=== PATIENT | female | born 1935 | race Caucasian/White ===

== ENCOUNTER 2023-11-19 13:54 | Outpatient (CLI) | payer MEDICARE, MEDICAID, SELFPAY ==
--- NOTE | ~2023-11-19 | MR_ITS ---
EXAMINATION: MR brain/brain stem wo con DATE: 11/19/2023 15:00 INDICATION: Stroke TECHNIQUE: Magnetic resonance imaging (MRI) of the brain and brainstem was performed without intraven ous contrast. Sequences included sagittal and axial T1-weighted SE, axial diffusion-weighted FS SE, a xial T2*-weighted GRE, axial T2-weighted FLAIR, and axial T2-weighted FSE. Apparent diffusion coeffic ient (ADC) maps were created. COMPARISON: None. FINDINGS: There are no areas of restricted diffusion to suggest acute infarction. 1.8 x 1.8 cm T2 hyperintense lesion in the anterior left basal ganglia involving the head of the caudate nucleus, the anterior tova tiform nucleus and the intervening anterior limb of the internal capsule. Heterogeneous internal incr eased T1 signal which can be seen with hemorrhage although there is no evident signal dropout on the T2*weighted imaging to suggest chronic blood products with hemosiderin. No evident associated mass ef fect. More typical pattern of multiple small scattered areas of nonspecific increased T2-weighted sig nal intensity in the cerebral white matter, predominantly involving the deep and periventricular whit e matter consistent with chronic small vessel ischemic disease. There are no intraparenchymal signal abnormalities seen on the other pulse sequences. Symmetric prominence of the sulci consistent with mi ld age-appropriate diffuse cerebral volume loss. The ventricles are symmetric and normal in size. Th ere are no abnormal extra-axial fluid collections. Flow voids are seen in the cerebral arteries on th e T2-weighted sequences consistent with their expected patency. Partial opacification of the left sph enoid sinus. Changes of bilateral intraocular lens replacement. Visualized orbits and soft tissues a re unremarkable. There are no areas of abnormal enhancement on the post contrast images. IMPRESSION: 1. 1.8 cm T1 and T2 hyperintense lesion at the left basal ganglia with increased T1 signal without as sociated susceptibility artifact which is suggestive of either recent intraparenchymal hemorrhage or chronic infarct with secondary necrosis. Solid neoplasm considered less likely but difficult to exclu de in the absence of intravenous contrast. Consider further evaluation with pre and postcontrast head CT. Dr. Rasheed discussed these findings with Dr. Saavedra at 4:05 PM. 2. Age-related changes including mild diffuse volume loss and mild scattered nonspecific white matter T2 hyperintensity consistent with chronic small vessel ischemic disease. Reviewed, dictated and finalized at location B. IMPRESSION: 1. 1.8 cm T1 and T2 hyperintense lesion at the left basal ganglia with increase d T1 signal without associated susceptibility artifact which is suggestive of e ither recent intraparenchymal hemorrhage or chronic infarct with secondary necr osis. Solid neoplasm considered less likely but difficult to exclude in the abs ence of intravenous contrast. Consider further evaluation with pre and postcont rast head CT. Dr. Rasheed discussed these findings with Dr. Saavedra at 4:05 P M. 2. Age-related changes including mild diffuse volume loss and mild scattered no nspecific white matter T2 hyperintensity consistent with chronic small vessel i schemic disease.
== END 2023-11-19 13:55 | disposition home or self-care (01) ==
PROVIDERS: Visit Provider Family Medicine
DX: R90.89 Other abnormal findings on diagnostic imaging of central nervous system (principal); I63.9 Cerebral infarction, unspecified; R90.82 White matter disease, unspecified
CPT/HCPCS: 70551

== ENCOUNTER 2025-07-16 12:36 | Outpatient (NON) | payer MEDICARE, MEDICAID, SELFPAY ==
[2025-07-16 13:31] LABS: Add Urine Microscopic? YES; Appearance Urine Turbid (Clear); Glucose Urine UA Negative (Negative); Leukocyte Esterase Ur 3+ LEU/UL (Negative); Need Manual Microscopic Reviewed; Nitrate Urine Negative (Negative); Specific Grav Ur 1.025 (1.001-1.035)
== END 2025-07-16 12:37 | disposition home or self-care (01) ==
LOC: ANHLAB 12:38
PROVIDERS: Visit Provider Family Medicine
DX: N39.0 Urinary tract infection, site not specified (principal)
CPT/HCPCS: 81001

== ENCOUNTER 2025-07-26 13:43 | Outpatient (NON) | payer MEDICARE, MEDICAID, SELFPAY ==
[2025-07-26 14:07] LABS: Add Urine Microscopic? YES; Appearance Urine Clear (Clear); Glucose Urine UA Negative (Negative); Leukocyte Esterase Ur 1+ LEU/UL (Negative); Nitrate Urine Negative (Negative); Non Pathogenic Casts 0-2; Specific Grav Ur 1.023 (1.001-1.035)
--- OUTSIDE RECORDS SUMMARY | 2025-07-26 14:42 | XMS_ITS | Encounter Summary ---
Author Organization [facility] Healthcare Address [address] [place] [address] Care Team Providers Care Anesthesiologists' Assistant Name Role Phone Jeffrey Pickering MD Primary Care Provider [phone] Barbra Campo PT Unavailable Unavailable Aisha Vidal YARN DRY ROOM WORKER Unavailable Denise MORENO MD, Rohit Greer Unavailable Deepali Vidal Unavailable Deepali Vidla Unavailable [phone] Tanya Sy MA Unavailable [phone] Dolly Gutierres RN Unavailable [phone] Ernestina BlumM Unavailable [phone] Peyton Cooney RN Unavailable [phone] Josue Freitas YARN DRY ROOM WORKER Unavailable UnavailJayson Razo RN Unavailable [phone] Ting Doan YARN DRY ROOM WORKER Unavailable [phone] Ute Helm RN Unavailable [phone] Ute Helm RN Unavailable [phone] Ute eHlm RN Unavailable Kimberly Hansen RN Unavailable Encounter Details Date Type Department Care Team (Late st Contact Info) Description 08/16/2017 Documentation [facility] Intensive OP Behavioral Health [address] [place] [address] 2nd [place] [address] Trudi Shelley Social History Tobacco Use Types Packs/Day Years Used Date Smoking Tobacco: Never Smokeless Tobacco: Never Alcohol Use Standard Drinks/Week Comments No 0 (1 standard drink = 0.6 oz pur e alcohol) Comments Unknown Sex and Gender Information Value Date Recorded Sex Assigned at Not on file Legal Sex Female 10:25 AM VACUUM FILTER OPERATOR Gender Identity Not on file Sexual Orientation Not on file documented as of this encounter Plan of Treatment Not on file documented as of this encounter Visit Diagnoses Not on filedocumented in this encounter Additional Health Concerns Infection Onset Date Last Indicated Resolved Time COVID: Suspected 08/18/2021 08/18/2021 08/19/2021 2:47 AM VACUUM FILTER OPERATOR COVID: Suspected 09/04/2021 09/04/2021 09/05/2021 6:13 AM VACUUM FILTER OPERATOR COVID19 09/04/2021 09/04/2021 09/14/2021 3:05 AM VACUUM FILTER OPERATOR COVID: Recovered Comment:Added based on recent COVID infection. 09/14/2021 10/23/2021 01/12/2022 3:05 AM C DT COVID: Suspected 10/19/2023 10/19/2023 10/19/2023 8:38 PM CDT COVID: Suspected 11/03/2023 11/03/2023 11/03/2023 6:00 PM CDT C. difficile suspected 11/03/2023 11/03/202311/03 1:30 AM CDT COVID: Suspected 06/18/2025 06/18/2025 06/18/2025 3:40 PM VACUUM FILTER OPERATOR documented as of this encounter Care Teams Anesthesiologists' Assistant Relationship Specialty Start Date End [place] [address] PCP - General 11/06/16 Barbra Campo PT Physical Therapist Physical Therapy 08/05/17 03/24/21 Aisha Vidal, YARN DRY ROOM WORKER Placement Coordinator 06/23/18 12/25/18 [place] [address] [facility] [address] [place] [address] Consulting Physician Neurology 10/05/18 Deepali Vidal [address] [place] [address] [address] [place] [address] ACO Care Ballistics Expert 10/03/19 10/08/19 Deepali Vidal [address] [place] [address] [address] [place] [address] ACO Care Ballistics Expert 05/09/20 05/23/20 Tanya Sy MA [address] [place] [address] [address] [place] [address] ACO Care Ballistics Expert 10/25/20 12/09/20 Dolly Gutierres RN [address] [place] [address] [address] [place] [address] Sand Screener 12/13/20 12/17/20 Ernestina Blum DPM [address] [place] [address] Consulting Physician Foot and Ankle Surg 02/08/21 Peyton Cooney, RN [address] [place] [address] [address] [place] [address] Sand Screener 02/11/21 03/24/21 Josue Freitas, CRIS [address] [place] [address] [address] [place] [address] Placement Coordinator 03/13/21 03/13/21 Jayson Harper, CAMERON [address] [place] [address] [address] [place] [address] Sand Screener 04/02/22 06/25/24 Ting Doan [address] [place] [address] Placement Coordinator 06/15/22 06/23/22 Ute Helm RN [address] [place] [address] [address] [place] [address] Sand Screener 11/15/24 12/19/24 Ute Helm RN [address] [place] [address] [address] [place] [address] Sand Screener 01/02/25 01/08/25 Ute Helm RN [address] [place] [address] [address] [place] [address] Sand Screener 01/09/25 01/17/25 Kmiberly Hansen, CAMERON [address] [place] [address] [address] [place] [address] Sand Screener 06/25/25 documented as of this encounter
--- OUTSIDE RECORDS SUMMARY | 2025-07-26 14:42 | XMS_ITS | Encounter Summary ---
Author Organization [facility] Healthcare Address [address] [place] [address] Care Team Providers Care Greige Goods Marker Name Role Phone Jeffrey Pickering MD Primary Care Provider [phone] Barbra Campo PT Unavailable Unavailable Denise MORENO MD, Carlos M. Unavailable [phone] Deepali Vidal Unavailable [phone] Tanya Sy MA Unavailable [phone] Dolly Gutierres RN Unavailable [phone] Ernestina BlumM Unavailable [phone] Peyton Cooney RN Unavailable Josue Freitas PHOTOGRAPHIC INTELLIGENCE OFFICER Unavailable Unavailabl Jayson Mcmillan RN Unavailable Ting Doan PHOTOGRAPHIC INTELLIGENCE OFFICER Unavailable Ute Helm RN Unavailable [phone] Ute Helm RN Unavailable [phone] Ute Helm RN Unavailable [phone] Kimberly Hansen RN Unavailable Encounter Details Date Type Department Care Team (Late st Contact Info) Description 03/20/2020 Telephone [facility] - Imaging [address] [place] [address] Transcribed Order, Provider Social History Tobacco Use Types Packs/Day Years Used Date Smoking Tobacco: Never Smokeless Tobacco: Never Alcohol Use Standard Drinks/Week Comments No 0 (1 standard drink = 0.6 oz pur e alcohol) PHQ-2 Answer Date Recorded PHQ-2 Score 4 03/01/2020 Comments No Sex and Gender Information Value Date Recorded Sex Assigned at Not on file Legal Sex Female 10:25 AM IOS ARCHITECT Gender Identity Not on file Sexual Orientation Not on file documented as of this encounter Plan of Treatment Not on file documented as of this encounter Visit Diagnoses Not on filedocumented in this encounter Additional Health Concerns Infection Onset Date Last Indicated Resolved Time COVID: Suspected 08/18/2021 08/18/2021 08/19/2021 2:47 AM IOS ARCHITECT COVID: Suspected 09/04/2021 09/04/2021 09/05/2021 6:13 AM IOS ARCHITECT COVID19 09/04/2021 09/04/2021 09/14/2021 3:05 AM IOS ARCHITECT COVID: Recovered Comment:Added based on recent COVID infection. 09/14/2021 10/23/2021 01/12/2022 3:05 AM C DT COVID: Suspected 10/19/2023 10/19/2023 10/19/2023 8:38 PM CDT COVID: Suspected 11/03/2023 11/03/2023 11/03/2023 6:00 PM CDT C. difficile suspected 11/03/2023 11/03/202311/03 1:30 AM CDT COVID: Suspected 06/18/2025 06/18/2025 06/18/2025 3:40 PM IOS ARCHITECT documented as of this encounter Care Teams Greige Goods Marker Relationship Specialty Start Date End [place] [address] PCP - General 11/06/16 Barbra Campo, DAWIT Physical Therapist Physical Therapy 08/05/17 03/24/21 [place] [address] [facility] [address] [place] [address] Consulting Physician Neurology 10/05/18 Deepali Vidal [address] [place] [address] [address] [place] [address] ACO Care Nylon Winder 05/09/20 05/23/20 Tanya Sy MA [address] [place] [address] [address] [place] [address] ACO Care Nylon Winder 10/25/20 12/09/20 Dolly Gutierres RN [address] [place] [address] [address] [place] [address] Outside Rigger 12/13/20 12/17/20 Ernestina Blum, DPM [address] [place] [address] Consulting Physician Foot and Ankle Surg 02/08/21 Peyton Cooney RN [address] [place] [address] [address] [place] [address] Outside Rigger 02/11/21 03/24/21 Josue Freitas LCSW [address] [place] [address] [address] [place] [address] Materials Technician 03/13/21 03/13/21 Jayson Harper, CAMERON [address] [place] [address] [address] [place] [address] Outside Rigger 04/02/22 06/25/24 Ting Doan LCSW [address] [place] [address] [address] [place] [address] Materials Technician 06/15/22 06/23/22 Ute Helm RN [address] [place] [address] [address] [place] [address] Outside Rigger 11/15/24 12/19/24 Ute Helm RN [address] [place] [address] [address] [place] [address] Outside Rigger 01/02/25 01/08/25 Ute Helm RN [address] [place] [address] [address] [place] [address] Outside Rigger 01/09/25 01/17/25 Kimberly Hansen RN [address] [place] [address] [address] [place] [address] Outside Rigger 06/25/25 documented as of this encounter
--- OUTSIDE RECORDS SUMMARY | 2025-07-26 14:42 | XMS_ITS | Encounter Summary ---
Author Organization [facility] Healthcare Address [address] [place] [address] Care Team Providers Care Depot Manager Name Role Phone Jeffery Pickering MD Primary Care Provider [phone] Barbra Campo PT Unavailable Unavailable Aisha Vidal BRACE END MAINSPRING FORMER Unavailable Denise MORENO MD, Rohit Greer Unavailable [phone] Deepali Vidal Unavailable [phone] Deepali Vidal Unavailable [phone] Tanya Sy MA Unavailable [phone] Dolly Gutierres RN Unavailable [phone] Ernestina BlumM Unavailable Peyton Cooney RN Unavailable [phone] Josue Freitas BRACE END MAINSPRING FORMER Unavailable UnavailJayson Razo RN Unavailable [phone] Ting Doan BRACE END MAINSPRING FORMER Unavailable [phone] Ute Helm RN Unavailable Ute Helm RN Unavailable [phone] Ute Helm RN Unavailable [phone] Kimberly Hansen RN Unavailable Encounter Details Date Type Department Care Team (Late st Contact Info) Description 12/06/2017 Telephone [facility] Intensive OP Behavioral Health [address] [place] [address] 2nd [place] [address] Trudi Shelley Social History Tobacco Use Types Packs/Day Years Used Date Smoking Tobacco: Never Smokeless Tobacco: Never Alcohol Use Standard Drinks/Week Comments No 0 (1 standard drink = 0.6 oz pur e alcohol) Comments Unknown Sex and Gender Information Value Date Recorded Sex Assigned at Not on file Legal Sex Female 10:25 AM PIPE STEM SAWYER Gender Identity Not on file Sexual Orientation Not on file documented as of this encounter Plan of Treatment Not on file documented as of this encounter Visit Diagnoses Not on filedocumented in this encounter Additional Health Concerns Infection Onset Date Last Indicated Resolved Time COVID: Suspected 08/18/2021 08/18/2021 08/19/2021 2:47 AM PIPE STEM SAWYER COVID: Suspected 09/04/2021 09/04/2021 09/05/2021 6:13 AM PIPE STEM SAWYER COVID19 09/04/2021 09/04/2021 09/14/2021 3:05 AM PIPE STEM SAWYER COVID: Recovered Comment:Added based on recent COVID infection. 09/14/2021 10/23/2021 01/12/2022 3:05 AM C DT COVID: Suspected 10/19/2023 10/19/2023 10/19/2023 8:38 PM CDT COVID: Suspected 11/03/2023 11/03/2023 11/03/2023 6:00 PM CDT C. difficile suspected 11/03/2023 11/03/202311/03 1:30 AM CDT COVID: Suspected 06/18/2025 06/18/2025 06/18/2025 3:40 PM PIPE STEM SAWYER documented as of this encounter Care Teams Depot Manager Relationship Specialty Start Date End Date [place] [address] PCP - General 11/06/16 Barbra Campo PT Physical Therapist Physical Therapy 08/05/17 03/24/21 Aisha Vidal, BRACE END MAINSPRING FORMER Glost Tile Shader 06/23/18 12/25/18 [place] [address] [facility] [address] [place] [address] Consulting Physician Neurology 10/05/18 Deepali Vidal [address] [place] [address] [address] [place] [address] ACO Care Registered Nurse Bone Marrow Transplant 10/03/19 10/08/19 Deepali Vidal [address] [place] [address] [address] [place] [address] ACO Care Registered Nurse Bone Marrow Transplant 05/09/20 05/23/20 Tanya Sy MA [address] [place] [address] [address] [place] [address] ACO Care Registered Nurse Bone Marrow Transplant 10/25/20 12/09/20 Dolly Gutierres RN [address] [place] [address] [address] [place] [address] Accounting Assistant 12/13/20 12/17/20 Ernestina Blum DPM [address] [place] [address] Consulting Physician Foot and Ankle Surg 02/08/21 Peyton Cooney, RN [address] [place] [address] [address] [place] [address] Accounting Assistant 02/11/21 03/24/21 Josue Freitas, CRIS [address] [place] [address] [address] [place] [address] Glost Tile Shader 03/13/21 03/13/21 Jayson Harper, CAMERON [address] [place] [address] [address] [place] [address] Accounting Assistant 04/02/22 06/25/24 Ting Doan [address] [place] [address] Glost Tile Shader 06/15/22 06/23/22 Ute Helm RN [address] [place] [address] [address] [place] [address] Accounting Assistant 11/15/24 12/19/24 Ute Helm RN [address] [place] [address] [address] [place] [address] Accounting Assistant 01/02/25 01/08/25 Ute Helm RN [address] [place] [address] [address] [place] [address] Accounting Assistant 01/09/25 01/17/25 Kimberly Hansen, CAMERON [address] [place] [address] [address] [place] [address] Accounting Assistant 06/25/25 documented as of this encounter
--- OUTSIDE RECORDS SUMMARY | 2025-07-26 14:42 | XMS_ITS | Encounter Summary ---
Author Organization [facility] Healthcare Address [address] [place] [address] Care Team Providers Care Welding Instructor Name Role Phone Jeffrey Pickering MD Primary Care Provider [phone] Denise MORENO MD, Rohit Greer Unavailable [phone] Ernestina Blum DPM Unavailable Jayson Harper RN Unavailable Ting DoanW Unavailable Ute Helm RN Unavailable [phone] Ute Helm RN Unavailable [phone] Ute Helm RN Unavailable [phone] Kimberly Hansen RN Unavailable [phone] Encounter Details Date Type Department Care Team (Late st Contact Info) Description 06/27/2021 Documentation [facility] Physical Therapy - [address] [facility] [place] [address] Traci Rangel, SUPERVISOR PASTE MIXING Social History Tobacco Use Types Packs/Day Years Used Date Smoking Tobacco: Never Smokeless Tobacco: Never Alcohol Use Standard Drinks/Week Comments No 0 (1 standard drink = 0.6 oz pur e alcohol) Social Connection and Isolation Panel Answer Date Recorded In a typical week, how many times do you talk on the phone with family, friends, or neighbors? More than three times a week 05/06/2020 How often do you get togethe r with friends or relatives? More than three times a week 05/06/2020 How often do you attend chur ch or jain services? Never 05/06/2020 Do you belong to any clubs o r organizations such as holiness groups, unions, fraternal or athletic groups, or school groups? No 05/06/2020 How often do you attend meet ings of the clubs or organizations you belong to? Never 05/06/2020 Are you , , di vorced, , never , or living with a partner? 05/06/2020 AUDIT-C Answer Date Recorded Q1: How often do you have a drink containing alc ohol? Never 02/05/2021 Average Number of Drinks Not on file 021 Frequency of Binge Drinking Not on file 01/09 Overall Financial Resource Strain (CARDIA) Answe r Date Recorded How hard is it for you to pa y for the very basics like food, housing, medical care, and heating? Not hard at all 05/06/2020 PHQ-2 Answer Date Recorded PHQ-2 Total Score (If total score is 3 or more points, staff should administer the PHQ-9) 3 06/30/2021 Hunger Vital Sign Answer Date Recorded Within the past 12 months, y ou worried that your food would run out before you got the money to buy more. Never true 05/06/20 20 Within the past 12 months, t he food you bought just didn't last and you didn't have money to get more. Never true 05/06/2020 PRAPARE - Transportation Answer Date Re corded In the past 12 months, has l ack of transportation kept you from medical appointments or from getting medications? No 04/10 In the past 12 months, has l ack of transportation kept you from meetings, work, or from getting things needed for daily living? No 05/06/2020 Housing Stability Vital Sign Answer Chris e Recorded In the last 12 months, was t here a time when you were not able to pay the mortgage or rent on time? No 03/14/2021 In the last 12 months, how many places have you lived? 2 03/14/2021 In the last 12 months, was t here a time when you did not have a steady place to sleep or slept in a alf (including now)? No 03/14/2021 Comments No Sex and Gender Information Value Date Recorded Sex Assigned at Not on file Legal Sex Female 10:25 AM SHED BOSS Gender Identity Not on file Sexual Orientation Not on file documented as of this encounter Plan of Treatment Not on file documented as of this encounter Goals Goal Patient Goal Type Associated Problems Recent Progress Patient-Stated? Author BH-Pain Behavioral Health Improving(12/2019 3:56 PM SHED BOSS) No Gwen Rm, RN Note: Patient will establish a comfort-function goal and identify the pain level that will allow the patient to perform desired activities and achieve an acceptable quality of life. documented as of this encounter Visit Diagnoses Not on filedocumented in this encounter Additional Health Concerns Infection Onset Date Last Indicated Resolved Time COVID: Suspected 08/18/2021 08/18/2021 08/19/2021 2:47 AM SHED BOSS COVID: Suspected 09/04/2021 09/04/2021 09/05/2021 6:13 AM SHED BOSS COVID19 09/04/2021 09/04/2021 09/14/2021 3:05 AM SHED BOSS COVID: Recovered Comment:Added based on recent COVID infection. 09/14/2021 10/23/2021 01/12/2022 3:05 AM C DT COVID: Suspected 10/19/2023 10/19/2023 10/19/2023 8:38 PM CDT COVID: Suspected 11/03/2023 11/03/2023 11/03/2023 6:00 PM CDT C. difficile suspected 11/03/2023 11/03/202311/03 1:30 AM CDT COVID: Suspected 06/18/2025 06/18/2025 06/18/2025 3:40 PM SHED BOSS documented as of this encounter Care Teams Welding Instructor Relationship Specialty Start Date End Date Jeffrey Pickering MD [address] [place] [address] PCP - General 11/06/16 [place] [address] [facility] [address] [place] [address] Consulting Physician Neurology 10/05/18 Ernestina Blum, TROYM [address] [place], [place] [address] Consulting Physician Foot and Ankle Surg 02/08/21 Jayson Harper, CAMERON [address] [place], [place] [address] Alodize Machine Helper 04/02/22 06/25/24 Ting Doan, SCREW MACHINE REPAIRER[address] [place] [address] Fish And Wildlife Warden 06/15/22 06/23/22 Ute Helm RN [address] [place] [address] [address] [place] [address] Alodize Machine Helper 11/15/24 12/19/24 Ute Helm RN [address] [place] [address] [address] [place] [address] Alodize Machine Helper 01/02/25 01/08/25 Ute Helm RN [address] [place] [address] [address] [place] [address] Alodize Machine Helper 01/09/25 01/17/25 Kimberly Hansen RN [address] [place] [address] [address] [place] [address] Alodize Machine Helper 06/25/25 documented as of this encounter
--- OUTSIDE RECORDS SUMMARY | 2025-07-26 14:43 | XMS_ITS | Encounter Summary ---
Author Organization [facility] Healthcare Address [address] [place] [address] Care Team Providers Care Sales Representative Public Utilities Name Role Phone Jeffrey Pickering MD Primary Care Provider [phone] Denise MORENO MD, Rohit Greer Unavailable [phone] Ernestina Blum DPM Unavailable Kimberly Hansen RN Unavailable [phone] Reason for Visit * Reason Onset Date Comments Medical Question/Miscellaneous 06/26/2025 Encounter Details Date Type Department Care Team (Late st Contact Info) Description 06/26/2025 Telephone [facility] [address] [address] Jeffrey Pickering MD [address] [place] [id number] Medical Question/Miscellaneous Social History Tobacco Use Types Packs/Day Years Used Date Smoking Tobacco: Never Smokeless Tobacco: Never Alcohol Use Standard Drinks/Week Comments No 0 (1 standard drink = 0.6 oz pur e alcohol) OASIS D0700: Social Isolation Answer Da te Recorded Frequency of experiencing loneliness or isolatio n Never 05/30/2025 OASIS A1250: Transportation Answer Date Recorded Lack of Transportation (Medical) No 05/30/2025 Lack of Transportation (Non-Medical) No 05/30/2025 Patient Unable or Declines to Respond No 05/30/2025 OASIS B1300: Health Literacy Answer Chris e Recorded Frequency of needing help to read materials from doctor or pharmacy Always 05/30/2025 AUDIT-C Answer Date Recorded Q1: How often do you have a drink containing alc ohol? Monthly or less 09/30/2023 Q2: How many drinks containi ng alcohol do you have on a typical day when you are drinking? 1 or 2 09/30/2023 Q3: How often do you have si x or more drinks on one occasion? Never 09/30/2023 Overall Financial Resource Strain (CARDIA) Answe r Date Recorded How hard is it for you to pa y for the very basics like food, housing, medical care, and heating? Patient unable to answer 01/02/2025 PHQ-2 Answer Date Recorded PHQ-2 Total Score (If total score is 3 or more points, staff should administer the PHQ-9) 1 05/08/2025 PRAPARE - Transportation Answer Date Re corded In the past 12 months, has l ack of transportation kept you from medical appointments or from getting medications? Patient unable to answer 01/02/2025 In the past 12 months, has l ack of transportation kept you from meetings, work, or from getting things needed for daily living? Patient unable to answer 01/02/2025 Housing Stability Vital Sign Answer Chris e Recorded In the last 12 months, was t here a time when you were not able to pay the mortgage or rent on time? No 10/20/2023 In the last 12 months, how many places have you lived? 1 10/20/2023 In the last 12 months, was t here a time when you did not have a steady place to sleep or slept in a care home (including now)? No 10/20/2023 PHQ-9 Answer Date Recorded PHQ-9 Total Score 14 05/04/2024 Housing Stability Vital Sign Answer Chris e Recorded In the last 12 months, was t here a time when you were not able to pay the mortgage or rent on time? Patient unable to answer 01/02/2025 Number of Times Moved in the Last Year Not on fi le 01/02/2025 At any time in the past 12 m [facility], were you homeless or living in a care home (including now)? Patient unable to answer 01/02/2025 Social Connection and Isolation Panel Answer Date Recorded In a typical week, how many times do you talk on the phone with family, friends, or neighbors? More than three times a week 06/19/2025 How often do you get togethe r with friends or relatives? More than three times a week 06/19/2025 How often do you attend chur ch or mandaen services? Never 06/19/2025 Do you belong to any clubs o r organizations such as anabaptism groups, unions, fraternal or athletic groups, or school groups? No 06/19/2025 How often do you attend meet ings of the clubs or organizations you belong to? Never 06/19/2025 Marital Status 06/19/2025 Overall Financial Resource Strain (CARDIA) Answe r Date Recorded How hard is it for you to pa y for the very basics like food, housing, medical care, and heating? Not hard at all 06/19/2025 Hunger Vital Sign Answer Date Recorded Within the past 12 months, y ou worried that your food would run out before you got the money to buy more. Never true 06/19/20 25 Within the past 12 months, t he food you bought just didn't last and you didn't have money to get more. Never true 06/19/2025 PRAPARE - Transportation Answer Date Re corded In the past 12 months, has l ack of transportation kept you from medical appointments or from getting medications? No 06/09 In the past 12 months, has l ack of transportation kept you from meetings, work, or from getting things needed for daily living? No 06/19/2025 Housing Stability Vital Sign Answer Chris e Recorded In the last 12 months, was t here a time when you were not able to pay the mortgage or rent on time? No 06/19/2025 In the past 12 months, how m any times have you moved where you were living? 0 06/19/2025 At any time in the past 12 m [facility], were you homeless or living in a care home (including now)? No 06/19/2025 [facility] Utilities Answer Date Recorded In the past 12 months has th e electric, gas, oil, or water company threatened to shut off services in your home? No 06/19/2025 Personal Safety Answer Date Recorded Have you ever been in or are you currently in a harmful physical or emotional relationship or is someone making you feel afraid or unsafe? Denies 06/18/2025 Education Answer Date Recorded What is the highest level of school you have completed or the highest degree you have received? 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 She saw Patient on 06-23-2025, and is calling with an Update. Started care on Wednesday, and Patient agreed to Nursing, P.T., and O.T. Does message need to be routed? Yes-Action Needed BOARD ERECTOR HELPER documented in this encounter Plan of Treatment Not on file documented as of this encounter Goals Goal Patient Goal Type Associated Problems Recent Progress Patient-Stated? Author ANNETTE General Goal - Patient is knowledgeable about condition when worsening and how to respond ACO Care Management Kimberly Taylor, RN Note: Problem: Knowledge deficit related to signs and symptoms of worsening condition Interventions: - Assess patient's level of understanding related to their condition(s), specific medications and self-management of their chronic conditions. - Send educational materials to patient related to their chronic condition, including signs and symptoms, self-management actions, and serious symptoms that require urgent medical intervention. - Assist patient/provider in developing an action plan for symptom management. - Review with patient weekly: s/s worsening condition, self-management actions to take, when to call CM or provider. BH-Pain Behavioral Health Improving( 3:56 PM BILLBOARD ERECTOR HELPER) Gwen Gardner RN Note: Patient will establish a comfort-function goal and identify the pain level that will allow the patient to perform desired activities and achieve an acceptable quality of life. documented as of this encounter Visit Diagnoses Not on filedocumented in this encounter Care Teams Sales Representative Public Utilities Relationship Specialty Start Date End Date Jeffrey Pickering MD [address] [place] [address] PCP - General 11/06/16 [place] [id number] [facility] [address] [address] Consulting Physician Neurology 10/05/18 Ernestina Blum DPM [address] [place] [id number] Consulting Physician Foot and Ankle Surg 02/08/21 Kimberly Hansen RN [address] [place] [address] [address] [place] [address] Bindery Worker 06/25/25 documented as of this encounter
--- OUTSIDE RECORDS SUMMARY | 2025-07-26 14:43 | XMS_ITS | Encounter Summary ---
Author Organization [facility] Healthcare Address [address] [place] [address] Care Team Providers Care Detective Precinct Name Role Phone Jeffrey Pickering MD Primary Care Provider [phone] Denise MORENO MD, Rohit Greer Unavailable [phone] Ernestina Blum DPM Unavailable [phone] Kimberly Hansen RN Unavailable Reason for Visit * Reason Onset Date Comments Additional Services Or Orders 06/29/2025 Encounter Details Date Type Department Care Team (Late st Contact Info) Description 06/29/2025 Telephone [facility] [address] [place] [address] Jeffrey Pickering MD [address] [place] [address] Additional Services Or Orders Social History Tobacco Use Types Packs/Day Years [...] more points, staff should administer the PHQ-9) 0 07/03/2025 PRAPARE - Transportation Answer Date Re corded [...] any time in the past 12 m [facility], were you homeless or living in a care home (including now)? Patient unable to answer 01/02/2025 Social Connection and Isolation Panel Answer Date Recorded In a typical week, how many times do you talk on the phone with family, friends, or neighbors? More than three times a week 07/03/2025 How often do you get togethe r with friends or relatives? More than three times a week 07/03/2025 How often do you attend chur ch or confucianism services? Never 07/03/2025 Do you belong to any clubs o r organizations such as jainism groups, unions, fraternal or athletic groups, or school groups? No 07/03/2025 How often do you attend meet ings of the clubs or organizations you belong to? Never 07/03/2025 Are you , , di vorced, , never , or living with a partner? 07/03/2025 Overall Financial Resource Strain (CARDIA) Answe r Date Recorded How hard is it for you to pa y for the very basics like food, housing, medical care, and heating? Not hard at all 07/03/2025 Hunger Vital Sign Answer Date Recorded Within the past 12 months, y ou worried that your food would run out before you got the money to buy more. Never true 07/03/20 25 Within the past 12 months, t he food you bought just didn't last and you didn't have money to get more. Never true 07/03/2025 PRAPARE - Transportation Answer Date Re corded In the past 12 months, has l ack of transportation kept you from medical appointments or from getting medications? No 06/10 In the past 12 months, has l ack of transportation kept you from meetings, work, or from getting things needed for daily living? No 07/03/2025 Housing Stability Vital Sign Answer Chris e Recorded In the last 12 months, was t here a time when you were not able to pay the mortgage or rent on time? No 07/03/2025 In the past 12 months, how m any times have you moved where you were living? 0 07/03/2025 At any time in the past 12 m [facility], were you homeless or living in a care home (including now)? No 07/03/2025 [facility] Utilities Answer Date Recorded In the past 12 months has th [employer] electric, gas, oil, or water company threatened to shut off services in your home? 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 FYI Dr Pickering STERED NURSE CARDIOVASCULAR ICU * Telephone Encounter - Gerald Ortiz - 06/29/2025 3:58 PM CST Additional Services or Orders Type of Service Requested:Occupational Therapy Duration/Number of Visits: 1 x week for 4 weeks Is a verbal order acceptable? Yes Reason for Request (e.g. condition/symptom, date of COVID exposure if applicable): Upper body strengthen and showering Details Regarding Additional Services (e.g. type of home health, type of equipment, type of test, etc.): OT Where will services be performed? (if outside of the practice, facility name, address, phone/fax offacility): In home Additional Comments: n/a Does message need to be routed? Yes-Action Needed STERED NURSE CARDIOVASCULAR ICU documented in this encounter Plan of Treatment Not on file documented as of this encounter Goals Goal Patient Goal Type Associated Problems Recent Progress Patient-Stated? Author ANNETTE General Goal - Patient is knowledgeable about condition when worsening and how to respond ACO Care Management No Kimberly Hansen, RN Note: Problem: Knowledge deficit related to [...] provider. BH-Pain Behavioral Health Improving( 3:56 PM REGISTERED NURSE CARDIOVASCULAR ICU) No Gwen Rm RN Note: Patient will establish a comfort-function goal and identify the pain level that will allow the patient to perform desired activities and achieve an acceptable quality of life. documented as of this encounter Visit Diagnoses Not on filedocumented in this encounter Care Teams Detective Precinct Relationship Specialty Start Date End Date Jeffrey Pickering MD [address] [place] [address] PCP - General 11/06/16 [place] [address] [facility] [address] [address] Consulting Physician Neurology 10/05/18 Ernestina Blum DPM [address] [place] [id number] Consulting Physician Foot and Ankle Surg 02/08/21 Kimberly Hansen, [place] [address] [place] [address] [address] [place] [address] Vehicle Insurance Agent 06/25/25 documented as of this encounter
--- OUTSIDE RECORDS SUMMARY | 2025-07-26 14:43 | XMS_ITS | Clinical Summary ---
Author Organization [facility] Address [address] [place] [address] Care Team Providers Care Comfort Filler Name Role Phone Jeffrey Pickering MD Primary Care Provider [phone] Denise MORENO MD, Rohit Greer Unavailable [phone] Ernestina Blum DPM Unavailable Kimberly Hansen RN Unavailable Allergies Active Allergy Reactions Criticality Noted Date Comments Sulfamethoxazole-Trimetho prim Rash Medium 03/13/2019 Morgan Pepper Nausea & Vomiting Low 01/03/2020 Clindamycin Itching Low Dimenhydrinate Rash Medium 09/26/2015 Feathers Shortness of breath High 01/03/2020 Iodides Hives High Iodine Hives High 09/26/2015 Meperidine Itching Low Severe itching Mold Shortness of breath High 01/03/2020 Propoxyphene-Acetaminophe n Itching Low 10/22/2023 Severe itching Rivastigmine Itching High 10/28/2021 Sulfa (Sulfonamide Antibiotics) Itching Low 02/05/2021 Medications vitamin B complex (B COMPLEX ORAL)Indications:Pr evention Take 1 tablet by mouth daily Active acetaminophen (TYLENOL) 500 mg tabletIndications:P ain Take 1 tablet (500 mg total) by mouth 2 (two) times a day Take 2 tablets by mouth at bedtime every day. Take 2 tablets by mouth in the morning as needed for pain Active fluticasone propionate (FLONASE) 50 mcg/actuation nasal sprayIndications:Al lergic Rhinitis Administer 2 sprays into each nostril daily 3 each 4 01/17/20 24 Active melatonin 5 mg tabletIndications:S leep aid Take 1 tablet (5 mg total) by mouth nightly 05/04/20 24 Active gabapentin (NEURONTIN) 600 mg tabletIndications:N europathic Pain TAKE ONE TABLET TWICE DAILY 180 tablet 08/18/19 25 Active levothyroxine (SYNTHROID) 25 mcg tabletIndications:h ypothyroidism TAKE ONE TABLET EVERY DAY 30 tablet 10/24/19 25 Active clopidogreL (PLAVIX) 75 mg tabletIndications:C erebral Thromboembolism Prevention Take 1 tablet (75 mg total) by mouth daily 30 tablet 11/01/19 25 026 Active memantine (NAMENDA) 10 mg tabletIndications:M oderate to Severe Alzheimer's Type Dementia TAKE ONE TABLET TWICE DAILY 60 tablet 12/09/19 25 Active atorvastatin (LIPITOR) 80 mg tabletIndications:h yperlipidemia TAKE ONE TABLET EVERY NIGHT 30 tablet 12/09/19 25 Active dicyclomine (BENTYL) 20 mg tabletIndications:A bdominal Pain with Cramps TAKE TWO TABLETS TWICE DAILY 120 tablet 12/09/19 25 Active aspirin 81 mg enteric coated tabletIndications:p revention of thrombosis TAKE ONE TABLET EVERY DAY 30 tablet 12/09/19 25 Active escitalopram (LEXAPRO) 10 mg tabletIndications:G eneralized Anxiety Disorder TAKE ONE TABLET EVERY DAY 90 tablet 12/09/[address] (PROTONIX) 40 mg EC tabletIndications:T reatment of Non-Bleeding Gastric Disorder TAKE ONE TABLET EVERY DAY 90 tablet 12/09/19 25 Active multivitamin tabletIndications:V itamin Deficiency Prevention Take 1 tablet by mouth Active polyvinyl alcohol (LIQUIFILM TEARS) 1.4 % ophthalmic solutionIndications :Dry Eye Administer 1 drop into affected eye(s) 3 (three) times a day as needed Active meloxicam (MOBIC) 7.5 mg tabletIndications:O steoarthritis TAKE ONE TABLET EVERY DAY 30 tablet 11 04/27/20 25 Active hyoscyamine (LEVSIN) 0.125 mg SL tabletIndications:U rinary Incontinence TAKE TWO TABLETS TWICE DAILY WITH BREAKFAST AND LUNCH 120 tablet 11 04/27/20 25 Active meclizine (ANTIVERT) 12.5 mg tabletIndications:M eniere's disease, unspecified laterality Take 1 tablet (12.5 mg total) by mouth 3 (three) times a day as needed for dizziness 270 tablet 4 05/08/20 25 Active tiZANidine (ZANAFLEX) 2 mg tablet TAKE ONE TABLET TWICE DAILY 180 tablet 11 05/25/20 25 Active donepeziL (ARICEPT) 5 mg tablet TAKE ONE TABLET EVERY NIGHT 30 tablet 2 05/28/20 25 Active cinacalcet (SENSIPAR) 30 mg tablet Take 1 tablet (30 mg total) by mouth daily 30 tablet 06/23/20 25 Active ubrogepant (UBRELVY) 100 mg tabletIndications:M igraine Take 1 tablet (100 mg total) by mouth once as needed for migraine May repeat dose once in 2 hours if no relief. Do not exceed 2 doses in 24 hours. 10 tablet 5 06/28/20 25 026 Active azelastine (OPTIVAR) 0.05 % ophthalmic solutionIndications :Allergic Conjunctivitis ADMINISTER 1 DROP INTO BOTH EYES 2 (TWO) TIMES A DAY 6 mL 3 07/13/20 25 Active polyethylene glycol (MIRALAX) 17 gram/dose bulk powderIndications:C onstipation Predominant Irritable Bowel Syndrome,constipati on Take 17 g by mouth daily 1530 g 3 05/04/20 24 025 Discontinu ed(Therapy completed) ubrogepant (UBRELVY) 100 mg tabletIndications:M igraine Take 1 tablet (100 mg total) by mouth once as needed for migraine May repeat dose once in 2 hours if no relief. Do not exceed 2 doses in 24 hours. 10 tablet 5 09/28/19 25 025 Discontinu ed(Reorder ) cefdinir (OMNICEF) 300 mg capsuleIndications: Urinary Tract/Genitourinary Infection Take 1 capsule (300 mg total) by mouth 2 (two) times a day for 7 doses 7 capsule 06/22/20 25 025 cephalexin (KEFLEX) 500 mg capsule Take 1 capsule (500 mg total) by mouth 2 (two) times a day for 7 days 14 capsule 07/04/20 25 025 ciprofloxacin (CIPRO) 500 mg tabletIndications:U rinary Tract/Genitourinary Infection Take 1 tablet (500 mg total) by mouth 2 (two) times a day for 7 days 14 tablet 07/17/20 25 025 Active Problems Problem Noted Date Diagnosed Date Weakness 04/10/2025 Assessment & Plan (04/10/2025 11:11 AM CDT): Most likely multifactorial and will continuye to follow electrolytes and renal function. Continue to support physical therapy at home and will montior response. No change. Recurrent falls 04/10/2025 Assessment & Plan (04/10/2025 11:11 AM CDT): Home health and will follow response. Near syncope 04/10/2025 Assessment & Plan (04/10/2025 11:11 AM CDT): Most likely multifactorial and will continue to montior response. No chest pains/palptiations. Acute UTI 04/10/2025 Assessment & Plan (04/10/2025 11:12 AM CDT): Reivewe dimprot fo hydration and refer to cephalexin for UTI. Gait instability 02/15/2025 Acute cystitis with hematuria 01/01/2025 Mixed hyperlipidemia 09/04/2024 Assessment & Plan (09/04/2024 11:47 AM CORE FEEDER): Stable continue Lipitor Pressure injury of sacral region, stage 1 2023 Assessment & Plan (07/25/2024 3:23 PM CORE FEEDER): NO open area. Pressure relieving patch noted on area. Will continue to monitor and place referral to home health. Class 1 obesity due to exces s calories with serious comorbidity and body mass index (BMI) of 30.0 to 30.9 in adult 07/25/2024 Assessment & Plan (05/08/2025 1:44 PM CDT): Weight appropriate for patient. Assessment & Plan (01/18/2025 2:14 PM CDT): Weight appropriate for patient. Assessment & Plan (10/31/2024 3:45 PM CDT): Weight appropriate for patient. Assessment & Plan (07/25/2024 3:24 PM CORE FEEDER): Weight appropriate for patient. Polypharmacy 05/04/2024 Assessment & Plan (05/04/2024 1:46 PM CDT): Will refer to [facility] due to several medications on list that may be able to be discontinued and help with fatigue and other symptoms. Will review medication list from pharmacy as well and update list. Allergic conjunctivitis and rhinitis, bilateral 05/04/2024 Assessment & Plan (05/04/2024 1:48 PM CDT): Azelastine eye drops ordered. Could be causing stomach pain and poor appetite due to post nasal drainage. Bilateral carotid artery stenosis 02/25/2024 Assessment & Plan (09/04/2024 11:46 AM CORE FEEDER): Severe bilateral carotid artery disease based on duplex has had progression of her left-sided disease, overall asymptomatic. Given her underlying dementia I do not think intervention is appropriate at this time. I discussed these findings with the patient and her daughter. Continue risk factor modification with ASA statin therapy. Assessment & Plan (02/25/2024 12:08 PM CDT): Severe left ICA stenosis and moderate right ICA stenosis. Discussed findings with the patient and her daughter, given her underlying cognitive dysfunction and overall she is asymptomatic from her carotid disease I would recommend medical management with ASA statin therapy good blood pressure control. Her stroke during her hospitalization appears to be not related to the carotid disease. Continue ongoing surveillance follow up in 6-12 months. Atherosclerotic heart diseas e of [place] coronary artery with other forms of angina pectoris 12/07/2023 Assessment & Plan (05/08/2025 1:44 PM CDT): See above Assessment & Plan (12/07/2023 2:08 PM CDT): Secondary prevention and will continue to follow response. Atherosclerosis of left carotid artery Assessment & Plan (01/28/2024 11:39 AM CDT): Severe greater than 70% stenosis of the left ICA based on duplex. Based on her MRI I do not think her stroke would be attributable to her carotid however she may have greater than 80% stenosis. CTA head and neck ordered for further evaluation, discussed with the patient and her daughter ultimately if she has high-grade stenosis and may need surgical intervention we will need to discuss further given her underlying cognitive dysfunction. Continue ASA Plavix statin therapy good blood pressure control. Altered mental status, unspe cified altered mental status type 11/03/2023 Hypercalcemia 10/20/2023 UTI (urinary tract infection) 10/20/2023 Hypertensive emergency 10/20/2023 Cerebrovascular accident (CVA), unspecified mech anism 10/19/2023 Assessment & Plan (05/08/2025 1:44 PM CDT): Stable and well controlled. Continues on Plavix, Atorvastatin, and ASA for prevention. Will continue to monitor. Assessment & Plan (10/31/2024 3:45 PM CDT): COntinue secondary preventoin and reviewed recommendation for f/u with vascular surgery. Continues on Plavix, Atorvastatin, ASA, and tight control BP and cholesterol. Will continue to monitor. Orders: clopidogreL (PLAVIX) 75 mg tablet; Take 1 tablet (75 mg total) by mouth daily CBC with auto differential; Future Assessment & Plan (12/07/2023 2:05 PM CDT): COntinue secondary preventoin and reviewed recommendation for f/u with vascular sdurgeyr. Coronary artery disease invo lving coronary bypass graft of [place] heart without angina pectoris 05/16/2023 Assessment & Plan (05/08/2025 1:44 PM CDT): COntinue secondary preventoin and reviewed recommendation for f/u with vascular surgery. Continues on Plavix, Atorvastatin, ASA, and tight control BP and cholesterol. Will continue to monitor. Assessment & Plan (04/10/2025 11:10 AM CDT): Secondary prevention. Continues on DAPT and high intenstiy statin therapy. No acute changes. Assessment & Plan (10/31/2024 3:45 PM CDT): COntinue secondary preventoin and reviewed recommendation for f/u with vascular surgery. Continues on Plavix, Atorvastatin, ASA, and tight control BP and cholesterol. Will continue to monitor. Orders: clopidogreL (PLAVIX) 75 mg tablet; Take 1 tablet (75 mg total) by mouth daily Assessment & Plan (12/07/2023 2:06 PM CDT): Secondary pevnetoni and continues on clopidogre and aspirin. COntinues on statin therapy. Vertigo 05/15/2023 Alzheimer's dementia 01/27/2022 Assessment & Plan (05/08/2025 1:44 PM CDT): Stable and no worsening noted. Continues on Aricept and Namenda. Will continue to monitor. Assessment & Plan (09/30/2023 1:29 PM CORE FEEDER): Has good support system. Accompanied by caregiver today. Printed instructions provided as well. Chronic pain of multiple joints 04/24/2021 Assessment & Plan (05/08/2025 1:44 PM CDT): Stable and well controlled. Will continue on Gabapentin, Tylenol, Tizanidine, and monitoring. Bruising 08/13/2020 Assessment & Plan (08/13/2020 3:01 PM CORE FEEDER): Labs ordered; will contact Mrs Trujillo w/results once rec'd. Other specified abnormal findings of blood chemi stry 08/13/2020 Assessment & Plan (08/13/2020 2:56 PM CORE FEEDER): CBC, iron panel & ferritin ordered. Will have completed at [facility]. Will contact Mrs Trujillo w/results once rec'd. Does not do mychart. No blood in stool or urine. Cervical myofascial pain syndrome 06/13/2020 Bandemia 05/03/2020 Essential hypertension 05/03/2020 Assessment & Plan (05/08/2025 1:44 PM CDT): Stable and controlled. Will continue to monitor. Will continue on Amlodipine. Assessment & Plan (01/18/2025 2:14 PM CDT): Was started on Amlodipine for elevated blood pressure. Stable and controlled. Will continue to monitor. Assessment & Plan (10/31/2024 3:45 PM CDT): Blood pressure stable and well controlled. Not taking HTN medication. Will continue to monitor. Assessment & Plan (09/04/2024 11:47 AM CORE FEEDER): Stable, antihypertensives has been discontinued. Assessment & Plan (07/25/2024 2:49 PM CORE FEEDER): Blood pressure stable and well controlled. Still controlled without medications. Assessment & Plan (02/25/2024 12:08 PM CDT): Stable, antihypertensives has been discontinued. Hyponatremia 05/03/2020 s/p C3-7 lami/ C2-T1 PSF on 05/02/[address] 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 Continues on Gabapentin, Tizanidine, and Tylenol. Encouraged to continue use of Rolator for mobility support. Assessment & Plan (05/04/2024 1:50 PM CDT): Encouraged to continue use of Rolator for mobility support. Assessment & Plan (12/07/2023 2:06 PM CDT): No increased claudicatory sypmtoms. Paitent has responded to PT and OT. Markedly improved mobility and no falls since 15 November 2023. Would be amenable to continued PT. Insomnia secondary to chronic pain 01/03/2020 Assessment & Plan (05/08/2025 1:44 PM CDT): Stable and controlled. Continues on Gabapentin and Melatonin. Allergic rhinitis 09/11/2019 Assessment & Plan (05/08/2025 1:44 PM CDT): Stable and well controlled. Will continue on PRN Flonase. Will continue to montior. Assessment & Plan (09/11/2019 3:22 PM CORE FEEDER): Nasal saline spray (Simply saline, Little Remedies, Interior, [place]) 2 second sprays or 2 squeezes into each nostril while looking down over the sink, do not need to sniff in. Followed by Flonase 2 sprays into each nostril while looking down over the sink, do not sniff in or blow nose after use daily Use the saline 3 times daily Use adhesive eye glasses pads to eye glasses Precancerous lesion 08/15/2019 Assessment & Plan (08/15/2019 9:15 PM CORE FEEDER): Referral to Dr Mata. Contact info given to Mrs Trujillo. Aware that Dr Mata's office should call to set up but she can call if no call rec'd by end of this week. History of gastric bypass 05/26/2018 History of iron deficiency 05/26/2018 Assessment & Plan (08/14/2019 11:10 AM CORE FEEDER): To call Dr Tamez at [facility] to set up appt/lab testing if needed. Last CBC WNL 06/2018. Chronic fatigue 08/06/2017 Assessment & Plan (07/25/2024 2:49 PM CORE FEEDER): Will change the Lexapro to nightly to see if that helps with fatigue. Will continue to monitor. Assessment & Plan (08/13/2020 2:59 PM CORE FEEDER): Labs ordered. Will contact Mrs Trujillo once rec'd. She does not use the TiVUSt function. Discussed activity; she has been increasing activity as she can. Uses wheeled walker, improving strength. Has completed PT for recent c-spine surgery. Meniere's disease 08/06/2017 Assessment & Plan (05/08/2025 1:44 PM CDT): Having increased dizziness. Will start on Meclizine and monitor. May be orthostatic in nature. Discussed making positional changes slowly. Orders: meclizine (ANTIVERT) 12.5 mg tablet; Take 1 tablet (12.5 mg total) by mouth 3 (three) times a day as needed for dizziness Assessment & Plan (09/30/2023 1:29 PM CORE FEEDER): Chronic. Safety reviewed. Will continue to monitor. Major depressive disorder, recurrent episode, mo derate 07/13/2017 Assessment & Plan (05/08/2025 1:44 PM CDT): Stable and well controlled. Will continue on Lexapro. Will continue to monitor. Assessment & Plan (10/31/2024 3:45 PM CDT): Stable and well controlled. Will continue on Lexapro. Will continue to monitor. Assessment & Plan (07/25/2024 2:48 PM CORE FEEDER): Will change Lexapro to nightly to see if that helps with fatigue. Will continue to monitor. Assessment & Plan (05/04/2024 1:41 PM CDT): Continue on Lexapro and stable moods. Assessment & Plan (12/07/2023 2:08 PM CDT): MOod is stable. WOuld continue to benefit from increased social interaction and would benefit from assisted living facilty arrangement. IBS (irritable bowel syndrome) 05/20/2017 Assessment & Plan (05/08/2025 1:44 PM CDT): Stable and well controlled. No recent flare ups. Will continue on MiraLAX, Bentyl, Levsin,and monitoring. Assessment & Plan (10/31/2024 3:45 PM CDT): Stable and well controlled. Will continue on MiraLAX and Bentyl. Will continue to monitor. Assessment & Plan (05/04/2024 1:41 PM CDT): Dealing with constipation at this time. Will continue on Bentyl and Levsin. Assessment & Plan (09/30/2023 1:29 PM CORE FEEDER): Diarrhea. Benign abd exam. Hold colace. Continue with water intake. Monitor response. Can apply desitin to buttock. Set on soft cushions or doughnut if having tailbone pain. Red flags reviewed. Neuropathy 03/14/2015 Overview (09/17/2017): Peripheral neuropathy Assessment & Plan (05/08/2025 1:44 PM CDT): Stable and controlled. Will continue on Gabapentin. Will continue to monitor. Assessment & Plan (10/31/2024 3:45 PM CDT): Stable and controlled. Will continue on Gabapentin. Will continue to monitor. Assessment & Plan (07/25/2024 2:46 PM CORE FEEDER): Chronic and stable. Well controlled with Gabapentin. Will continue. Assessment & Plan (05/04/2024 1:39 PM CDT): Continue with Gabapentin. Stable at this time. Assessment & Plan (08/14/2019 11:11 AM CORE FEEDER): To decrease gabapentin from 1200mg bid to 600mg tid. To hold on tramadol only with moderate to severe pain. Discussed brain fog/confusion w/each of these medications. Can cause dizziness. Hypothyroidism 12/23/2013 Overview (09/17/2017): Hypothyroidism Assessment & Plan (05/08/2025 1:44 PM CDT): Euthyroid. Will continue on Synthroid. Will continue to monitor. Assessment & Plan (10/31/2024 3:45 PM CDT): Labs ordered. Euthyroid. Will continue on Synthroid. Will continue to monitor. Orders: T4, free; Future TSH; Future Assessment & Plan (07/25/2024 2:35 PM CORE FEEDER): Euthyroid. TSH and T4 are normal. Will continue on Synthroid. Will continue to monitor. Assessment & Plan (05/04/2024 1:38 PM CDT): TSH and T4 ordered will continue on Levothyroxine. Will adjust if needed once labs are back. Assessment & Plan (08/13/2020 2:53 PM CORE FEEDER): Lab Results Component Value Date TSH 2.98 09/26/2018 TSH 7.60 (H) 08/06/2017 TSH 3.69 12/03/2016 No TFTs in chart since 2019. TSH/T4 ordered; will contact with results when received. Reviewed med SE & scheduling. Reviewed sxs hypo/hyperthyroidism. No changes at this time. Assessment & Plan (12/01/2017 5:18 PM CDT): 08/06/17 TSH 7.60-need to recheck-This could be a cause of her symptoms Hyperlipidemia due to type 2 diabetes mellitus 0 12/23/2013 Overview (11/13/2016): HYPERLIPIDEMIA NEC/NOS Assessment & Plan (05/08/2025 1:44 PM CDT): Lipid panel stable and LDL at goal of 70. Will continue Atorvastatin. Assessment & Plan (10/31/2024 3:45 PM CDT): Lipid panel stable and LDL at goal of 70. Will continue Atorvastatin. Orders: Lipid panel; Future Assessment & Plan (07/25/2024 2:37 PM CORE FEEDER): Lipid panel stable and LDL at goal of 70. Will continue Atorvastatin. Assessment & Plan (05/04/2024 1:40 PM CDT): Lipid panel ordered. Will continue on Atorvastatin. Assessment & Plan (02/25/2024 12:08 PM CDT): Stable continue Lipitor 80 mg. Assessment & Plan (01/28/2024 11:39 AM CDT): Stable continue Lipitor 80 mg Ulnar neuropathy of both upper extremities Resolved Problems Problem Noted Date Diagnosed Date Resolved Date Moderate dementia 02/15/2025 05/08/2025 Moderate protein-calorie malnutrition 01/03/2025 06/21/2025 Simple chronic bronchitis 10/31/2024 Assessment & Plan (10/31/2024 3:45 PM CDT): Stable and well controlled. No recent flare ups. Need for influenza vaccination 05/04/2024 01/03/2025 Assessment & Plan (05/04/2024 1:44 PM CDT): [facility] Hyperkalemia 05/04/2024 01/03/2025 Assessment & Plan (05/04/2024 1:45 PM CDT): CMP ordered was elevated at previous appointment will recheck to ensure back to normal. Advised to continue to not take supplemental potassium or high potassium foods. Controlled type 2 diabetes m baldemar without complication, without long-term current use of insulin 12/07/2023 01/03/2025 Assessment & Plan (10/31/2024 3:45 PM CDT): Lab Results Component Value Date HGBA1C 5.4 07/24/2024 HGBA1C 5.1 10/20/2023 HGBA1C 5.6 06/29/2023 Stable and well controlled. Will continue monitor. Orders: Comprehensive metabolic panel; Future Hemoglobin A1c; Future Assessment & Plan (07/25/2024 3:23 PM CORE FEEDER): Stab Assessment & Plan (05/04/2024 1:44 PM CDT): Lab Results Component Value Date HGBA1C 5.1 10/20/2023 HGBA1C 5.6 06/29/2023 HGBA1C 5.0 11/19/2022 Will order and check A1C Assessment & Plan (12/07/2023 2:07 PM CDT): Secondray prevneiotn. Diet and execise. Severe obesity (BMI 35.0-39. 9) with comorbidity 12/07/2023 10/31/2024 Assessment & Plan (12/07/2023 2:07 PM CDT): Encourage healthy food chocies. WOuld benefit from nturitional support available in an assisted living facility. Type 2 diabetes mellitus wit h diabetic polyneuropathy, without long-term current use of insulin 12/07/2023 01/03/2025 Assessment & Plan (10/31/2024 3:45 PM CDT): See neuropathy above. Orders: Comprehensive metabolic panel; Future Assessment & Plan (12/07/2023 2:08 PM CDT): Stable. NO hyhpoglycemic symptoms. Intraparenchymal hemorrhage of brain 10/20/2023 05/08/2025 STEMI (ST elevation myocardial infarction) 02/15/2023 05/08/2025 Assessment & Plan (02/22/2023 2:25 PM CDT): Patient is feeling well post hospital discharge. Blood pressure well controlled. She is taking medications as prescribed (Brilinta, lisinopril, metoprolol, and atorvastatin). Some SOB but feels this is overall her baseline, discussed side effects of brilinta use and will continue to monitor. Normal exam and well- appearing in office today. She is scheduled for follow up with cardiology next month. We discussed signs and symptoms that would warrant patient returned to the emergency department, patient with life Alert necklace. Dizziness 11/18/2022 01/03/2025 Cellulitis of fourth toe of left foot 02/05/2021 01/03/2025 Neuropathic ulcer of right foot (CMS/HCC) 10/18/2020 11/03/2021 Abscess or cellulitis of foot 10/17/2020 01/03/2025 BMI 30.0-30.9,adult 08/13/2020 02/23/20 Assessment & Plan (08/13/2020 3:01 PM CORE FEEDER): Reviewed need to lose weight, reviewed health benefits. Reviewed recommendations for daily intake & activity 20-30 minutes/day. Discussed healthy diet and importance of regular physical activity. Moderate malnutrition (CMS/HCC) 05/22/2020 11/03/2021 Moderate malnutrition 05/03/20202020 Long-term current use of opiate analgesic 03/01/2020 12/06/2023 Degenerative cervical spinal stenosis 02/07/2020 01/03/2025 Midline thoracic back pain 01/17/2020 0 05/08/2025 Cervical radiculopathy 01/17/202008/13 Lumbar radiculopathy 01/03/2020 025 Nasal pain 09/11/2019 01/03/2025 Assessment & Plan (09/11/2019 3:22 PM CORE FEEDER): Nasal saline spray (Simply saline, Little Remedies, Interior, [place]) 2 second sprays or 2 squeezes into each nostril while looking down over the sink, do not need to sniff in. Followed by Flonase 2 sprays into each nostril while looking down over the sink, do not sniff in or blow nose after use daily Use the saline 3 times daily Use adhesive eye glasses pads to eye glasses Skin ulcer of right foot, li mited to breakdown of skin 09/06/2019 08/13/2020 Medicare annual wellness visit, subsequent 08/15/2019 01/03/2025 Assessment & Plan (05/04/2024 1:49 PM CDT): In regard to health maintenance, Influenza vaccine- given at appt Pneumococcal vaccine- UTD Eat a healthy diet: focus on lean meats and proteins, more fruits, vegetables and whole grains and low in sugars and fats. Limit red meat and avoid processed meat. Maintain a healthy weight; avoid being overweight. Aim for a normal body mass index (BMI) of 18.5-24.9. Help learning to eat healthier, we can set up appointment with cider maker/ceramic tiler. Have an active lifestyle, strive for 30 minutes of moderate exercise 5 times a week and strength or resistance training at least twice a week. Use broad-spectrum (UVA+UVB) sunscreen with SPF 30 or greater, is water resistant, limit time spent in the sun (10 am-4pm), wear hat, wear UV protective clothing, wear sunglasses. Never use a tanning bed. Skin that was irradiated may be more sensitive over your lifetime. Limit alcohol intake, 1 drink per day for a woman and 2 drinks per day for a man. Assessment & Plan (08/15/2019 9:14 PM CORE FEEDER): DEXA ordered. Will contact with results once received. BMI 31.0-31.9,adult 08/15/2019 08/13/19 21 Assessment & Plan (08/15/2019 9:14 PM CORE FEEDER): Reviewed need to lose weight, reviewed health benefits. Reviewed recommendations for daily intake & activity 20-30 minutes/day. Discussed healthy diet and importance of regular physical activity. Discussed chair exercises. Urinary incontinence 04/25/2019 025 Assessment & Plan (04/25/2019 2:28 PM CDT): Referral to Dr Oliva for eval of chronic UTI sypmtoms/incontinence Chronic UTI 04/25/2019 08/13/2020 Assessment & Plan (04/25/2019 2:22 PM CDT): Worsening incontinence and chronic UTI/symptoms. Referral to Dr Oliva at [facility]. Contact info given to Mrs Trujillo at appt today. Aware that his office will call her to set up. Aware to keep adequate fluid intake--not only when she is having dysuria/UTI symptoms. NEGATIVE urine dipstick in office today. Will send out culture. Will contact w/results once rec'd. Generalized abdominal pain 12/05/2018 0 08/13/2020 Assessment & Plan (12/05/2018 3:14 PM CDT): CT abd/pelvis w/o contrast ordered. Will contact w/results once rec'd. Reviewed red flags; what would warrant rtc or ED for more emergent eval. NOT an acute abd at this time. Initially declined CT abd but ongoing pain, n/v/d. Agreeable after discussing red flags. Epigastric pain 12/01/2017 08/13/2020 Assessment & Plan (12/01/2017 2:15 PM CDT): Last Ct scan 01/2017 Extensive diverticulosis of colon without changes of diverticulitis. 3. Arteriosclerosis. 4. Status post cholecystectomy, appendectomy, tubal ligation, and gastric bypass. 5. Degenerative changes in lumbar spine and bilateral hips. 6. Very small supraumbilical hernia with only adipose tissue within it. Acute cystitis without hematuria 12/01/2017 08/13/2020 Assessment & Plan (12/05/2018 3:11 PM CDT): UA dipstick completed. Bactrim DS bid x 10 days sent. Aware to complete full course of abx. Reviewed abx Ses/scheduling. Push fluids. UA sent for culture. Will call once results rec'd. Assessment & Plan (12/01/2017 5:18 PM CDT): Complete antibiotic as prescribed Do not hold your urine. Urinate as soon as you feel the need to go Drink plenty of water and fluids. Limit alcohol, caffeine, and citrus juices- They will irritate the bladder Wipe front to back & wear cotton underwear Try emptying your bladder before and after having sexual intercourse Follow up with your PCP if you are not getting better If you have severe back, flank, or groin pain with nausea/vomiting or are unable to get comfortable from the pain, please go to ER for further treatment Tylenol/Motrin for pain Neutropenia 09/15/2017 11/03/2021 Fall 08/06/2017 08/13/2020 Assessment & Plan (08/15/2019 9:23 PM CORE FEEDER): Fall risks: Gabapentin & tramadol for neuropathy. Gabapentin being taken 600mg qid (computer says tid). Then states that she is taking 1200mg bid. Discussed cutting back on gabapentin/tramadol d/t dizziness & falls but she does not want to decrease. Reviewed fall risks r/t these 2 medications in particular in conjunction w/poor diet/caloric intake. Discussed safety w/rising/ambulation. Need to use walker. And written instructions given to Mrs Trujillo. See media section for scanned copy. Abdominal pain 05/20/2017 08/13/2020 Assessment & Plan (08/14/2019 11:07 AM CORE FEEDER): donnatol refilled by Dr Herrmann's office today (msg in [facility] everywhere) Diverticulitis 05/20/2017 08/13/2020 Dyspepsia 05/20/2017 08/13/2020 Esophageal reflux 05/20/2017 08/13/2020 Gastroparesis 05/20/2017 08/13/2020 Dysuria 10/05/2016 08/13/2020 Overview (11/12/2016): Dysuria Assessment & Plan (08/15/2019 9:25 PM CORE FEEDER): UA showing trace blood & moderate leuks. Neg nitrities today. Has been taking otc urinary pain reliever that has been helping w/the pain. Would like to hold off on abx until appt w/Dr Oliva 08/21/19. To push fluids, change depends frequently. Will continue otc urinary relief medication from [facility]. Do not hold your urine. Urinate as soon as you feel the need to go Drink plenty of water and fluids. Limit alcohol, caffeine, and citrus juices- They will irritate the bladder Wipe front to back & wear cotton underwear Change depends frequently. Urine sent for culture Can add cranberry supplement to acidify the urine Has also been seeing Dr Rivas r/t UTIs. Assessment & Plan (04/25/2019 2:23 PM CDT): NEGATIVE urine dipstick in office today. Will send out culture. Will contact w/results once rec'd. Do not hold your urine. Urinate as soon as you feel the need to go Drink plenty of water and fluids. Limit alcohol, caffeine, and citrus juices- They will irritate the bladder Wipe front to back & wear cotton underwear Try emptying your bladder before and after having sexual intercourse Follow up with your PCP if you are not getting better If you have severe back, flank, or groin pain with nausea/vomiting or are unable to get comfortable from the pain, please go to ER for further treatment Tylenol/Motrin for pain Breast neoplasm screening status 10/05/2016 08/13/2020 Overview (11/12/2016): Encounter for screening mammogram for breast cancer Chronic pain syndrome 08/30/20162020 Upper abdominal pain 08/30/2016 021 Intractable nausea and vomiting 08/30/2016 08/13/2020 Acute diverticulitis 07/22/2016 021 Contusion of multiple sites 05/28/2016 08/13/2020 Overview (11/12/2016): Contusion, multiple sites Dizziness 08/13/2020 Syncope 08/13/2020 Osteomyelitis of right foot (CMS/HCC) 11/03/2021 Encounters Date Type Department Care Team Description 07/24/2025 Telephone [facility] [address] [phone] Jeffrey Pickering MD Medical Question/Miscellaneo us 07/24/2025 Telephone [facility] [address] [phone] Jeffrey Pickering MD 07/24/2025 Telephone [facility] [address] [phone] Jeffrey Pickering MD 07/19/2025 Telephone [facility] [address] [phone] Jeffrey Pickering MD 07/18/2025 Orders Only [facility] [address] [phone] Yenny Murphy NP Recurrent UTI (Primary Dx) 07/18/2025 Orders Only [facility] [address] [phone] Jeffrey Pickering MD Urinary tract infection without hematuria, site unspecified (Primary Dx) 07/17/2025 Results Follow-Up [facility] [address] [phone] Yenny Murphy NP Urinalysis reflex to microscopic and culture 07/17/2025 Telephone [facility] [address] [phone] Yenny Murphy NP Medical Question/Miscellaneo us 07/13/2025 Telephone [facility] [address] [phone] Jeffrey Pickering MD Patient update 07/12/2025 Telephone [facility] [address] [phone] Jeffrey Pickering MD 07/11/2025 Telephone [facility] [address] [phone] Jeffrey Pickering MD 07/10/2025 Telephone [facility] [address] [phone] Jeffrey Pickering MD Medical Question/Miscellaneo us 07/10/2025 Telephone [facility] [address] [phone] Jeffrey Pickering MD Medical Question/Miscellaneo us 07/09/2025 Telephone [facility] [address] [phone] Jeffrey Pickering MD 07/04/2025 Telephone [facility] [address] [phone] Jeffrey Pickering MD 07/04/2025 Orders Only [facility] [address] [phone] Jeffrey Pickering MD 07/04/2025 Results Follow-Up [facility] [address] [phone] Yenny Murphy, GRAPE CUTTER Hemoglobin A1c, TSH, T4, free, Additional followed-up results: 5 07/03/2025 11:30 AM CORE FEEDER Lab [facility] [address] [place] [phone] Controlled type 2 diabetes mellitus without complication, without long-term current use of insulin; Acquired hypothyroidism; Cerebrovascular accident (CVA), unspecified mechanism ([facility]); Type 2 diabetes mellitus with diabetic polyneuropathy, without long-term current use of insulin ([facility]); Hyperlipidemia due to type 2 diabetes mellitus ([facility]) 07/03/2025 11:15 AM CORE FEEDER Lab [facility] [address] [place] [address] Urinary tract infection without hematuria, site unspecified; Hypercalcemia; Weakness 07/03/2025 10:30 AM CORE FEEDER Office Visit [facility] [address] [phone] Jeffrey Pickering MD Urinary tract infection without hematuria, site unspecified (Primary Dx); Hypercalcemia; Weakness; Atherosclerotic heart disease of [place] coronary artery with other forms of angina pectoris; Alzheimer's dementia without behavioral disturbance, psychotic disturbance, mood disturbance, or anxiety, unspecified dementia severity, unspecified timing of dementia onset ([facility]) 07/03/2025 Telephone [facility] [address] [phone] Jeffrey Pickering MD Prior Auth (Ubrelvy) 06/29/2025 Telephone [facility] [address] [phone] Jeffrey Pickering MD Additional Services Or Orders 06/26/2025 Telephone [facility] [address] [phone] Jeffrey Pickering MD Medical Question/Miscellaneo us 06/26/2025 [facility] Post Discharge Follow up phone call [address] [address] Alba Russo RN 06/26/2025 Telephone [facility] [address] [phone] Jeffrey Pickering MD 06/22/2025 Telephone [facility] [address] [phone] Jeffrey Pickering MD Medical Question/Miscellaneo us 06/18/2025 2:29 PM CORE FEEDER - 06/22/2025 6:21 PM CORE FEEDER Hospital Encounter [address] [address] Andres Nguyen MD Saeed, Salman, MD Nikolic, Jelena, MD Altered mental status, unspecified altered mental status type (Primary Dx); Urinary tract infection in female; Weakness; Essential hypertension Discharge Disposition: Discharge to home, home health skilled care 06/18/2025 2:13 PM CORE FEEDER - 06/18/2025 11:59 PM CORE FEEDER Hospital Encounter [facility] Emergency, Room R Discharge Disposition: Discharge to home or self care 06/18/2025 Nurse Triage [facility] [address] [phone] Patricia Ray, RN 05/30/2025 1:00 PM CDT Home Care Visit [address] [place] [address] Selma Simon OT OT OASIS DISCHARGE 05/29/2025 1:30 PM CDT Home Care Visit [address] [place] [address] Selma Simon, OT OT REASSESSMENT 05/25/2025 12:15 PM CDT Home Care Visit [address] [place] [address] Kerrie Man COTA OT HOME VISIT 05/22/2025 3:15 PM CDT Home Care Visit [address] [place] [address] Kerrie Man COTA OT HOME VISIT 05/17/2025 3:00 PM CDT Home Care Visit [address] [place] [address] Kerrie Man COTA OT HOME VISIT 05/17/2025 [facility]phone [facility] [address] [phone] Jeffrey Pickering MD 05/15/2025 3:15 PM CDT Home Care Visit [address] [place] [address] Kerrie Man COTA OT HOME VISIT 05/09/2025 2:30 PM CDT Home Care Visit [address] [place] [address] Jayson Ford, PT PT DISCIPLINE DISCHARGE 05/09/2025 11:30 AM CDT Home Care Visit [address] [place] [address] Selma Simon OT OT HOME VISIT 05/08/2025 1:30 PM CDT Office Visit [facility] [address] [phone] Yenny Murphy, KASIA Medicare annual wellness visit, subsequent (Primary Dx); Major depressive disorder, recurrent episode, moderate (HCC); Mixed hyperlipidemia; Irritable bowel syndrome with both constipation and diarrhea; Cerebrovascular accident (CVA), unspecified mechanism (HCC); Alzheimer's dementia without behavioral disturbance, psychotic disturbance, mood disturbance, or anxiety, unspecified dementia severity, unspecified timing of dementia onset (HCC); Atherosclerotic heart disease of [place] coronary artery with other forms of angina pectoris; Coronary artery disease involving coronary bypass graft of [place] heart without angina pectoris; Spinal stenosis of lumbar region with neurogenic claudication; Seasonal allergic rhinitis due to pollen; Acquired hypothyroidism; Neuropathy; Meniere's disease, unspecified laterality; Insomnia secondary to chronic pain; Essential hypertension; Chronic pain of multiple joints; Class 1 obesity due to excess calories with serious comorbidity and body mass index (BMI) of 30.0 to 30.9 in adult 05/07/2025 11:30 AM CDT Home Care Visit [address] [place] [address] Selma Simon, OT OT REASSESSMENT 05/07/2025 Telephone [facility] [address] [phone] Jeffrey Pickering MD 05/04/2025 11:15 AM CDT Home Care Visit [address] [place] [address] Kerrie Man COTA OT HOME VISIT 05/03/2025 12:00 PM CDT Home Care Visit [address] [place] [address] Jayson Ford, PT PT HOME VISIT 05/02/2025 1:15 PM CDT Home Care Visit [address] [place] [address] Kerrie Man COTA OT HOME VISIT 04/26/2025 2:00 PM CDT Home Care Visit [facility] [address] [facility] [address] [place] [address] Jayson Ford, DAWIT PT HOME VISIT 04/26/2025 11:00 AM CDT Home Care Visit [facility] [address] [facility] [address] [place] [address] Kerrie Man COTA OT HOME VISIT from Last 3 Months Immunizations Immunization Administration Dates Next Due Influenza, Quadrivalent, Hig h Dose, Preservative Free, Intrr 05/18/2023,05/29/2020 Influenza, Quadrivalent, Spl it, Preservative Free, Intramuscular 05/11/2016 Influenza, Split 05/07/2010 Influenza, Trivalent, Cell Culture-based MDCK, Preservative Free, Antibiotic Free, Intramuscular 06/21/2013 Influenza, Trivalent, High D ose, Split, Preservative Free, Intramuscular 05/04/2024,07/18/2019,04/03/2018,07/21 Influenza, Trivalent, IM (MDV) 5,04/16/2015,06/18/2014,06/18,06/02/2011,05/24/2009 Influenza, Trivalent, Preser vative Free, Intramuscular 06/21/2013 Influenza, Unspecified 05/08/2025(Deferr ed: Patient Refused),05/08/2025(Deferred: Patient Refused),04/10/2025(Deferred: Patient Refused),02/03/2023(Deferred: Patient Refused),02/03/2023(Deferred: Patient Refused),08/06/2022(Deferred: Patient Refused),07/01/2022(Deferred: Patient Refused),05/09/2022(Deferred: Patient Refused),04/09/2022(Deferred: Patient Refused),04/09/2022(Deferred: Patient Refused),06/26/2021,04/03/2018, 017,04/16/2015 Pfizer SARS-CoV-2 Monovalent Vaccination (12+ Yrs) PURPLE 06/26/2021 Pneumococcal Conjugate PCV 13 04/03/2018, 018 Pneumococcal Conjugate, Unspecified 04/03/2018 Pneumococcal Polysaccharide PPV23 07/18/2019, Tdap 02/07/2018 Surgical History Surgery Date Site/Laterality Comments KNEE ARTHROPLASTY Knee replacement ROTATOR CUFF REPAIR Rotator cuff repair CHOLECYSTECTOMY Cholecystectomy TOE SURGERY 08/09/2011 - 08/08/2012 toe surgery EYE SURGERY Summer 2017 Bilateral Cateract surgery FLUORO GUIDED ASPIRATION HIP RIGHT 09/27/2019 Right BLADDER SUSPENSION GASTRIC BYPASS OPEN POSTERIOR CERVICAL LAMINECTOMY 05/02/2020 Bilateral C2- T1 Medical History Medical History Date Comments Asthma Asthma Osteoarthritis Osteoarthritis Peptic ulcer Peptic ulcer dis ease Disorder of thyroid Thyroid dise ase Peripheral nerve disease Periphe ral nerve disease Tension headache Headache, tensi on Low back pain Mid back pain Joint pain Chronic pain disorder Extremity pain Neck pain Urinary tract infection recurren t GERD (gastroesophageal reflux disease) Diverticulitis of colon Pituitary gland disorder Bursitis hip DVT, lower extremity ([facility]) Frequent falls Migraine Bone infection Pyelonephritis Neuropathy Vasovagal syncope Urinary incontinence Claustrophobia Meniere disease Osteoporosis Anemia Motion sickness PONV (postoperative nausea and vomiting) Factor 5 Leiden mutation, heterozygous Stroke ([facility]) STEMI (ST elevation myocardial infarction) ([facility]) 02/15/2023 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[facility]) 10/19 Moderate dementia ([facility]) 02/15/2025 Family History Medical History Relation Name Comments Heart disease Daughter 1 No Known Problems Daughter 2 No Known Problems Daughter 3 Heart disease Father Cancer Mother Coronary artery disease Other 1 Fami ly history of Coronary artery disease; Diabetes Other 2 Family history of Diabetes mellitus; Hypertension Other 3 Family history of Hypertension; Osteoporosis Other 4 Family history of Osteoporosis; Kidney disease Other 5 Family histor y of Renal disease; Thyroid disease Other 6 Family histo ry of Thyroid disorder; Other Other 7 Family history of Cancer, kidney; Heart disease Other 8 Family history of Heart disease; Leukemia Sister Relation Name Status Comments Brother Alive Daughter 1 Alive Daughter 2 Alive Daughter 3 Alive Father Mother Other 1 Other 2 Other 3 Other 4 Other 5 Other 6 Other 7 Other 8 Sister (Age 78) Son Alive Social History Tobacco Use Types Packs/Day Years Used Date Smoking Tobacco: Never Smokeless Tobacco: Never Tobacco Cessation:Counseling Given: Not Answered Alcohol Use Standard Drinks/Week Comments No 0 [...] place to sleep or slept in a chcf (including now)? No 10/20/2023 PHQ-9 Answer Date [...] any time in the past 12 m [facility], were you homeless or living in a chcf (including now)? Patient unable to answer 01/02/2025 [...] often do you attend chur ch or synagogue services? Never 07/03/2025 Do you belong to any clubs o r organizations such as advent groups, unions, fraternal or athletic groups, or [...] any time in the past 12 m [facility], were you homeless or living in a chcf (including now)? No 07/03/[address] [facility] Utilities Answer Date Recorded In the past 12 months has th [employer], gas, oil, or water company threatened to [...] on file Legal Sex Female 10:25 AM CORE FEEDER Gender Identity Not on file Sexual Orientation Not on file Last Filed Vital Signs Vital Sign Reading Time Taken Comments Blood Pressure 118/72 07/03/2025 10:38 AM CORE FEEDER Pulse 74 07/03/2025 10:38 AM CORE FEEDER Temperature 36.8 C (98.3 F) 07/03/2025 10:38 AM CORE FEEDER Respiratory Rate 18 07/03/2025 10:38 AM CORE FEEDER Oxygen Saturation 96% 07/03/2025 10:38 AM CORE FEEDER room air Inhaled Oxygen Concentration - - Weight 93.9 kg (207 lb) 07/03/2025 10:38 AM CORE FEEDER Height 170.2 cm (5' 7.01) 07/03/2025 10:[address] Body Mass Index 32.41 07/03/2025 10:38 AM CORE FEEDER Plan of Treatment Health Maintenance Due Date Last Done Comments Hepatitis B Screening 1953 Zoster Vaccine (1 of 2) 1987 Osteoporosis Screening-Bone Density Scan 08/21/2021 08/21/2019 Covid-19 Vaccine (2024-2 6 season) 2025 04/01/2022, 06/26/2021, 10/09/2020, Additional history exists Influenza Vaccine (#1) 2025 , 05/18/2023, 06/26/2021, Additional history exists Well Visit 65+ 05/08/2026 05/08/2025, 04/10, 04/06/2023, Additional history exists Depression Screening 07/03/2026 07/03/2025, 05/08/2025, 01/18/2025, Additional history exists Fall Risk Assessment 07/03/2026 07/03/2025, 06/22/2025, 05/08/2025, Additional history exists Lipid Panel 07/03/2026 07/03/2025, 12/08, 07/24/2024, Additional history exists eGFR 07/03/2026 07/03/2025, 06/10, 06/22/2025, Additional history exists DTaP/Tdap/Td Vaccine (2 - Td or Tdap) 02/08/2028 02/07/2018 Pneumococcal vaccine 65+ Completed 019, 04/03/2018, 04/03/2018, Additional history exists Albumin Creatinine Ratio, Urine Discontinued Foot Exam Discontinued 05/04/2024, 04/01/2022 Hemoglobin A1C Discontinued 07/03/2025, 07/09, 10/20/2023, Additional history exists Dilated Eye Exam Discontinued Goals Goal Patient Goal Type Associated Problems [...] provider. [facility] Improving( 3:56 PM CORE FEEDER) Gwen Gardner, RN Note: Patient will establish a comfort-function goal and identify the pain level that will allow the patient to perform desired activities and achieve an acceptable quality of life. Medical Devices Implanted Type Area Housekeeping/Laundry Device Identifier Shelf Expiration Date Model / Serial / Lot [employer] Angio-Seal Vip 6fr Closere Device [id number] - [id number] Implanted:Qty: 1 on 02/15/2023 by Gino Hanson MD at [facility] Other - see comments [employer] 08/08/2023 [id number] / / [id number] [place] [employer] Synergy Xd Monorail 3mm 12mm 144cm Delivery System 1 Access Port [id number] - [id number] Implanted:Qty: 1 on 02/15/2023 by Gino Hanson MD at [facility] Stent [place] [employer] 03/03/2024 [id number] / / [id number] [place] [employer] Synergy Xd Monorail 2.25mm 12mm 144cm Delivery System 1 Access [id number] - [id number] Implanted:Qty: 1 on 02/15/2023 by Gino Hanson MD at [facility] [employer] [place] [employer] 09/20/2024 [id number] / / [id number] [place] [employer] [id number] [place] 5mm 22mm Polyaxial Spine Occipitocervicothoracic Screw Bone - [id number] Implanted:Qty: 2 on 05/02/2020 by Chinedu Hwang MD at [facility] N/A: Spine Cervical [place] [employer] 7601-05 022 / / [employer] [id number] [place] 3.5mm 18mm Polyaxial Spine Occipitocervicothoracic Screw - [id number] Implanted:Qty: 2 on 05/02/2020 by Chinedu Hwang MD at [facility] N/A: Spine Cervical [employer] 7601-03 518 / / [employer] [id number] Screw Set [place] Spine Occipitocervicothoracic Nonsterile Latex Free - [id number] Implanted:Qty: 12 on 05/02/2020 by Chinedu Hwang MD at [facility] N/A: Spine Cervical [place] [employer] 7601-10 001 / / [place] [employer] [id number] [place] 3.5mm 12mm Polyaxial Spine Occipitocervicothoracic Screw - [id number] Implanted:Qty: 4 on 05/02/2020 by Chinedu Hwang MD at [facility] N/A: Spine Cervical [place] [employer] 7601-03 512 / / [employer] [id number] [place] 3.5mm 12mm Polyaxial Spine Occipitocervicothoracic Medial - [id number] Implanted:Qty: 4 on 05/02/2020 by Chinedu Hwang MD at [facility] N/A: Spine Cervical [employer] 7601-03 [id number] / / [place] [employer] [id number] Luke Contour 100mm 3.5mm Spinal [place] Occipitocervicothoracic Nonsterile Latex Free - [id number] Implanted:Qty: 2 on 05/02/2020 by Chinedu Hwang MD at [facility] N/A: Spine Cervical [employer] [id number] 5100 / / [employer] [id number] [employer] [place] Drill Guide Punch Tap Set Implant Achilles - Sna - [id number] Implanted:Qty: 1 on 10/18/2020 by Ernestina Blum DPM at [facility] [employer] [id number] BC-CP / NA / [email or web address] - Janice .45in 6in Standard Wire Fixation - [id number] Implanted:Qty: 1 on 10/18/2020 by Ernestina Blum DPM at [facility] Surgical [facility] 40- / / Procedures Procedure Name Priority Date/Time Associated Diagnosis Comments URINALYSIS AND REFLEX TO MICROSCOPIC AND CULTURE Routine 07/16/2025 12:45 PM CORE FEEDER EGFR Routine 07/03/2025 11:15 AM CORE FEEDER Type 2 diabetes mellitus with diabetic polyneuropathy, without long-term current use of insulin (HCC) Controlled type 2 diabetes mellitus without complication, without long-term current use of insulin DIFFERENTIAL AUTO Routine 07/03/2025 11:15 AM CORE FEEDER Cerebrovascular accident (CVA), unspecified mechanism (HCC) LIPID PANEL Routine 07/03/2025 11:15 AM CORE FEEDER Hyperlipidemia due to type 2 diabetes mellitus (HCC) COMPREHENSIVE METABOLIC PANEL Routine 07/03/2025 11:15 AM CORE FEEDER Type 2 diabetes mellitus with diabetic polyneuropathy, without long-term current use of insulin (HCC) Controlled type 2 diabetes mellitus without complication, without long-term current use of insulin CBC WITH AUTO DIFFERENTIAL Routine 07/03/2025 11:15 AM CORE FEEDER Cerebrovascular accident (CVA), unspecified mechanism (HCC) T4, FREE Routine 07/03/2025 11:15 AM CORE FEEDER Acquired hypothyroidism TSH Routine 07/03/2025 11:15 AM CORE FEEDER Acquired hypothyroidism HEMOGLOBIN A1C Routine 07/03/2025 11:15 AM CORE FEEDER Controlled type 2 diabetes mellitus without complication, without long-term current use of insulin EGFR Routine 07/03/2025 11:14 AM CORE FEEDER Hypercalcemia URINALYSIS, MICROSCOPIC ONLY Routine 07/03/2025 11:14 AM CORE FEEDER Urinary tract infection without hematuria, site unspecified DIFFERENTIAL AUTO Routine 07/03/2025 11:14 AM CORE FEEDER Hypercalcemia MAGNESIUM Routine 07/03/2025 11:14 AM CORE FEEDER Weakness CBC WITH AUTO DIFFERENTIAL Routine 07/03/2025 11:14 AM CORE FEEDER Hypercalcemia BASIC METABOLIC PANEL Routine 07/03/2025 11:14 AM CORE FEEDER Hypercalcemia URINE CULTURE Routine 07/03/2025 11:14 AM CORE FEEDER URINALYSIS AND REFLEX TO MICROSCOPIC AND CULTURE Routine 07/03/2025 11:14 AM CORE FEEDER Urinary tract infection without hematuria, site unspecified EGFR Routine 06/22/2025 4:25 AM CORE FEEDER PHOSPHORUS Routine 06/22/2025 4:25 AM CORE FEEDER DIFFERENTIAL AUTO Routine 06/22/2025 4:2 5 AM CORE FEEDER COMPREHENSIVE METABOLIC PANEL Routine 06/22/2025 4:25 AM CORE FEEDER CBC WITH AUTO DIFFERENTIAL Routine 06/22/2025 4:25 AM CORE FEEDER POTASSIUM LEVEL Routine 06/21/2025 11:26 AM CORE FEEDER XR ABDOMEN AP 1 VIEW IP Routine 06/21/2025 9:36 AM CORE FEEDER EGFR Routine 06/21/2025 5:27 AM CORE FEEDER PHOSPHORUS Routine 06/21/2025 5:27 AM CORE FEEDER DIFFERENTIAL AUTO Routine 06/21/2025 5:2 7 AM CORE FEEDER COMPREHENSIVE METABOLIC PANEL Routine 06/21/2025 5:27 AM CORE FEEDER CBC WITH AUTO DIFFERENTIAL Routine 06/21/2025 5:27 AM CORE FEEDER EGFR Routine 06/20/2025 3:59 AM CORE FEEDER PHOSPHORUS Routine 06/20/2025 3:59 AM CORE FEEDER COMPREHENSIVE METABOLIC PANEL Routine 06/20/2025 3:59 AM CORE FEEDER EGFR Routine 06/19/2025 1:49 PM CORE FEEDER RENAL FUNCTION PANEL Routine 06/19/2025 1:49 PM CORE FEEDER PTH STAT 06/19/2025 11:00 AM CORE FEEDER EGFR Routine 06/19/2025 2:52 AM CORE FEEDER DIFFERENTIAL AUTO Routine 06/19/2025 2:5 2 AM CORE FEEDER MAGNESIUM Routine 06/19/2025 2:52 AM CORE FEEDER COMPREHENSIVE METABOLIC PANEL Routine 06/19/2025 2:52 AM CORE FEEDER CBC WITH AUTO DIFFERENTIAL Routine 06/19/2025 2:52 AM CORE FEEDER CALCIUM,IONIZED, WHOLE BLOOD Add-On 06/19/2025 12:44 AM CORE FEEDER TROPONIN T HIGH-SENSITIVITY SERIES (BASELINE, 2HR, 4HR, 6HR) Routine 06/19/2025 12:[address] ABDOMEN PELVIS WO CONTRAST ED 06/18/2025 7:24 PM CORE FEEDER URINALYSIS, MICROSCOPIC ONLY STAT 06/18/2025 5:17 PM CORE FEEDER URINE CULTURE STAT 06/18/2025 5:17 PM CORE FEEDER URINALYSIS AND REFLEX TO MICROSCOPIC AND CULTURE STAT 06/18/2025 5:17 PM CORE FEEDER POCT GLUCOSE DEVICE Routine 06/18/2025 3 :[address] HEAD WO CONTRAST ED 06/18/2025 3 :31 PM CORE FEEDER XR CHEST 1 VIEW ED 06/18/2025 3:02 PM CORE FEEDER ECG 12-LEAD STAT 06/18/2025 2:51 PM CORE FEEDER EGFR STAT 06/18/2025 2:50 PM CORE FEEDER DIFFERENTIAL AUTO STAT 06/18/2025 2:5 0 PM CORE FEEDER TROPONIN T HIGH-SENSITIVITY STAT 06/18/2025 2:50 PM CORE FEEDER SEPSIS LACTATE WITH REFLEX STAT 06/18/2025 2:50 PM CORE FEEDER PRO B-TYPE NATRIURETIC PEPTIDE STAT 06/18/2025 2:50 PM CORE FEEDER CBC WITH AUTO DIFFERENTIAL STAT 06/18/2025 2:50 PM CORE FEEDER COMPREHENSIVE METABOLIC PANEL STAT 06/18/2025 2:50 PM CORE FEEDER INFLUENZA A/B, RSV, AND COVID-19 PCR STAT 06/18/2025 2:50 PM CORE FEEDER ALBUMIN CREATININE RATIO, URINE Routine 06/29/2023 7:38 PM CORE FEEDER Controlled type 2 diabetes mellitus with hyperglycemia, without long-term current use of insulin (HCC) DEXA AXIAL SKELETON BONE DENSITY 1 OR MORE SITES Schedule Routine, Read Routine (OP Routine) 08/21/2019 1:26 PM CORE FEEDER Encounter for osteoporosis screening in asymptomatic postmenopausal patient from Last 3 Months or Most Recently Relevant to Health Maintenance Results * (ABNORMAL) Urinalysis reflex to microscopic and culture (07/16/2025 12:45 PM CORE FEEDER) 07/16/2025 12:4 5 PM CORE FEEDER us Historical Provider LAB MICROBIOLOGY - GENERA L ORDERABLES Final Result EXTERNAL LAB * eGFR (07/03/2025 11:15 AM CORE FEEDER) eGFR 65 >=60 mL/min/1. 73 m2 Comment: Interpretive Data Reference Interval Normal >/= 90 mL/min/1.73m2 Mildly decreased* 60 - 89 mL/min/1.73m2 Mildly to moderately decreased 45 - 59 mL/min/1.73m2 Moderately to severely decreased 30 - 44 mL/min/1.73m2 Severely decreased 15 - 29 mL/min/1.73m2 Kidney Failure < 15 mL/min/1.73m2 *Relative to young adult level Estimated glomerular filtration rate is determined by the 2020 CKD-EPI equation recommended by the National Kidney Foundation (A Unifying Approach to GFR Estimation: Recommendations of the NKF-ASK Task Force on Reassessing the Inclusion of Race in Diagnosing Kidney Disease, JASN 2020). The CKD-EPI equation should not be used for patients with unstable renal function and has not been validated in children and those over 70. Current interpretive data was last reviewed 2021. Testing performed by: [address], [address] Blood 07/03/2025 11:1 5 AM CORE FEEDER 07/03/2025 5:50 PM CORE FEEDER us Yenny Murphy NP LAB BLOOD ORDERABLES Final Re sult YASMANI HARRIS ([place]) 1 [facility] [place] [address] * (ABNORMAL) Differential, auto (07/03/2025 11:15 AM CORE FEEDER) Neutrophil abs 6.60(H) 1.50 - 6.50 K/cumm Comment:Testing performed by : [facility], [address] [place] [address], [id number] Imm gran abs 0.03 0.00 - 0.10 K/cumm [facility] ([place]) Comment:Testing performed by : [address], [address] Lymphocyte abs 1.42 0.80 - 3.30 K/cumm [facility] ([place]) Comment:Testing performed by : [facility], [address] [place] [address], [address] Monocyte abs 0.49 0.20 - 0.80 K/cumm [facility] ([place]) Comment:Testing performed by : [address], [address] Eosinophil abs 0.18 0.00 - 0.50 K/cumm [facility] ([place]) Comment:Testing performed by : [address], [address] Basophil abs 0.02 0.00 - 0.10 K/cumm [facility] ([place]) Comment:Testing performed by : [facility] [address] [place] [address]., [address] Neutrophil pct 75.6 % [facility] ([place]) Comment: Interpretive Data Percent cell count reference ranges are not reported, since discordance with absolute values may lead to misinterpretation of CBC data. Current Interpretive Data was last revised on 2017. Testing performed by: [facility], [address] [place] [address]., [address] Imm gran pct 0.3 % [facility] ([place]) Comment: Interpretive Data Percent cell count reference ranges are not reported, since discordance with absolute values may lead to misinterpretation of CBC data. Current Interpretive Data was last revised on 2017. Testing performed by: [facility], [address] [place] [address]., [address] Lymphocyte pct 16.2 % [facility] ([place]) Comment: Interpretive Data Percent cell count reference ranges are not reported, since discordance with absolute values may lead to misinterpretation of CBC data. Current Interpretive Data was last revised on 2017. Testing performed by: [facility], [address] [place] [address]., [address] Monocyte pct 5.6 % [facility] ([place]) Comment: Interpretive Data Percent cell count reference ranges are not reported, since discordance with absolute values may lead to misinterpretation of CBC data. Current Interpretive Data was last revised on 2017. Testing performed by: [facility], [address] [place] [address]., [address] Eosinophil pct 2.1 % [facility] ([place]) Comment: Interpretive Data Percent cell count reference ranges are not reported, since discordance with absolute values may lead to misinterpretation of CBC data. Current Interpretive Data was last revised on 2017. Testing performed by: [facility], [address] [place] [address]., [address] Basophil pct 0.2 % [facility] ([place]) Comment: Interpretive Data Percent cell count reference ranges are not reported, since discordance with absolute values may lead to misinterpretation of CBC data. Current Interpretive Data was last revised on 2017. Testing performed by: [address] [address] Blood 07/03/2025 11:1 5 AM CORE FEEDER 07/03/2025 5:32 PM CORE FEEDER Yenny Murphy NP LAB BLOOD ORDERABLES Final Re sult [facility] ([place]) 1 [facility] Department [place] [address] * (ABNORMAL) CBC with auto differential (07/03/2025 11:15 AM CORE FEEDER) WBC 8.74 3.80 - 9.90 K/cumm Comment:Testing performed by : [facility], [address] [place] [address], [address] Hgb 12.6 11.9 - 15.5 g/dL [facility] ([place]) Comment:Testing performed by : [address], [address] Hct 39.7 35.6 - 45.5 % [facility] ([place]) Comment:Testing performed by : [facility], [address] [place] [address], [address] Plt 315 150 - 400 K/cumm [facility] ([place]) Comment:Testing performed by : [address], [address] MPV 12.4(H) 9.1 - 12.3 fL [facility] ([place]) Comment:Testing performed by : [address], [address] RBC 4.01 3.90 - 5.20 M/cumm [facility] ([place]) Comment:Testing performed by : [address], [address] MCV 99.0(H) 81.3 - 96.4 fL [facility] ([place]) Comment:Testing performed by : [address], [address] MCH 31.4 27.1 - 33.3 pg [facility] ([place]) Comment:Testing performed by : [address], [address] MCHC 31.7(L) 32.3 - 35.7 g/dL [facility] ([place]) Comment:Testing performed by : [facility], [address] [place] [address], [address] RDW CV 13.0 11.1 - 14.9 % [facility] ([place]) Comment:Testing performed by : [facility], [address] [place] [address], [address] RDW SD 46.6 35.7 - 48.1 fL YASMANI HARRIS ([place]) Comment:Testing performed by : [facility], [address] [place] [address], [address] NRBC abs 0.00 0.00 - 0.01 K/cumm YASMANI HARRIS ([place]) Comment:Testing performed by : [facility], [address] [place] [address], [address] Blood 07/03/2025 11:1 5 AM CORE FEEDER 07/03/2025 5:32 PM CORE FEEDER Yenny Murphy GRAPE CUTTER LAB BLOOD ORDERABLES Final Re sult Performing Organization Address City/[facility]/ZIP Co de Phone Number YASMANI HARRIS ([place]) 1 [facility] Department [place] [address] * TSH (07/03/2025 11:15 AM CORE FEEDER) Thyroid Stimulating Hormone 2.23 0.30 - 4.20 mcIUnit/mL Comment:Testing performed by : [facility], [address] [place] [address], [id number] Blood 07/03/2025 11:1 5 AM CORE FEEDER 07/03/2025 5:32 PM CORE FEEDER Yenny Murphy GRAPE CUTTER LAB BLOOD ORDERABLES Final Re sult YASMANI HARRIS ([place]) 1 [facility] [place] [employer] [place] [address] * (ABNORMAL) T4, free (07/03/2025 11:15 AM CORE FEEDER) Free T4 0.87(L) 0.90 - 1.70 ng/dL Comment:Testing performed by : [facility], [address] [place] [address]., [id number] Blood 07/03/2025 11:1 5 AM CORE FEEDER 07/03/2025 5:32 PM CORE FEEDER Yenny Murphy GRAPE CUTTER LAB BLOOD ORDERABLES Final Re sult Performing Organization Address [facility] de Phone Number YASMANI HARRIS ([place]) [address] [place] [address] * Hemoglobin A1c (07/03/2025 11:15 AM CORE FEEDER) Hgb A1C 5.6 4.0 - 5.6 % Comment:Testing performed by : [address] [address] Estimated Average Glucose 114 mg/dL YASMANI HARRIS ([place]) Comment: The ADA recommends reporting an estimated Average Glucose (eAG) with all Hemoglobin A1c results using the equation derived from a study of 507 normal and diabetic adults. Minority populations were underrepresented and children were not included. (Diabetes Care 31:1080-1889, 2008). The eAG is not equivalent to a fasting glucose. Testing performed by: [facility], [address] [place] [address]., [address] Blood 07/03/2025 11:1 5 AM CORE FEEDER 07/03/2025 5:32 PM CORE FEEDER Yenny Murphy NP LAB BLOOD ORDERABLES Final Re sult Performing Organization Address [facility] Co de Phone Number YASMANI HARRIS ([place]) 1 [facility] [place] [employer] [place] [address] * (ABNORMAL) Lipid panel (07/03/2025 11:15 AM CORE FEEDER) Cholesterol 152 30 - 199 mg/dL Comment: Interpretive Data Ages < or = 19 years Acceptable: <170 mg/dL Borderline high: 170-199 mg/dL High: >or= 200 mg/dL Ages > or = 20 years Desirable: <200 mg/dL Borderline high: 200-239 mg/dL High: >or= 240 mg/dL Literature References: 1. Expert Panel on Integrated Guidelines for Cardiovascular Health and Risk Reduction in Children and Adolescents. Pediatrics 2011;128:S213 2. NCEP Expert Panel. Circulation 2004;110:227 Current Interpretive Data was last revised on 2018. Testing performed by: [facility], [address] [place] [address]., [address] Triglycerides 203(H) <=149 mg/dL [facility] ([place]) Comment: Interpretive Data Ages < or = 9 years Acceptable: <75 mg/dL Borderline high: 75-99 mg/dL High: >or= 100 mg/dL Ages 10 to 20 years Acceptable: <90 mg/dL Borderline high: 90-129 mg/dL High: >or= 130 mg/dL Ages > or = 20 years Desirable: <150 mg/dL Borderline high: 150-199 mg/dL High: 200-499 mg/dL Very high: >or= 499 mg/dL Literature References: 1. Expert Panel on Integrated Guidelines for Cardiovascular Health and Risk Reduction in Children and Adolescents. Pediatrics 2011;128:S213 2. NCEP Expert Panel. Circulation 2004;110:227 Current Interpretive Data was last revised on 2018. Testing performed by: [facility], [address] [place] [address]., [address] HDL 43 >=40 mg/dL [facility] ([place]) Comment: Interpretive Data Ages < or = 19 years Acceptable: >45 mg/dL Borderline low: 40-45 mg/dL Low: <40 mg/dL Ages > or = 20 years Desirable: >or= 60 mg/dL Low: <40 mg/dL Literature References: 1. Expert Panel on Integrated Guidelines for Cardiovascular Health and Risk Reduction in Children and Adolescents. Pediatrics 2011;128:S213 2. NCEP Expert Panel. Circulation 2004;110:227 Current Interpretive Data was last revised on 2018. Testing performed by: [facility], [address] [place] [address]., [address] LDL, calculated 75 <=129 mg/dL [facility] ([place]) Comment: Interpretive Data Ages < or = 19 years Acceptable: <110 mg/dL Borderline high: 110-129 mg/dL High: >or= 130 mg/dL Ages > or = 20 years Optimal: <100 mg/dL Near optimal: 100-129 mg/dL Borderline high: 130-159 mg/dL High: >160 mg/dL Calculated using the Ronaldo LDL-C estimating equation. This equation was implemented on 2024. Prior to this date LDL-C was estimated using the Friedewald equation. Literature References: 1. Expert Panel on Integrated Guidelines for Cardiovascular Health and Risk Reduction in Children and Adolescents. Pediatrics 2011;128:S213 2. NCEP Expert Panel. Circulation 2004;110:227 3. Ronaldo Shin et al. LUCIEN Cardiol. 2020 December 07;5(5):540-548. doi: 10.1001/[email or web address] Current Interpretive Data was last revised on 2024. Testing performed by: [address] [address] Non-HDL Cholesterol 109 mg/dL YASMANI HARRIS ([place]) Comment: Interpretive Data Ages < or = 19 years Acceptable: <120 mg/dL Borderline high: 120-144 mg/dL High: >145 mg/dL Ages > or = 20 years When triglycerides are >200 mg/dL, Non-HDL cholesterol is a secondary target of therapy with treatment goals that are 30 mg/dL greater than the LDL cholesterol target. Literature References: 1. Expert Panel on Integrated Guidelines for Cardiovascular Health and Risk Reduction in Children and Adolescents. Pediatrics 2011;128:S213 2. NCEP Expert Panel. Circulation 2004;110:227 Current Interpretive Data was last revised on 2018. Testing performed by: [address] [address] Chol/HDL ratio 4 FRANCISCO HARRIS ([place]) Comment:Testing performed by : [address] [address] Blood 07/03/2025 11:1 5 AM CORE FEEDER 07/03/2025 5:32 PM CORE FEEDER us Yenny Murphy NP LAB BLOOD ORDERABLES Final Re sult YASMANI HARRIS ([place]) 1 [facility] Department [place] [address] * Comprehensive metabolic panel (07/03/2025 11:15 AM CORE FEEDER) Sodium 139 135 - 145 mmol/L Comment:Testing performed by : [facility], [address] [place] [address]., [address] Potassium, pl 4.7 3.3 - 4.9 mmol/L [facility] ([place]) Comment:Testing performed by : [facility], [address] [place] [address]., [address] Chloride 103 97 - 110 mmol/L [facility] ([place]) Comment:Testing performed by : [facility], [address] [place] [address]., [address] CO2 23 22 - 32 mmol/L [facility] ([place]) Comment:Testing performed by : [address], [address] Anion gap 13 2 - 15 mmol/L [facility] ([place]) Comment:Testing performed by : [address] [address] BUN 23 6 - 25 mg/dL [facility] ([place]) Comment:Testing performed by : [address], [address] Creatinine 0.86 0.60 - 1.10 mg/dL [facility] ([place]) Comment:Testing performed by : [address] [address] Glucose 91 70 - 199 mg/dL [facility] ([place]) Comment: Interpretive Data Fasting glucose >/= 126 mg/dl is diagnostic for diabetes. Fasting is defined as no caloric intake for at least 8 hours. Fasting glucose between 100 mg/dl to 125 mg/dl is diagnostic of prediabetes. In a patient with classic symptoms of hyperglycemia or hyperglycemic crisis, a random glucose >/= 200 mg/dl is diagnostic for diabetes. In the absence of unequivocal hyperglycemia, results should be confirmed by repeat testing. The classification and Diagnosis of Diabetes Diabetes Care 202; 46: S19-S40. Current interpretive data was last revised 2022. Testing performed by: [address] [address] Calcium 9.6 8.5 - 10.3 mg/dL [facility] ([place]) Comment:Testing performed by : [address], [address] Bilirubin, total 0.3 0.1 - 1.2 mg/dL [facility] ([place]) Comment:Testing performed by : [facility], [address] [place] [address]., [address] Protein, pl 7.4 6.5 - 8.5 g/dL [facility] ([place]) Comment:Testing performed by : [facility], [address] [place] [address], [address] Albumin 4.0 3.5 - 5.0 g/dL [facility] ([place]) Comment:Testing performed by : [facility], [address] [place] [address], [address] Alk phos 113 40 - 130 Units/L [facility] ([place]) Comment:Testing performed by : [facility], [address] [place] [address], [address] ALT 21 7 - 45 Units/L [facility] ([place]) Comment:Testing performed by : [facility], [address] [place] [address], [address] AST 26 10 - 45 Units/L [facility] ([place]) Comment:Testing performed by : [facility], [address] [place] [address], [address] Blood 07/03/2025 11:1 5 AM CORE FEEDER 07/03/2025 5:32 PM CORE FEEDER Yenny Murphy GRAPE CUTTER LAB BLOOD ORDERABLES Final Re sult [facility] ([place]) 1 [facility] [place] [address] * eGFR (07/03/2025 11:14 AM CORE FEEDER) eGFR 63 >=60 mL/min/1. 73 m2 Comment: Interpretive Data Reference Interval Normal >/= 90 mL/min/1.73m2 Mildly decreased* 60 - 89 mL/min/1.73m2 Mildly to moderately decreased 45 - 59 mL/min/1.73m2 Moderately to severely decreased 30 - 44 mL/min/1.73m2 Severely decreased 15 - 29 mL/min/1.73m2 Kidney Failure < 15 mL/min/1.73m2 *Relative to young adult level Estimated glomerular filtration rate is determined by the 2020 CKD-EPI equation recommended by the National Kidney Foundation (A Unifying Approach to GFR Estimation: Recommendations of the NKF-ASK Task Force on Reassessing the Inclusion of Race in Diagnosing Kidney Disease, JASN 2020). The CKD-EPI equation should not be used for patients with unstable renal function and has not been validated in children and those over 70. Current interpretive data was last reviewed 2021. Testing performed by: [facility], [address] [place] [address], [address] Blood 07/03/2025 11:1 4 AM CORE FEEDER 07/03/2025 5:50 PM CORE FEEDER us Jeffrey Pickering MD LAB BLOOD ORDERABLES Aminata barker Result YASMANI HARRIS ([place]) 1 [facility] [place] [address] * Differential, auto (07/03/2025 11:14 AM CORE FEEDER) Neutrophil abs 6.47 1.50 - 6.50 K/cumm Comment:Testing performed by : [facility], [address] [place] [address]., [address] Imm gran abs 0.02 0.00 - 0.10 K/cumm [facility] ([place]) Comment:Testing performed by : [facility], [address] [place] [address]., [address] Lymphocyte abs 1.46 0.80 - 3.30 K/cumm [facility] ([place]) Comment:Testing performed by : [address], [address] Monocyte abs 0.49 0.20 - 0.80 K/cumm [facility] ([place]) Comment:Testing performed by : [facility], [address] [place] [address]., [address] Eosinophil abs 0.22 0.00 - 0.50 K/cumm [facility] ([place]) Comment:Testing performed by : [address], [address] Basophil abs 0.03 0.00 - 0.10 K/cumm [facility] ([place]) Comment:Testing performed by : [facility], [address] [place] [address]., [address] Neutrophil pct 74.6 % [facility] ([place]) Comment: Interpretive Data Percent cell count reference ranges are not reported, since discordance with absolute values may lead to misinterpretation of CBC data. Current Interpretive Data was last revised on 2017. Testing performed by: [facility], [address] [place] [address]., [address] Imm gran pct 0.2 % [facility] ([place]) Comment: Interpretive Data Percent cell count reference ranges are not reported, since discordance with absolute values may lead to misinterpretation of CBC data. Current Interpretive Data was last revised on 2017. Testing performed by: [facility], [address] [place] [address]., [address] Lymphocyte pct 16.8 % [facility] ([place]) Comment: Interpretive Data Percent cell count reference ranges are not reported, since discordance with absolute values may lead to misinterpretation of CBC data. Current Interpretive Data was last revised on 2017. Testing performed by: [facility], [address] [place] [address]., [address] Monocyte pct 5.6 % [facility] ([place]) Comment: Interpretive Data Percent cell count reference ranges are not reported, since discordance with absolute values may lead to misinterpretation of CBC data. Current Interpretive Data was last revised on 2017. Testing performed by: [facility], [address] [place] [address]., [address] Eosinophil pct 2.5 % [facility] ([place]) Comment: Interpretive Data Percent cell count reference ranges are not reported, since discordance with absolute values may lead to misinterpretation of CBC data. Current Interpretive Data was last revised on 2017. Testing performed by: [address] [address] Basophil pct 0.3 % [facility] ([place]) Comment: Interpretive Data Percent cell count reference ranges are not reported, since discordance with absolute values may lead to misinterpretation of CBC data. Current Interpretive Data was last revised on 2017. Testing performed by: [address] [address] Blood 07/03/2025 11:1 4 AM CORE FEEDER 07/03/2025 5:27 PM CORE FEEDER us Jeffrey Pickering MD LAB BLOOD ORDERABLES Aminata barker Result YASMANI HARRIS ([place]) 1 [facility] [place] [address] * (ABNORMAL) Urinalysis reflex to microscopic and culture Urine (07/03/2025 11:14 AM CORE FEEDER) Color, ur Yellow Yellow Comment:Testing performed by : [address] [address] Clarity, ur Clear Clear YASMANI CACERES ([place]) Comment:Testing performed by : [address], [address] Specific gravity, ur 1.025 1.003 - 1.030 YASMANI HARRIS ([place]) Comment:Testing performed by : [address], [address] pH, urine 6.0 YASMANI HARRIS ([place]) Comment: Interpretive Data U rine pH is affected by diet, medications, systemic acid-base disturbances, and renal tubular function. pH may affect urinary stone formation. For example, urine pH below 6.0 may help reduce the tendency for calcium phosphate stones and pH greater than 6.0 may reduce the tendency for uric acid stone formation. Source: [facility] [employer] Current Interpretive Data was last revised on 2017 Testing performed by: [address] [address] Protein, ur ql Trace Negative CERNE R STEVEN ([place]) Comment:Testing performed by : [address] [address] Glucose, ur ql Negative Negative [facility] ([place]) Comment:Testing performed by : [address] [address] Ketones, ur Negative Negative YASMANI CACERES ([place]) Comment:Testing performed by : [address], [address] Bilirubin, ur Negative Negative YASMANI HARRIS ([place]) Comment:Testing performed by : [facility] [address] [place] [address], [address] Blood, ur Negative Negative YASMANI HARRIS ([place]) Comment:Testing performed by : [address], [address] Urobilinogen, ur <2.0 <2.0 mg/dL YASMANI HARRIS ([place]) Comment:Testing performed by : [address], [address] Nitrite, ur Negative Negative CERNER A ([place]) Comment:Testing performed by : [address], [address] Leukocyte esterase, ur 4+(A) Negative YASMANI HARRIS ([place]) Comment:Testing performed by : [address], [address] UA reflex comment Reflex to microscopic UA will be performed. YASMANI HARRIS ([place]) Comment:Testing performed by : [address], [address] Urine 07/03/2025 11:1 4 AM CORE FEEDER 07/03/2025 5:27 PM CORE FEEDER us Jeffrey Pickering MD LAB MICROBIOLOGY - GENERA L ORDERABLES Final Result YASMANI HARRIS ([place]) 1 [facility] Department [place] [address] * (ABNORMAL) CBC with auto differential (07/03/2025 11:14 AM CORE FEEDER) WBC 8.69 3.80 - 9.90 K/cumm Comment:Testing performed by : [address], [address] Hgb 12.6 11.9 - 15.5 g/dL YASMANI HARRIS ([place]) Comment:Testing performed by : [address], [address] Hct 39.5 35.6 - 45.5 % YASMANI HARRIS ([place]) Comment:Testing performed by : [address], [address] Plt 302 150 - 400 K/cumm [facility] ([place]) Comment:Testing performed by : [facility], [address] [place] [address], [address] MPV 12.4(H) 9.1 - 12.3 fL [facility] ([place]) Comment:Testing performed by : [facility], [address] [place] [address], [address] RBC 3.98 3.90 - 5.20 M/cumm [facility] ([place]) Comment:Testing performed by : [facility], [address] [place] [address], [address] MCV 99.2(H) 81.3 - 96.4 fL [facility] ([place]) Comment:Testing performed by : [address], [address] MCH 31.7 27.1 - 33.3 pg [facility] ([place]) Comment:Testing performed by : [address], [address] MCHC 31.9(L) 32.3 - 35.7 g/dL [facility] ([place]) Comment:Testing performed by : [address], [address] RDW CV 13.1 11.1 - 14.9 % [facility] ([place]) Comment:Testing performed by : [address], [address] RDW SD 47.4 35.7 - 48.1 fL [facility] ([place]) Comment:Testing performed by : [address], [address] NRBC abs 0.00 0.00 - 0.01 K/cumm [facility] ([place]) Comment:Testing performed by : [address], [address] Blood 07/03/2025 11:1 4 AM CORE FEEDER 07/03/2025 5:27 PM CORE FEEDER us Jeffrey Pickering MD LAB BLOOD ORDERABLES Aminata jm Result [facility] ([place]) 1 [facility] Department [place] [address] * (ABNORMAL) Urinalysis, microscopic only (07/03/2025 11:14 AM CORE FEEDER) WBC, ur 11-20(A) 0 - 5 /HPF Comment:Testing performed by : [facility], [address] [place] [address]., [address] RBC, ur 3-5(A) 0 - 2 /HPF YASMANI HARRIS ([place]) Comment:Testing performed by : [facility], [address] [place] [address], [address] Epithelial cells, squamous, ur 11-20(A) 0 - 5 /HPF YASMANI HARRIS ([place]) Comment:Testing performed by : [facility], [address] [place] [address], [address] Other crystals, ur Trace(A) YASMANI HARRIS ([place]) Comment:Testing performed by : [facility], [address] [place] [address], [address] Hyaline casts, ur 1-5 0 - 10 /LPF YASMANI HARRIS ([place]) Comment:Testing performed by : [facility], [address] [place] [address], [address] Culture Reflex Comment Reflex to urine culture will be performed. YASMANI HARRIS ([place]) Comment:Testing performed by : [facility], [address] [place] [address], [id number] Urine 07/03/2025 11:1 4 AM CORE FEEDER 07/03/2025 5:27 PM CORE FEEDER Jeffrey Pickering MD LAB URINE ORDERABLES Aminata l Result YASMANI HARRIS ([place]) 1 [facility] Department [place] [address] * Urine culture Urine (07/03/2025 11:14 AM CORE FEEDER) Report Final Report: Growth indicative of contamination with periurethral eliza. Please submit a new specimen with special attention given to the collection process and to prompt transport to the laboratory. Comment:Testing performed by : [facility], [address] [place]., [address] Organism GROWTH INDICATES CONTAM WITH PERIURETHRAL ELIZA. YASMANI HARRIS ([place]) Urine 07/03/2025 11:1 4 AM CORE FEEDER 07/03/2025 8:57 PM CORE FEEDER Narrative YASMANI HARRIS ([place]) - 07/05/2025 2:10 PM CORE FEEDER Urine culture reflexed based upon urinalysis results. Testing performed by [facility] Microbiology Laboratory ([phone]) Jeffrey Pickering MD LAB MICROBIOLOGY - GENERA L ORDERABLES Final Result Performing Organization Address City/[facility] Co de Phone Number YASMANI [facility] ([place]) 1 [facility] [place] [address] * (ABNORMAL) Magnesium (07/03/2025 11:14 AM CORE FEEDER) Pathologist [facility] Magnesium 1.3(L) 1.4 - 2.5 mg/dL Comment:Testing performed by : [address], [address] Blood 07/03/2025 11:1 4 AM CORE FEEDER 07/03/2025 5:27 PM CORE FEEDER Jeffrey Pickering MD LAB BLOOD ORDERABLES Aminata l Result Performing Organization Address [facility] Co de Phone Number YASMANI HARRIS ([place]) [address] [place] [address] * Basic metabolic panel (07/03/2025 11:14 AM CORE FEEDER) Sodium 140 135 - 145 mmol/L Comment:Testing performed by : [address] [address] Potassium, pl 4.8 3.3 - 4.9 mmol/L YASMANI HARRIS ([place]) Comment:Testing performed by : [address] [address] Chloride 104 97 - 110 mmol/L YASMANI HARRIS ([place]) Comment:Testing performed by : [address], [address] CO2 25 22 - 32 mmol/L YASMANI HARRIS ([place]) Comment:Testing performed by : [address] [address] Anion gap 11 2 - 15 mmol/L [facility] ([place]) Comment:Testing performed by : [address] [address] BUN 24 6 - 25 mg/dL [facility] ([place]) Comment:Testing performed by : [address], [address] Creatinine 0.88 0.60 - 1.10 mg/dL [facility] ([place]) Comment:Testing performed by : [facility], [address] [place] [address], [address] Glucose 92 70 - 199 mg/dL YASMANI HARRIS ([place]) Comment: Interpretive Data Fasting glucose >/= 126 mg/dl is diagnostic for diabetes. Fasting is defined as no caloric intake for at least 8 hours. Fasting glucose between 100 mg/dl to 125 mg/dl is diagnostic of prediabetes. In a patient with classic symptoms of hyperglycemia or hyperglycemic crisis, a random glucose >/= 200 mg/dl is diagnostic for diabetes. In the absence of unequivocal hyperglycemia, results should be confirmed by repeat testing. The classification and Diagnosis of Diabetes Diabetes Care 2021; 46: S19-S40. Current interpretive data was last revised 2022. Testing performed by: [address] [address] Calcium 9.6 8.5 - 10.3 mg/dL YASMANI HARRIS ([place]) Comment:Testing performed by : [address], [address] Blood 07/03/2025 11:1 4 AM CORE FEEDER 07/03/2025 5:27 PM CORE FEEDER us Jeffrey Pickering MD LAB BLOOD ORDERABLES Aminata barker Result YASMANI HARRIS ([place]) 1 [facility] Department [place] [address] * eGFR (06/22/2025 4:25 AM CORE FEEDER) eGFR 64 >=60 mL/min/1. 73 m2 Comment: Interpretive Data Reference Interval Normal >/= 90 mL/min/1.73m2 Mildly decreased* 60 - 89 mL/min/1.73m2 Mildly to moderately decreased 45 - 59 mL/min/1.73m2 Moderately to severely decreased 30 - 44 mL/min/1.73m2 Severely decreased 15 - 29 mL/min/1.73m2 Kidney Failure < 15 mL/min/1.73m2 *Relative to young adult level Estimated glomerular filtration rate is determined by the 2020 CKD-EPI equation recommended by the National Kidney Foundation (A Unifying Approach to GFR Estimation: Recommendations of the NKF-ASK Task Force on Reassessing the Inclusion of Race in Diagnosing Kidney Disease, JASN 2020). The CKD-EPI equation should not be used for patients with unstable renal function and has not been validated in children and those over 70. Current interpretive data was last reviewed 2021. Blood 06/22/2025 4:25 AM CORE FEEDER 06/22/2025 4:32 AM CORE FEEDER us Evaristo Travis MD LAB BLOOD ORDERABLES Fi nal Result [facility] ([place]) 1 [facility] Department [place] [address] * (ABNORMAL) Differential, auto (06/22/2025 4:25 AM CORE FEEDER) Neutrophil abs 5.86 1.50 - 6.50 K/cumm Imm gran abs 0.02 0.00 - 0.10 K/cumm [facility] ([place]) Lymphocyte abs 1.37 0.80 - 3.30 K/cumm [facility] ([place]) Monocyte abs 0.84(H) 0.20 - 0.80 K/cumm [facility] ([place]) Eosinophil abs 0.19 0.00 - 0.50 K/cumm [facility] ([place]) Basophil abs 0.03 0.00 - 0.10 K/cumm [facility] ([place]) Neutrophil pct 70.5 % [facility] ([place]) Comment: Interpretive Data Percent cell count reference ranges are not reported, since discordance with absolute values may lead to misinterpretation of CBC data. Current Interpretive Data was last revised on 2017. Imm gran pct 0.2 % [facility] ([place]) Comment: Interpretive Data Percent cell count reference ranges are not reported, since discordance with absolute values may lead to misinterpretation of CBC data. Current Interpretive Data was last revised on 2017. Lymphocyte pct 16.5 % [facility] ([place]) Comment: Interpretive Data Percent cell count reference ranges are not reported, since discordance with absolute values may lead to misinterpretation of CBC data. Current Interpretive Data was last revised on 2017. Monocyte pct 10.1 % [facility] ([place]) Comment: Interpretive Data Percent cell count reference ranges are not reported, since discordance with absolute values may lead to misinterpretation of CBC data. Current Interpretive Data was last revised on 2017. Eosinophil pct 2.3 % [facility] ([place]) Comment: Interpretive Data Percent cell count reference ranges are not reported, since discordance with absolute values may lead to misinterpretation of CBC data. Current Interpretive Data was last revised on 2017. Basophil pct 0.4 % [facility] ([place]) Comment: Interpretive Data Percent cell count reference ranges are not reported, since discordance with absolute values may lead to misinterpretation of CBC data. Current Interpretive Data was last revised on 2017. Blood 06/22/2025 4:25 AM CORE FEEDER 06/22/2025 4:32 AM CORE FEEDER us Evaristo Travis MD LAB BLOOD ORDERABLES Fi nal Result YASMANI HARRIS ([place]) 1 [facility] Department [place] [address] * (ABNORMAL) CBC with auto differential (06/22/2025 4:25 AM CORE FEEDER) WBC 8.31 3.80 - 9.90 K/cumm Hgb 11.5(L) 11.9 - 15.5 g/dL [facility] ([place]) Hct 35.6 35.6 - 45.5 % [facility] ([place]) Plt 167 150 - 400 K/cumm [facility] ([place]) MPV 11.7 9.1 - 12.3 fL [facility] RBC 3.64(L) 3.90 - 5.20 M/cumm [facility] ([place]) MCV 97.8(H) 81.3 - 96.4 fL [facility] ([place]) MCH 31.6 27.1 - 33.3 pg [facility] MCHC 32.3 32.3 - 35.7 g/dL [facility] ([place]) RDW CV 13.2 11.1 - 14.9 % [facility] RDW SD 47.8 35.7 - 48.1 fL [facility] ([place] NRBC abs 0.00 0.00 - 0.01 K/cumm [facility] ([place]) Blood 06/22/2025 4:25 AM CORE FEEDER 06/22/2025 4:32 AM CORE FEEDER Evaristo Travis MD LAB BLOOD ORDERABLES Fi nal Result YASMANI HARRIS ([place]) 1 [facility] [address] [place], [place] [address] * (ABNORMAL) Phosphorus (06/22/2025 4:25 AM CORE FEEDER) Pathologist [facility] Phosphorus, pl 2.0(L) 2.3 - 4.5 mg/dL Blood 06/22/2025 4:25 AM CORE FEEDER 06/22/2025 4:32 AM CORE FEEDER Evaristo Travis MD LAB BLOOD ORDERABLES Fi nal Result YASMANI HARRIS ([place]) 1 [facility] [place] [address] * (ABNORMAL) Comprehensive metabolic panel (06/22/2025 4:25 AM CORE FEEDER) Sodium 133(L) 135 - 145 mmol/L Potassium, pl 3.8 3.3 - 4.9 mmol/L [facility] ([place]) Chloride 101 97 - 110 mmol/L [facility] ([place]) CO2 20(L) 22 - 32 mmol/L [facility] ([place]) Anion gap 12 2 - 15 mmol/L [facility] ([place]) BUN 42(H) 6 - 25 mg/dL [facility] ([place]) Creatinine 0.87 0.60 - 1.10 mg/dL [facility] ([place]) Glucose 88 70 - 199 mg/dL [facility] ([place]) Comment: Interpretive Data Fasting glucose >/= 126 mg/dl is diagnostic for diabetes. Fasting is defined as no caloric intake for at least 8 hours. Fasting glucose between 100 mg/dl to 125 mg/dl is diagnostic of prediabetes. In a patient with classic symptoms of hyperglycemia or hyperglycemic crisis, a random glucose >/= 200 mg/dl is diagnostic for diabetes. In the absence of unequivocal hyperglycemia, results should be confirmed by repeat testing. The classification and Diagnosis of Diabetes Diabetes Care 2021; 46: S19-S40. Current interpretive data was last revised 2022. Calcium 9.7 8.5 - 10.3 mg/dL [facility] ([place]) Bilirubin, total 0.6 0.1 - 1.2 mg/dL [facility] ([place]) Protein, pl 6.8 6.5 - 8.5 g/dL [facility] ([place]) Albumin 3.7 3.5 - 5.0 g/dL [facility] ([place]) Alk phos 91 40 - 130 Units/L [facility] ([place]) ALT 18 7 - 45 Units/L [facility] ([place]) AST 25 10 - 45 Units/L [facility] ([place]) Blood 06/22/2025 4:25 AM CORE FEEDER 06/22/2025 4:32 AM CORE FEEDER us Evaristo Travis MD LAB BLOOD ORDERABLES Fi nal Result [facility] ([place]) 1 [facility] [place] [address] * Potassium (06/21/2025 11:26 AM CORE FEEDER) Potassium, pl 3.9 3.3 - 4.9 mmol/L Blood 06/21/2025 11:2 6 AM CORE FEEDER 06/21/2025 11:46 AM CORE FEEDER us Real Wyatt MD LAB BLOOD ORDERABLES Final Re sult YASMANI HARRIS [place]) 1 [facility] [place] [address] * XR Abdomen 1 View AP (06/21/2025 9:36 AM CORE FEEDER) Anatomical Region Laterality Modality Body, Abdomen N/A Computed Radiogr aphy 06/21/2025 9:57 AM CORE FEEDER Impressions 06/21/2025 9:57 AM CORE FEEDER Nonobstructive bowel gas pattern. Multiple postoperative surgical clips. Please correlate with past surgical history. Electronically signed by: Haydee Tian M.D. Narrative 06/21/2025 9:57 AM CORE FEEDER EXAMINATION: XR ABDOMEN AP 1 VIEW HISTORY: abdominal pain TECHNIQUE: Supine KUB COMPARISON: Abdomen pelvis CT from 06/18/2025 FINDINGS: No bowel obstruction. No dilated bowel . Scattered gas within nondistended large and small bowel. Single surgical clip in the right lower quadrant likely related to prior appendectomy in the appropriate clinical setting. Likely tubal ligation clips in the pelvis. Surgical clips throughout the left upper abdomen possibly related to prior gastric surgery. Again, please correlate with past history. No acute osseous abnormality evident. Procedure Note Haydee Tian MD - 06/21/2025 EXAMINATION: XR ABDOMEN AP 1 VIEW HISTORY: abdominal pain TECHNIQUE: Supine KUB COMPARISON: Abdomen pelvis CT from 06/18/2025 FINDINGS: No bowel obstruction. No dilated bowel . Scattered gas within nondistended large and small bowel. Single surgical clip in the right lower quadrant likely related to prior appendectomy in the appropriate clinical setting. Likely tubal ligation clips in the pelvis. Surgical clips throughout the left upper abdomen possibly related to prior gastric surgery. Again, please correlate with past history. No acute osseous abnormality evident. IMPRESSION: Nonobstructive bowel gas pattern. Multiple postoperative surgical clips. Please correlate with past surgical history. Electronically signed by: Haydee Tian M.D. us Genet Hector MD IMG XR PROCEDURES Final Result * (ABNORMAL) eGFR (06/21/2025 5:27 AM CORE FEEDER) eGFR 49(L) >=60 mL/min/1. 73 m2 Comment: Interpretive Data Reference Interval Normal >/= 90 mL/min/1.73m2 Mildly decreased* 60 - 89 mL/min/1.73m2 Mildly to moderately decreased 45 - 59 mL/min/1.73m2 Moderately to severely decreased 30 - 44 mL/min/1.73m2 Severely decreased 15 - 29 mL/min/1.73m2 Kidney Failure < 15 mL/min/1.73m2 *Relative to young adult level Estimated glomerular filtration rate is determined by the 2020 CKD-EPI equation recommended by the National Kidney Foundation (A Unifying Approach to GFR Estimation: Recommendations of the NKF-ASK Task Force on Reassessing the Inclusion of Race in Diagnosing Kidney Disease, JASN 2020). The CKD-EPI equation should not be used for patients with unstable renal function and has not been validated in children and those over 70. Current interpretive data was last reviewed 2021. Blood 06/21/2025 5:27 AM CORE FEEDER 06/21/2025 5:53 AM CORE FEEDER us Evaristo Travis MD LAB BLOOD ORDERABLES Fi nal Result [facility] ([place]) 1 [facility] Department of Laboratories [place], [place] [id number] * (ABNORMAL) Differential, auto (06/21/2025 5:27 AM CORE FEEDER) Neutrophil abs 8.58(H) 1.50 - 6.50 K/cumm Imm gran abs 0.03 0.00 - 0.10 K/cumm [facility] ([place]) Lymphocyte abs 1.66 0.80 - 3.30 K/cumm [facility] Monocyte abs 0.97(H) 0.20 - 0.80 K/cumm [facility] ([place]) Eosinophil abs 0.15 0.00 - 0.50 K/cumm [facility] ([place]) Basophil abs 0.03 0.00 - 0.10 K/cumm [facility] ([place]) Neutrophil pct 75.1 % [facility] ([place]) Comment: Interpretive Data Percent cell count reference ranges are not reported, since discordance with absolute values may lead to misinterpretation of CBC data. Current Interpretive Data was last revised on 2017. Imm gran pct 0.3 % [facility] ([place]) Comment: Interpretive Data Percent cell count reference ranges are not reported, since discordance with absolute values may lead to misinterpretation of CBC data. Current Interpretive Data was last revised on 2017. Lymphocyte pct 14.5 % [facility] ([place]) Comment: Interpretive Data Percent cell count reference ranges are not reported, since discordance with absolute values may lead to misinterpretation of CBC data. Current Interpretive Data was last revised on 2017. Monocyte pct 8.5 % [facility] ([place]) Comment: Interpretive Data Percent cell count reference ranges are not reported, since discordance with absolute values may lead to misinterpretation of CBC data. Current Interpretive Data was last revised on 2017. Eosinophil pct 1.3 % [facility] ([place]) Comment: Interpretive Data Percent cell count reference ranges are not reported, since discordance with absolute values may lead to misinterpretation of CBC data. Current Interpretive Data was last revised on 2017. Basophil pct 0.3 % [facility] ([place]) Comment: Interpretive Data Percent cell count reference ranges are not reported, since discordance with absolute values may lead to misinterpretation of CBC data. Current Interpretive Data was last revised on 2017. Blood 06/21/2025 5:27 AM CORE FEEDER 06/21/2025 5:53 AM CORE FEEDER us Evaristo Travis MD LAB BLOOD ORDERABLES Fi nal Result YASMANI [facility] ([place]) 1 [facility] [place] [address] * (ABNORMAL) CBC with auto differential (06/21/2025 5:27 AM CORE FEEDER) WBC 11.42(H) 3.80 - 9.90 K/cumm Hgb 12.0 11.9 - 15.5 g/dL [facility] ([place]) Hct 36.1 35.6 - 45.5 % [facility] ([place]) Plt 226 150 - 400 K/cumm [facility] ([place]) MPV 11.4 9.1 - 12.3 fL [facility] ([place]) RBC 3.75(L) 3.90 - 5.20 M/cumm [facility] ([place]) MCV 96.3 81.3 - 96.4 fL [facility] ([place]) MCH 32.0 27.1 - 33.3 pg [facility] ([place]) MCHC 33.2 32.3 - 35.7 g/dL [facility] ([place]) RDW CV 13.3 11.1 - 14.9 % [facility] ([place]) RDW SD 47.0 35.7 - 48.1 fL [facility] ([place]) NRBC abs 0.00 0.00 - 0.01 K/cumm [facility] ([place]) Blood 06/21/2025 5:27 AM CORE FEEDER 06/21/2025 5:53 AM CORE FEEDER Evaristo Travis MD LAB BLOOD ORDERABLES Fi nal Result [facility] 1 [facility] [place] [address] * Phosphorus (06/21/2025 5:27 AM CORE FEEDER) Phosphorus, pl 2.4 2.3 - 4.5 mg/dL Blood 06/21/2025 5:27 AM CORE FEEDER 06/21/2025 5:53 AM CORE FEEDER Evaristo Travis MD LAB BLOOD ORDERABLES Fi nal Result [facility] ([place]) 1 [facility] [place] [address] * (ABNORMAL) Comprehensive metabolic panel (06/21/2025 5:27 AM CORE FEEDER) Sodium 141 135 - 145 mmol/L Potassium, pl 3.2(L) 3.3 - 4.9 mmol/L [facility] ([place]) Chloride 105 97 - 110 mmol/L [facility] ([place]) CO2 24 22 - 32 mmol/L [facility] ([place]) Anion gap 12 2 - 15 mmol/L [facility] ([place]) BUN 43(H) 6 - 25 mg/dL [facility] ([place]) Creatinine 1.08 0.60 - 1.10 mg/dL [facility] ([place]) Glucose 84 70 - 199 mg/dL [facility] ([place]) Comment: Interpretive Data Fasting glucose >/= 126 mg/dl is diagnostic for diabetes. Fasting is defined as no caloric intake for at least 8 hours. Fasting glucose between 100 mg/dl to 125 mg/dl is diagnostic of prediabetes. In a patient with classic symptoms of hyperglycemia or hyperglycemic crisis, a random glucose >/= 200 mg/dl is diagnostic for diabetes. In the absence of unequivocal hyperglycemia, results should be confirmed by repeat testing. The classification and Diagnosis of Diabetes Diabetes Care 2021; 46: S19-S40. Current interpretive data was last revised 2022. Calcium 9.9 8.5 - 10.3 mg/dL [facility] ([place]) Bilirubin, total 0.4 0.1 - 1.2 mg/dL [facility] ([place]) Protein, pl 6.7 6.5 - 8.5 g/dL [facility] ([place]) Albumin 3.9 3.5 - 5.0 g/dL [facility] ([place]) Alk phos 91 40 - 130 Units/L [facility] ([place]) ALT 20 7 - 45 Units/L [facility] ([place]) AST 26 10 - 45 Units/L [facility] ([place]) Blood 06/21/2025 5:27 AM CORE FEEDER 06/21/2025 5:53 AM CORE FEEDER Evaristo Travis MD LAB BLOOD ORDERABLES Fi nal Result Y[facility]I HARRIS [place]) 1 [facility] [place] [address] * eGFR (06/20/2025 3:59 AM CORE FEEDER) eGFR 62 >=60 mL/min/1. 73 m2 Comment: Interpretive Data Reference Interval Normal >/= 90 mL/min/1.73m2 Mildly decreased* 60 - 89 mL/min/1.73m2 Mildly to moderately decreased 45 - 59 mL/min/1.73m2 Moderately to severely decreased 30 - 44 mL/min/1.73m2 Severely decreased 15 - 29 mL/min/1.73m2 Kidney Failure < 15 mL/min/1.73m2 *Relative to young adult level Estimated glomerular filtration rate is determined by the 2020 CKD-EPI equation recommended by the National Kidney Foundation (A Unifying Approach to GFR Estimation: Recommendations of the NKF-ASK Task Force on Reassessing the Inclusion of Race in Diagnosing Kidney Disease, JASN 2020). The CKD-EPI equation should not be used for patients with unstable renal function and has not been validated in children and those over 70. Current interpretive data was last reviewed 2021. Blood 06/20/2025 3:59 AM CORE FEEDER 06/20/2025 4:31 AM CORE FEEDER Evaristo Travis MD LAB BLOOD ORDERABLES Fi nal Result YASMANI HARRIS [place]) 1 [facility] [place] [address] * Phosphorus (06/20/2025 3:59 AM CORE FEEDER) Phosphorus, pl 2.7 2.3 - 4.5 mg/dL Blood 06/20/2025 3:59 AM CORE FEEDER 06/20/2025 4:31 AM CORE FEEDER Evaristo Travis MD LAB BLOOD ORDERABLES Fi nal Result [facility] ([place]) 1 [facility] [place] [address] * (ABNORMAL) Comprehensive metabolic panel (06/20/2025 3:59 AM CORE FEEDER) Sodium 140 135 - 145 mmol/L Potassium, pl 3.4 3.3 - 4.9 mmol/L [facility] ([place]) Chloride 104 97 - 110 mmol/L [facility] ([place]) CO2 22 22 - 32 mmol/L [facility] ([place]) Anion gap 14 2 - 15 mmol/L [facility] ([place]) BUN 28(H) 6 - 25 mg/dL [facility] ([place]) Creatinine 0.89 0.60 - 1.10 mg/dL [facility] ([place]) Glucose 120 70 - 199 mg/dL [facility] ([place]) Comment: Interpretive Data Fasting glucose >/= 126 mg/dl is diagnostic for diabetes. Fasting is defined as no caloric intake for at least 8 hours. Fasting glucose between 100 mg/dl to 125 mg/dl is diagnostic of prediabetes. In a patient with classic symptoms of hyperglycemia or hyperglycemic crisis, a random glucose >/= 200 mg/dl is diagnostic for diabetes. In the absence of unequivocal hyperglycemia, results should be confirmed by repeat testing. The classification and Diagnosis of Diabetes Diabetes Care 2021; 46: S19-S40. Current interpretive data was last revised 2022. Calcium 10.0 8.5 - 10.3 mg/dL [facility] ([place]) Bilirubin, total 0.5 0.1 - 1.2 mg/dL [facility] ([place]) Protein, pl 7.0 6.5 - 8.5 g/dL [facility] ([place]) Albumin 4.2 3.5 - 5.0 g/dL [facility] ([place]) Alk phos 101 40 - 130 Units/L [facility] ([place] ALT 22 7 - 45 Units/L [facility] ([place]) AST 31 10 - 45 Units/L [facility] ([place]) Blood 06/20/2025 3:59 AM CORE FEEDER 06/20/2025 4:31 AM CORE FEEDER us Evaristo Travis MD LAB BLOOD ORDERABLES Fi nal Result Performing Organization Address City/[facility]/ZIP Co de Phone Number YASMANI HARRIS ([place]) 1 [facility] [place] [address] * eGFR (06/19/2025 1:49 PM CORE FEEDER) eGFR 65 >=60 mL/min/1. 73 m2 Comment: Interpretive Data Reference Interval Normal >/= 90 mL/min/1.73m2 Mildly decreased* 60 - 89 mL/min/1.73m2 Mildly to moderately decreased 45 - 59 mL/min/1.73m2 Moderately to severely decreased 30 - 44 mL/min/1.73m2 Severely decreased 15 - 29 mL/min/1.73m2 Kidney Failure < 15 mL/min/1.73m2 *Relative to young adult level Estimated glomerular filtration rate is determined by the 2020 CKD-EPI equation recommended by the National Kidney Foundation (A Unifying Approach to GFR Estimation: Recommendations of the NKF-ASK Task Force on Reassessing the Inclusion of Race in Diagnosing Kidney Disease, JASN 2020). The CKD-EPI equation should not be used for patients with unstable renal function and has not been validated in children and those over 70. Current interpretive data was last reviewed 2021. Blood 06/19/2025 1:49 PM CORE FEEDER 06/19/2025 2:23 PM CORE FEEDER us Real Wyatt MD LAB BLOOD ORDERABLES Final Re sult YASMANI HARRIS ([place]) 1 [facility] [place] [address] * (ABNORMAL) Renal function panel (06/19/2025 1:49 PM CORE FEEDER) Sodium 141 135 - 145 mmol/L Potassium, pl 3.5 3.3 - 4.9 mmol/L [facility] ([place]) Chloride 105 97 - 110 mmol/L [facility] ([place]) CO2 21(L) 22 - 32 mmol/L [facility] ([place]) Anion gap 15 2 - 15 mmol/L [facility] ([place]) BUN 27(H) 6 - 25 mg/dL [facility] ([place]) Creatinine 0.86 0.60 - 1.10 mg/dL [facility] ([place]) Glucose 109 70 - 199 mg/dL [facility] ([place]) Comment: Interpretive Data Fasting glucose >/= 126 mg/dl is diagnostic for diabetes. Fasting is defined as no caloric intake for at least 8 hours. Fasting glucose between 100 mg/dl to 125 mg/dl is diagnostic of prediabetes. In a patient with classic symptoms of hyperglycemia or hyperglycemic crisis, a random glucose >/= 200 mg/dl is diagnostic for diabetes. In the absence of unequivocal hyperglycemia, results should be confirmed by repeat testing. The classification and Diagnosis of Diabetes Diabetes Care 202; 46: S19-S40. Current interpretive data was last revised 2022. Calcium 10.7(H) 8.5 - 10.3 mg/dL [facility] ([place]) Phosphorus, pl 3.1 2.3 - 4.5 mg/dL [facility] ([place]) Albumin 4.4 3.5 - 5.0 g/dL [facility] ([place]) Blood 06/19/2025 1:49 PM CORE FEEDER 06/19/2025 2:23 PM CORE FEEDER Real Wyatt MD LAB BLOOD ORDERABLES Final Re sult Performing Organization Address City/[facility] Co de Phone Number [facility] ([place]) 1 [facility] [place] [address] * (ABNORMAL) PTH (06/19/2025 11:00 AM CORE FEEDER) PTH 122(H) 18 - 59 pg/mL Blood 06/19/2025 11:0 0 AM CORE FEEDER 06/19/2025 11:27 AM CORE FEEDER Real Wyatt MD LAB BLOOD ORDERABLES Final Re sult Performing Organization Address City/[facility]/ZIP Co de Phone Number YASMANI [facility] ([place]) 1 [facility] Department [place] [address] * eGFR (06/19/2025 2:52 AM CORE FEEDER) Pathologist [facility] eGFR 72 >=60 mL/min/1. 73 m2 Comment: Interpretive Data Reference Interval Normal >/= 90 mL/min/1.73m2 Mildly decreased* 60 - 89 mL/min/1.73m2 Mildly to moderately decreased 45 - 59 mL/min/1.73m2 Moderately to severely decreased 30 - 44 mL/min/1.73m2 Severely decreased 15 - 29 mL/min/1.73m2 Kidney Failure < 15 mL/min/1.73m2 *Relative to young adult level Estimated glomerular filtration rate is determined by the 2020 CKD-EPI equation recommended by the National Kidney Foundation (A Unifying Approach to GFR Estimation: Recommendations of the NKF-ASK Task Force on Reassessing the Inclusion of Race in Diagnosing Kidney Disease, JASN 2020). The CKD-EPI equation should not be used for patients with unstable renal function and has not been validated in children and those over 70. Current interpretive data was last reviewed 2021. Blood 06/19/2025 2:52 AM CORE FEEDER 06/19/2025 4:44 AM CORE FEEDER us Evaristo Travis MD LAB BLOOD ORDERABLES Fi nal Result [facility] ([place]) 1 [facility] Department [place] [address] * (ABNORMAL) Differential, auto (06/19/2025 2:52 AM CORE FEEDER) Pathologist [facility] Neutrophil abs 6.26 1.50 - 6.50 K/cumm Imm gran abs 0.01 0.00 - 0.10 K/cumm [facility] ([place]) Lymphocyte abs 1.85 0.80 - 3.30 K/cumm [facility] ([place]) Monocyte abs 1.00(H) 0.20 - 0.80 K/cumm [facility] ([place]) Eosinophil abs 0.04 0.00 - 0.50 K/cumm [facility] ([place]) Basophil abs 0.03 0.00 - 0.10 K/cumm [facility] ([place]) Neutrophil pct 68.2 % [facility] ([place]) Comment: Interpretive Data Percent cell count reference ranges are not reported, since discordance with absolute values may lead to misinterpretation of CBC data. Current Interpretive Data was last revised on 2017. Imm gran pct 0.1 % [facility] ([place]) Comment: Interpretive Data Percent cell count reference ranges are not reported, since discordance with absolute values may lead to misinterpretation of CBC data. Current Interpretive Data was last revised on 2017. Lymphocyte pct 20.1 % [facility] ([place]) Comment: Interpretive Data Percent cell count reference ranges are not reported, since discordance with absolute values may lead to misinterpretation of CBC data. Current Interpretive Data was last revised on 2017. Monocyte pct 10.9 % [facility] ([place]) Comment: Interpretive Data Percent cell count reference ranges are not reported, since discordance with absolute values may lead to misinterpretation of CBC data. Current Interpretive Data was last revised on 2017. Eosinophil pct 0.4 % [facility] ([place]) Comment: Interpretive Data Percent cell count reference ranges are not reported, since discordance with absolute values may lead to misinterpretation of CBC data. Current Interpretive Data was last revised on 2017. Basophil pct 0.3 % [facility] ([place]) Comment: Interpretive Data Percent cell count reference ranges are not reported, since discordance with absolute values may lead to misinterpretation of CBC data. Current Interpretive Data was last revised on 2017. Blood 06/19/2025 2:52 AM CORE FEEDER 06/19/2025 4:44 AM CORE FEEDER us Evaristo Travis MD LAB BLOOD ORDERABLES Fi nal Result YASMANI STEVEN ([place]) 1 [facility] Department [place] [address] * (ABNORMAL) CBC with auto differential (06/19/2025 2:52 AM CORE FEEDER) WBC 9.19 3.80 - 9.90 K/cumm Hgb 12.3 11.9 - 15.5 g/dL [facility] ([place]) Hct 36.4 35.6 - 45.5 % [facility] ([place]) Plt 283 150 - 400 K/cumm [facility] ([place]) MPV 11.9 9.1 - 12.3 fL [facility] ([place]) RBC 3.88(L) 3.90 - 5.20 M/cumm [facility] ([place]) MCV 93.8 81.3 - 96.4 fL [facility] ([place]) MCH 31.7 27.1 - 33.3 pg [facility] ([place]) MCHC 33.8 32.3 - 35.7 g/dL [facility] ([place]) RDW CV 13.2 11.1 - 14.9 % [facility] ([place]) RDW SD 45.3 35.7 - 48.1 fL [facility] ([place]) NRBC abs 0.00 0.00 - 0.01 K/cumm [facility] ([place]) Blood 06/19/2025 2:52 AM CORE FEEDER 06/19/2025 4:44 AM CORE FEEDER Evaristo Travis MD LAB BLOOD ORDERABLES Fi nal Result Performing Organization Address City/[facility] Co de Phone Number YASMANI HARRIS ([place]) 1 [facility] [employer] [place] [address] * Magnesium (06/19/2025 2:52 AM CORE FEEDER) Magnesium 1.5 1.4 - 2.5 mg/dL Blood 06/19/2025 2:52 AM CORE FEEDER 06/19/2025 4:44 AM CORE FEEDER Evaristo Travis MD LAB BLOOD ORDERABLES Fi nal Result YASMANI HARRIS ([place]) 1 [facility] [employer] [place] [address] * (ABNORMAL) Comprehensive metabolic panel (06/19/2025 2:52 AM CORE FEEDER) Sodium 141 135 - 145 mmol/L Potassium, pl 3.3 3.3 - 4.9 mmol/L [facility] ([place]) Chloride 104 97 - 110 mmol/L [facility] ([place]) CO2 22 22 - 32 mmol/L [facility] ([place]) Anion gap 15 2 - 15 mmol/L [facility] ([place]) BUN 25 6 - 25 mg/dL [facility] ([place]) Creatinine 0.79 0.60 - 1.10 mg/dL [facility] ([place]) Glucose 81 70 - 199 mg/dL [facility] ([place]) Comment: Interpretive Data Fasting glucose >/= 126 mg/dl is diagnostic for diabetes. Fasting is defined as no caloric intake for at least 8 hours. Fasting glucose between 100 mg/dl to 125 mg/dl is diagnostic of prediabetes. In a patient with classic symptoms of hyperglycemia or hyperglycemic crisis, a random glucose >/= 200 mg/dl is diagnostic for diabetes. In the absence of unequivocal hyperglycemia, results should be confirmed by repeat testing. The classification and Diagnosis of Diabetes Diabetes Care 202; 46: S19-S40. Current interpretive data was last revised 2022. Calcium 10.8(H) 8.5 - 10.3 mg/dL [facility] ([place]) Bilirubin, total 0.7 0.1 - 1.2 mg/dL [facility] ([place]) Protein, pl 7.4 6.5 - 8.5 g/dL [facility] ([place]) Albumin 4.3 3.5 - 5.0 g/dL [facility] ([place]) Alk phos 98 40 - 130 Units/L [facility] ([place]) ALT 24 7 - 45 Units/L [facility] ([place]) AST 39 10 - 45 Units/L [facility] ([place]) Blood 06/19/2025 2:52 AM CORE FEEDER 06/19/2025 4:44 AM CORE FEEDER us Evaristo Travis MD LAB BLOOD ORDERABLES Fi nal Result [facility] ([place]) 1 [facility] [place] [address] * (ABNORMAL) Troponin T high-sensitivity series (baseline, 2hr, 4hr, 6hr) (06/19/2025 12:44 AM CORE FEEDER) Trop T hs 18(H) <=14 ng/L Comment: Interpretive Data For further hscTnT resources including the diagnostic algorithm and an aid in interpretation, copy and paste this link: https://nrl.testcatalog.org/show/hsTrop Current Interpretive Data last revised 2020. Blood 06/19/2025 12:4 4 AM CORE FEEDER 06/19/2025 1:01 AM CORE FEEDER Evaristo Travis MD LAB BLOOD ORDERABLES Fi nal Result Performing Organization Address City/[facility]/ZIP Co de Phone Number [facility] ([place]) 1 [facility] [place] [address] * (ABNORMAL) Calcium, ionized, whole blood (06/19/2025 12:44 AM CORE FEEDER) Ca, ionized, bld 5.22(H) 4.50 - 5.10 mg/dL Blood 06/19/2025 12:4 4 AM CORE FEEDER 06/19/2025 1:01 AM CORE FEEDER Evaristo Travis MD LAB BLOOD ORDERABLES Fi nal Result [facility] ([place]) 1 [facility] [place] [employer] [address] * CT Abdomen Pelvis WO Contrast (06/18/2025 7:24 PM CORE FEEDER) Anatomical Region Laterality Modality Body N/A Computed Tomogra phy 06/18/2025 8:45 PM CORE FEEDER Impressions 06/18/2025 8:45 PM CORE FEEDER 1. No acute inflammatory change of the abdomen or pelvis. No bowel obstruction or inflammatory change of bowel. 2. Innumerable diverticuli throughout the entire colon. No acute diverticulitis. 3. Post surgical change without complication. Electronically signed by: Bandar Gilman M.D. Narrative 06/18/2025 8:45 PM CORE FEEDER EXAMINATION: CT ABDOMEN PELVIS WO CONTRAST ORDERING HEALTHCARE PROVIDER: ANDRES NGUYEN HISTORY: Abdominal pain, acute, nonlocalized. TECHNIQUE: CT abdomen and pelvis without contrast . Reconstructed coronal and sagittal MPR images reviewed. All images stored on PACS. Automated exposure control was used as a dose optimization technique for this examination. COMPARISON: Prior exam 01/01/2025 and 10/19/2023 FINDINGS: The sensitivity for detection of visceral lesions is diminished without the use of intravenous contrast. LOWER CHEST: Limited view through the lung base demonstrates dependent atelectasis. There is mild cardiomegaly. No pericardial effusion. LIVER: The liver demonstrates a normal appearance given limitations without IV contrast. GALLBLADDER: Absent. BILIARY: No intrahepatic or extrahepatic ductal dilatation. SPLEEN: Normal length. No focal lesions. PANCREAS: No identified cystic or solid masses. No significant calcifications. No adjacent inflammation or peripancreatic fluid collections. Pancreatic duct is not dilated. Atrophy. ADRENALS: No discrete nodules. KIDNEYS/URINARY TRACT: There is a small low-density lesion of the posterior aspect of the right kidney measuring 6 Hounsfield units indicative of a cyst. Kidneys otherwise appear normal. No nephrolithiasis or hydronephrosis. Bladder is unremarkable. GI: Innumerable diverticuli are seen of the sigmoid colon and descending colon and are also seen in the transverse and ascending colon diffusely. No acute diverticulitis. There is no acute inflammatory change. No inflammatory change is seen about the expected appendix. The appendix itself was not well seen as a distinct structure. There are some likely surgical changes favoring prior appendectomy. Correlate clinically. Again seen is surgical change about the stomach with no acute findings or inflammatory change. PERITONEUM: No free intraperitoneal air or ascites. RETROPERITONEUM:No mass or adenopathy REPRODUCTIVE:No significant abnormality. No suspicious adnexal mass. VASCULATURE: There is atherosclerotic change of the abdominal aorta and branches. Mild ectasia. MUSCULOSKELETAL: Moderate spondylosis thoracic spine. Mild of the lumbar spine. Grade 1 anterolisthesis L4 on L5 as was previously seen. Mild osteoarthritis of the hips. Artifact from tubal ligation clips. OTHER: No other acute findings. Procedure Note Bandar Gilman MD - 06/18/2025 EXAMINATION: CT ABDOMEN PELVIS WO CONTRAST ORDERING HEALTHCARE PROVIDER: ANDRES NGUYEN HISTORY: Abdominal pain, acute, nonlocalized. TECHNIQUE: CT abdomen and pelvis without contrast . Reconstructed coronal and sagittal MPR images reviewed. All images stored on PACS. Automated exposure control was used as a dose optimization technique for this examination. COMPARISON: Prior exam 01/01/2025 and 10/19/2023 FINDINGS: The sensitivity for detection of visceral lesions is diminished without the use of intravenous contrast. LOWER CHEST: Limited view through the lung base demonstrates dependent atelectasis. There is mild cardiomegaly. No pericardial effusion. LIVER: The liver demonstrates a normal appearance given limitations without IV contrast. GALLBLADDER: Absent. BILIARY: No intrahepatic or extrahepatic ductal dilatation. SPLEEN: Normal length. No focal lesions. PANCREAS: No identified cystic or solid masses. No significant calcifications. No adjacent inflammation or peripancreatic fluid collections. Pancreatic duct is not dilated. Atrophy. ADRENALS: No discrete nodules. KIDNEYS/URINARY TRACT: There is a small low-density lesion of the posterior aspect of the right kidney measuring 6 Hounsfield units indicative of a cyst. Kidneys otherwise appear normal. No nephrolithiasis or hydronephrosis. Bladder is unremarkable. GI: Innumerable diverticuli are seen of the sigmoid colon and descending colon and are also seen in the transverse and ascending colon diffusely. No acute diverticulitis. There is no acute inflammatory change. No inflammatory change is seen about the expected appendix. The appendix itself was not well seen as a distinct structure. There are some likely surgical changes favoring prior appendectomy. Correlate clinically. Again seen is surgical change about the stomach with no acute findings or inflammatory change. PERITONEUM: No free intraperitoneal air or ascites. RETROPERITONEUM:No mass or adenopathy REPRODUCTIVE:No significant abnormality. No suspicious adnexal mass. VASCULATURE: There is atherosclerotic change of the abdominal aorta and branches. Mild ectasia. MUSCULOSKELETAL: Moderate spondylosis thoracic spine. Mild of the lumbar spine. Grade 1 anterolisthesis L4 on L5 as was previously seen. Mild osteoarthritis of the hips. Artifact from tubal ligation clips. OTHER: No other acute findings. IMPRESSION: 1. No acute inflammatory change of the abdomen or pelvis. No bowel obstruction or inflammatory change of bowel. 2. Innumerable diverticuli throughout the entire colon. No acute diverticulitis. 3. Post surgical change without complication. Electronically signed by: Bandar Gilman M.D. Andres Nguyen MD IMG CT PROCEDURES Final Resu lt * (ABNORMAL) Urinalysis reflex to microscopic and culture Urine (06/18/2025 5:17 PM CORE FEEDER) Color, ur Yellow Yellow Clarity, ur Turbid(A) Clear [facility] ([place]) Specific gravity, ur 1.024 1.003 - 1.030 [facility] ([place]) pH, urine 6.0 [facility] ([place]) Comment: Interpretive Data U rine pH is affected by diet, medications, systemic acid-base disturbances, and renal tubular function. pH may affect urinary stone formation. For example, urine pH below 6.0 may help reduce the tendency for calcium phosphate stones and pH greater than 6.0 may reduce the tendency for uric acid stone formation. Source: [place] Current Interpretive Data was last revised on 2017 Protein, ur ql 1+(A) Negative [facility] ([place]) Glucose, ur ql Negative Negative [facility] ([place]) Ketones, ur Trace Negative [facility] ([place]) Bilirubin, ur Negative Negative [facility] ([place]) Blood, ur Trace(A) Negative [facility] ([place]) Urobilinogen, ur 2.0(A) <2.0 mg/dL [facility] ([place]) Nitrite, ur Negative Negative [facility] ([place]) Leukocyte esterase, ur 3+(A) Negative [facility] ([place]) UA reflex comment Reflex to microscopic UA will be performed. [facility] ([place]) Urine 06/18/2025 5:17 PM CORE FEEDER 06/18/2025 5:20 PM CORE FEEDER Andres Nguyen MD LAB MICROBIOLOGY - GENERAL O RDERABLES Final Result YASMANI [facility] ([place]) 1 [facility] Department [place] [address] * (ABNORMAL) Urinalysis, microscopic only (06/18/2025 5:17 PM CORE FEEDER) WBC, ur >50(A) 0 - 5 /HPF RBC, ur 11-20(A) 0 - 2 /HPF [facility] ([place]) Bacteria, ur 4+(A) [facility] ([place]) Mucous, ur Present(A) [facility] A ([place]) Hyaline casts, ur 1-5 0 - 10 /LPF [facility] ([place]) Culture Reflex Comment Reflex to urine culture will be performed. [facility] ([place]) Urine 06/18/2025 5:17 PM CORE FEEDER 06/18/2025 5:20 PM CORE FEEDER Andres Nguyen MD LAB URINE ORDERABLES Final R esult YASMANI [facility] ([place]) 1 [facility] [place] [address] * (ABNORMAL) Urine culture Urine (06/18/2025 5:17 PM CORE FEEDER) Report Final Report: Greater than or equal to 100,000 colonies/mL of Escherichia coli Plus growth of clinically insignificant bacterial eliza. (.) Comment:Testing performed by : [facility], 1 [facility] [place] [address] Organism ESCHERICHIA COLI [facility]ER [facility] ([place]) Organism PLUS GROWTH OF CLINICALLY INSIGNIFICANT ELIZA. JAMALNER [facility] ([place]) Urine 06/18/2025 5:17 PM CORE FEEDER 06/18/2025 8:19 PM CORE FEEDER Narrative [facility] ([place] - 06/20/2025 10:38 AM CORE FEEDER Urine culture reflexed based upon urinalysis results. Testing performed by [facility] Microbiology Laboratory ([phone]) Organism Antibiotic Method Susceptibility Escherichia coli Ampicillin INTERPRETATION Susceptible Escherichia coli Cefazolin INTERPRETATION Susceptible Escherichia coli Nitrofurantoin INTERPRETATION Susceptible Escherichia coli Gentamicin INTERPRETATION Susceptible Escherichia coli Trimethoprim with Sulfamethoxazole IN TERPRETATION Susceptible Escherichia coli Meropenem INTERPRETATION Susceptible Escherichia coli Cefepime INTERPRETATION Susceptible Escherichia coli Ciprofloxacin INTERPRETATION Susceptible Escherichia coli Ceftazidime INTERPRETATION Susceptible Escherichia coli Ceftriaxone INTERPRETATION Susceptible Escherichia coli Piperacillin/Tazobactam INTERPRETATIO N Susceptible Escherichia coli Cephalexin INTERPRETATION Susceptible Escherichia coli Cefuroxime-axetil INTERPRETATION Susceptible Escherichia coli Cefdinir INTERPRETATION Susceptible Andres Nguyen MD LAB MICROBIOLOGY - GENERAL O RDERABLES Final Result Performing Organization Address City/[facility] Co de Phone Number [facility] ([place]) 1 [facility] [place] [place] [address] * POCT glucose (06/18/2025 3:50 PM CORE FEEDER) Glucose, POC 102 70 - 199 mg/dL Blood 06/18/2025 3:50 PM CORE FEEDER 06/18/2025 3:50 PM CORE FEEDER Andres Nguyen MD LAB POCT ORDERABLES - DEVICE Final Result Performing Organization Address [facility] de Phone Number [facility] ([place]) 1 [facility] [place] [place] [address] * CT Head WO Contrast (06/18/2025 3:31 PM CORE FEEDER) Anatomical Region Laterality Modality Head and Neck N/A Computed Tomogra phy 06/18/2025 4:14 PM CORE FEEDER Impressions 06/18/2025 4:14 PM CORE FEEDER 1. No acute intracranial hemorrhage or midline shift. 2. Chronic infarction, chronic microvascular ischemic-type white matter changes and other findings as above. Electronically signed by: Isiah Shearer D.O. Narrative 06/18/2025 4:14 PM CORE FEEDER EXAM DESCRIPTION:CT HEAD WO CONTRAST REASON FOR STUDY: . Mental status change, unknown cause TECHNIQUE: Axial images acquired through the brain without intravenous contrast. Images stored on PACS. Automated exposure control was used as a dose optimization technique for this examination. COMPARISON:CT head without contrast dated 01/02/2025, 02/19/2024 and 10/19/2023. MRI brain dated 01/03/2025 and 10/20/2023. FINDINGS: No acute intracranial hemorrhage or midline shift. The size and configuration of ventricles and sulci are similar when compared to the previous examinations. The basilar cisterns are maintained. Chronic infarction additional frontal horn left lateral ventricle with ex vacuo enlargement left lateral ventricle is again seen. Elsewhere in the brain the subcortical and periventricular white matter T2/FLAIR hyperintense signal in the bilateral cerebral hemispheres is nonspecific but compatible with chronic microvascular ischemic-type change in a patient this age. Bilateral cataract eye surgeries. Mucosal thickening in the bilateral ethmoid air cells. This routine whole brain CT head is not optimization of the temporal bones. As imaged the bilateral mastoid air cells are predominantly clear. The middle ears are grossly clear. By history patient has earaches. The need for further evaluation with dedicated temporal bone CT and/or contrast enhanced IAC protocol MRI as clinically indicated. There are vascular calcifications. No depressed calvarial fracture. The left occipital calvarial lucency (series 3, image 14) is nonspecific but present on the earliest available CT head dated 03/19/2009. Procedure Note Isiah Shearer, DO - 06/18/2025 EXAM DESCRIPTION:CT HEAD WO CONTRAST REASON FOR STUDY: . Mental status change, unknown cause TECHNIQUE: Axial images acquired through the brain without intravenous contrast. Images stored on PACS. Automated exposure control was used as a dose optimization technique for this examination. COMPARISON:CT head without contrast dated 01/02/2025, 02/19/2024 and 10/19/2023. MRI brain dated 01/03/2025 and 10/20/2023. FINDINGS: No acute intracranial hemorrhage or midline shift. The size and configuration of ventricles and sulci are similar when compared to the previous examinations. The basilar cisterns are maintained. Chronic infarction additional frontal horn left lateral ventricle with ex vacuo enlargement left lateral ventricle is again seen. Elsewhere in the brain the subcortical and periventricular white matter T2/FLAIR hyperintense signal in the bilateral cerebral hemispheres is nonspecific but compatible with chronic microvascular ischemic-type change in a patient this age. Bilateral cataract eye surgeries. Mucosal thickening in the bilateral ethmoid air cells. This routine whole brain CT head is not optimization of the temporal bones. As imaged the bilateral mastoid air cells are predominantly clear. The middle ears are grossly clear. By history patient has earaches. The need for further evaluation with dedicated temporal bone CT and/or contrast enhanced IAC protocol MRI as clinically indicated. There are vascular calcifications. No depressed calvarial fracture. The left occipital calvarial lucency (series 3, image 14) is nonspecific but present on the earliest available CT head dated 03/19/2009. IMPRESSION: 1. No acute intracranial hemorrhage or midline shift. 2. Chronic infarction, chronic microvascular ischemic-type white matter changes and other findings as above. Electronically signed by: Isiah Shearer D.O. Andres Nguyen MD IMG CT PROCEDURES Final Resu lt * XR Chest 1 Vw Portable (06/18/2025 3:02 PM CORE FEEDER) Anatomical Region Laterality Modality Body, Chest N/A Computed Radiogr aphy 06/18/2025 3:59 PM CORE FEEDER Impressions 06/18/2025 3:59 PM CORE FEEDER Interstitial prominence in the lungs, similar to the prior examination. Subtle opacities in the bases favored to represent atelectasis. Consider pneumonia in the appropriate clinical setting Electronically signed by: Emily Templeton M.D. Narrative 06/18/2025 3:59 PM CORE FEEDER EXAMINATION: XR CHEST 1 VIEW HISTORY: History of gastroesophageal reflux, asthma and recurrent urinary tract infection. Confusion TECHNIQUE: AP portable upright COMPARISON: 11/03/2023. FINDINGS: There is mild interstitial prominence demonstrated within the lungs. Subtle opacities are present in the bases. No effusion or pneumothorax. Cardiac silhouette is borderline enlarged likely magnified by technique. Pulmonary vascularity within normal limits. Atherosclerotic calcification of the aorta. Partial visualization of the cervical fusion hardware. Osteoarthritis within the shoulders. Thoracic spondylosis. Procedure Note Emily Templeton MD - 06/18/2025 EXAMINATION: XR CHEST 1 VIEW HISTORY: History of gastroesophageal reflux, asthma and recurrent urinary tract infection. Confusion TECHNIQUE: AP portable upright COMPARISON: 11/03/2023. FINDINGS: There is mild interstitial prominence demonstrated within the lungs. Subtle opacities are present in the bases. No effusion or pneumothorax. Cardiac silhouette is borderline enlarged likely magnified by technique. Pulmonary vascularity within normal limits. Atherosclerotic calcification of the aorta. Partial visualization of the cervical fusion hardware. Osteoarthritis within the shoulders. Thoracic spondylosis. IMPRESSION: Interstitial prominence in the lungs, similar to the prior examination. Subtle opacities in the bases favored to represent atelectasis. Consider pneumonia in the appropriate clinical setting Electronically signed by: Emily Templeton M.D. Andres Nguyen MD IMG XR PROCEDURES Final Resu lt * ECG 12 lead (06/18/2025 2:51 PM CORE FEEDER) 06/18/2025 2:51 PM CORE FEEDER Narrative [facility] - 06/19/2025 1:37 PM CORE FEEDER Vent Rate: 68 bpm RR Interval: 881 msec [place] Interval: 0 msec QRS Duration: 98 msec QT Interval: 399 msec QTC Interval: 416 msec P-R-T [place]: [id number] - 4 - 41 degrees IMPRESSION: PROBABLE SINUS RHYTHM SIGNIFICANT BASELINE ARTIFACT NO SIGNIFICANT CHANGE Electronically Signed By: Caro Palafox MD Andres Nguyen MD ECG ORDERABLES Final Result Performing Organization Address City/[facility] Co de Phone Number [facility] * (ABNORMAL) Troponin T high-sensitivity (06/18/2025 2:50 PM CORE FEEDER) Pathologist [facility] Trop T hs 18(H) <=14 ng/L Comment: Interpretive Data For further hscTnT resources including the diagnostic algorithm and an aid in interpretation, copy and paste this link: [email or web address].testcatalog.org/[email or web address] Current Interpretive Data last revised 2020. Blood 06/18/2025 2:50 PM CORE FEEDER 06/18/2025 2:56 PM CORE FEEDER Andres Nguyen MD LAB BLOOD ORDERABLES Final R esult Performing Organization Address City/[facility]/ZIP Co de Phone Number [facility] ([place]) 1 [facility] Department [place] [address] * Influenza A/B, RSV, and COVID-19 PCR Nasopharyngeal (06/18/2025 2:50 PM CORE FEEDER) Pathologist [facility] COVID-19 RNA Negative Negative Influenza A RNA Negative Negative [facility] ([place]) Influenza B RNA Negative Negative [facility] ([place]) RSV RNA Negative Negative [facility] ([place]) Comment: Interpretive data: Testing performed by [facility]. This test is performed using the Medivo Xpert Xpress CoV-2/Flu/RSV plus assay. This is a multiplex, real- time reverse transcriptase PCR assay intended for the qualitative detection of nucleic acid from SARS-CoV-2, influenza A, influenza B, and respiratory syncytial virus. This assay has been cleared by the [place] Food and Drug administration. The performance characteristics have been verified by the [facility]. Results must be considered in the clinical context, and a negative result does not rule out infection. Interpretive Data last revised 2023 Nasopharyngeal 06/18/2025 2: 50 PM CORE FEEDER 06/18/2025 2:56 PM CORE FEEDER Narrative [facility] ([place]) - 06/18/2025 3:39 PM CORE FEEDER Is the Patient experiencing symptoms consistent with COVID?->Unknown Andres Nguyen MD LAB MICROBIOLOGY - GENERAL O RDERABLES Final Result Performing Organization Address City/[facility]/ZIP Co de Phone Number [facility] ([place]) 1 [facility] [place] [address] * Sepsis Lactate w/ Reflex (06/18/2025 2:50 PM CORE FEEDER) [facility] Sepsis Lactate 1.9 0.7 - 2.0 mmol/L Blood 06/18/2025 2:50 PM CORE FEEDER 06/18/2025 2:56 PM CORE FEEDER Andres Nguyen MD LAB BLOOD ORDERABLES Final R esult [facility] ([place]) [address] [place] [address] * eGFR (06/18/2025 2:50 PM CORE FEEDER) [facility] eGFR 73 >=60 mL/min/1. 73 m2 Comment: Interpretive Data Reference Interval Normal >/= 90 mL/min/1.73m2 Mildly decreased* 60 - 89 mL/min/1.73m2 Mildly to moderately decreased 45 - 59 mL/min/1.73m2 Moderately to severely decreased 30 - 44 mL/min/1.73m2 Severely decreased 15 - 29 mL/min/1.73m2 Kidney Failure < 15 mL/min/1.73m2 *Relative to young adult level Estimated glomerular filtration rate is determined by the 2020 CKD-EPI equation recommended by the National Kidney Foundation (A Unifying Approach to GFR Estimation: Recommendations of the NKF-ASK Task Force on Reassessing the Inclusion of Race in Diagnosing Kidney Disease, JASN 2020). The CKD-EPI equation should not be used for patients with unstable renal function and has not been validated in children and those over 70. Current interpretive data was last reviewed 2021. Blood 06/18/2025 2:50 PM CORE FEEDER 06/18/2025 2:56 PM CORE FEEDER us Andres Nguyen MD LAB BLOOD ORDERABLES Final R esult [facility] ([place]) 1 [facility] Department [place] [address] * Differential, auto (06/18/2025 2:50 PM CORE FEEDER) Neutrophil abs 5.56 1.50 - 6.50 K/cumm Imm gran abs 0.02 0.00 - 0.10 K/cumm [facility] ([place]) Lymphocyte abs 1.60 0.80 - 3.30 K/cumm [facility] ([place]) Monocyte abs 0.79 0.20 - 0.80 K/cumm [facility] ([place]) Eosinophil abs 0.03 0.00 - 0.50 K/cumm [facility] ([place]) Basophil abs 0.01 0.00 - 0.10 K/cumm [facility] ([place]) Neutrophil pct 69.4 % [facility] ([place]) Comment: Interpretive Data Percent cell count reference ranges are not reported, since discordance with absolute values may lead to misinterpretation of CBC data. Current Interpretive Data was last revised on 2017. Imm gran pct 0.2 % [facility] ([place]) Comment: Interpretive Data Percent cell count reference ranges are not reported, since discordance with absolute values may lead to misinterpretation of CBC data. Current Interpretive Data was last revised on 2017. Lymphocyte pct 20.0 % [facility] ([place]) Comment: Interpretive Data Percent cell count reference ranges are not reported, since discordance with absolute values may lead to misinterpretation of CBC data. Current Interpretive Data was last revised on 2017. Monocyte pct 9.9 % [facility] ([place]) Comment: Interpretive Data Percent cell count reference ranges are not reported, since discordance with absolute values may lead to misinterpretation of CBC data. Current Interpretive Data was last revised on 2017. Eosinophil pct 0.4 % [facility] ([place]) Comment: Interpretive Data Percent cell count reference ranges are not reported, since discordance with absolute values may lead to misinterpretation of CBC data. Current Interpretive Data was last revised on 2017. Basophil pct 0.1 % [facility] ([place]) Comment: Interpretive Data Percent cell count reference ranges are not reported, since discordance with absolute values may lead to misinterpretation of CBC data. Current Interpretive Data was last revised on 2017. Blood 06/18/2025 2:50 PM CORE FEEDER 06/18/2025 2:56 PM CORE FEEDER Andres Nguyen MD LAB BLOOD ORDERABLES Final R esult [facility] ([place]) 1 [facility] Department [place] [address] * (ABNORMAL) Pro B-type natriuretic peptide (06/18/2025 2:50 PM CORE FEEDER) NT-proBNP 1,650(H) <=450 pg/mL Comment: Interpretive Comments: A. Dyspnea in Acute Care Setting All Ages: < 300 pg/ml, acute heart failure unlikely. < 50 yrs: 300 - 450 pg/ml, further investigation warranted. > 450 pg/ml, acute heart failure likely. 50 - 74 yrs: 300 - 900 pg/ml, further investigation warranted. > 900 pg/ml, acute heart failure likely . > or = 75 yrs: 450 - 1800 pg/ml, further investigation warranted. > 1800 pg/ml, acute heart failure likely. B. Non-acute Setting < 75 yrs < 125 pg/ml, rules out heart failure. > or = 125 pg/ml, further investigation warranted. > or = 75 yrs < 450 pg/ml, rules out heart failure. > or = 450 pg/ml, further investigation warranted. - Knowledge of each individual patient's NT-proBNP range may be more useful than using similar cut-points for every patient. Please note that marked elevations in NT-proBNP levels may be observed in state other than Left Ventricular Congestive Failure, including: acute coronary syndromes, right heart strain/failure (including pulmonary embolism and cor pulmonale), critical illness, renal failure, as well as advanced age. - References: 1. Treva TREVIÑO et.al. Eur Heart J. 2006:27:330-337. 2. José RW, Paulina ZAMUDIO. J. AM Jl Cardiol: Cardiovasc Imag. 2009;2: 216- 225. Interpretive Data Last Revised Date: 2018. Blood 06/18/2025 2:50 PM CORE FEEDER 06/18/2025 2:56 PM CORE FEEDER us Andres Nguyen MD LAB BLOOD ORDERABLES Final R esult [facility] ([place]) 1 [facility] Department [place] [address] * CBC with auto differential (06/18/2025 2:50 PM CORE FEEDER) WBC 8.01 3.80 - 9.90 K/cumm Hgb 12.9 11.9 - 15.5 g/dL [facility] ([place]) Hct 37.5 35.6 - 45.5 % [facility] ([place]) Plt 303 150 - 400 K/cumm [facility] ([place]) MPV 11.4 9.1 - 12.3 fL [facility] ([place]) RBC 4.07 3.90 - 5.20 M/cumm [facility] ([place]) MCV 92.1 81.3 - 96.4 fL [facility] ([place]) MCH 31.7 27.1 - 33.3 pg [facility] ([place]) MCHC 34.4 32.3 - 35.7 g/dL [facility] ([place]) RDW CV 13.1 11.1 - 14.9 % [facility] ([place]) RDW SD 43.8 35.7 - 48.1 fL [facility] ([place]) NRBC abs 0.00 0.00 - 0.01 K/cumm [facility] ([place]) Blood 06/18/2025 2:50 PM CORE FEEDER 06/18/2025 2:56 PM CORE FEEDER Andres Nguyen MD LAB BLOOD ORDERABLES Final R esult [facility] ([place]) 1 [facility] Department [place] [address] * (ABNORMAL) Comprehensive metabolic panel (06/18/2025 2:50 PM CORE FEEDER) Sodium 140 135 - 145 mmol/L Potassium, pl 4.0 3.3 - 4.9 mmol/L [facility] ([place]) Chloride 103 97 - 110 mmol/L [facility]) CO2 24 22 - 32 mmol/L [facility] ([place]) Anion gap 13 2 - 15 mmol/L [facility] ([place]) BUN 21 6 - 25 mg/dL [facility] ([place]) Creatinine 0.78 0.60 - 1.10 mg/dL [facility] ([place]) Glucose 103 70 - 199 mg/dL [facility] ([place]) Comment: Interpretive Data Fasting glucose >/= 126 mg/dl is diagnostic for diabetes. Fasting is defined as no caloric intake for at least 8 hours. Fasting glucose between 100 mg/dl to 125 mg/dl is diagnostic of prediabetes. In a patient with classic symptoms of hyperglycemia or hyperglycemic crisis, a random glucose >/= 200 mg/dl is diagnostic for diabetes. In the absence of unequivocal hyperglycemia, results should be confirmed by repeat testing. The classification and Diagnosis of Diabetes Diabetes Care 2021; 46: S19-S40. Current interpretive data was last revised 2022. Calcium 11.0(H) 8.5 - 10.3 mg/dL [facility] ([place]) Bilirubin, total 0.7 0.1 - 1.2 mg/dL [facility] ([place]) Protein, pl 7.4 6.5 - 8.5 g/dL [facility] ([place]) Albumin 4.4 3.5 - 5.0 g/dL [facility] ([place]) Alk phos 109 40 - 130 Units/L [facility] ([place]) ALT 24 7 - 45 Units/L [facility] ([place]) AST 38 10 - 45 Units/L [facility] ([place]) Blood 06/18/2025 2:50 PM CORE FEEDER 06/18/2025 2:56 PM CORE FEEDER Andres Nguyen MD LAB BLOOD ORDERABLES Final R esult Performing Organization Address City/[facility]/ZIP Co de Phone Number [facility] ([place]) 1 [facility] Department [place] [address] * Albumin Creatinine Ratio, Urine (06/29/2023 7:38 PM CORE FEEDER) Albumin Ur 15.8 mg/L [facility] Comment: Interpretive Data No reference range established. Current interpretive data was last revised 2018. Creatinine Ur 314.7 mg/dL [facility] Comment: Interpretive Data No reference range established. Current interpretive data was last revised 2018. Albumin Creatinine Ratio, Ur 5 1 - 29 mg/g [facility] Urine 06/29/2023 7:38 PM CORE FEEDER 06/29/2023 7:38 PM CORE FEEDER Jeffrey Pickering MD LAB URINE ORDERABLES Aminata l Result Performing Organization Address City/[facility]/ZIP Co de Phone Number [facility] [address] Department [place] [address] * Dexa Axial Skeleton Bone Density 1 or 2 Site (08/21/2019 1:26 PM CORE FEEDER) Anatomical Region Laterality Modality Body N/A Other 08/21/2019 4:29 PM CORE FEEDER Impressions 08/21/2019 4:29 PM CORE FEEDER Low bone mass (osteopenia) General Recommendations: 1. Consider an evaluation for secondary causes of osteoporosis in patients with low bone density. 2. All patients should be counseled on adequate intake of calcium (1200 mg/day), vitamin D (600-800 IU daily) and exercise. 3. The National Osteoporosis Foundation (NOF) guidelines recommend initiating pharmacological therapy, in addition to calcium, vitamin D and exercise, to reduce fracture risk when: a. T-score less than or equal to -2.5 after secondary causes excluded. b. T-score between -1.0 and -2.5 with secondary causes associated with high risk of fracture. c. 10-year probability of hip fracture more than or equal to 3% (based on FRAX score). d. 10-year probability of major osteoporosis related fracture more than or equal to 20% (based on FRAX score). Followup: People with diagnosed cases of osteoporosis or at high risk for fracture should have regular bone mineral density tests. For patients eligible for Medicare, routine testing is allowed once every 2 years. The testing frequency can be increased to one year for patients who have rapidly progressive disease or those who are receiving long-term steroid therapy. Electronically signed by: Africa Mcghee 08/21/2019 4:29 PM CORE FEEDER COMPLETION DATE: 08/21/2019 1:00 PM ORDERING HEALTHCARE PROVIDER: ESPERANZA NOVAK STUDY DESCRIPTION: DEXA AXIAL SKELETON BONE DENSITY 1 OR MORE SITES CLINICAL INDICATIONS: post-menopausal osteoporosis prevention Osteoporosis screening- Hip and Spine. COMPARISON: None TECHNIQUE: Dual x-ray absorptiometry (DEXA) was performed using SPORTLOGi[employer] system. GENERAL GUIDELINES: According to WHO guidelines, a T score of -1.0 or greater is normal, between -1.0 to -2.5 is osteopenia, and -2.5 or less is osteoporosis. Z score (instead of T score) is preferred for pediatric, young adults, premenopausal women and men under age of 50 years. In these patients, a Z score greater than or equal to -2.0 is considered to be in the expected range. For our facility, change in BMD of greater than 5% is considered statistically significant. FINDINGS: LEFT FEMORAL NECK: T-score -2.1 LEFT TOTAL HIP: T-score -1.6 LUMBAR SPINE: T-score 0.1 According to the World Health Organization criteria, based upon the left femoral neck bone mineral density (T score value of -2.1), the patient has low bone mass (osteopenia). A FRAX score based upon a DXA study is not reported unless all of the following criteria are met. The patient: a. Is an untreated postmenopausal woman or a man age 50 or older. b. Has low bone mass (T-score between -1.0 and -2.5). c. Has no prior hip or vertebral fracture (clinical or morphometric). d. Has an evaluable hip for DXA study. Procedure Note Uriel Lew MD - 08/21/2019 COMPLETION DATE: 08/21/2019 1:00 PM ORDERING HEALTHCARE PROVIDER: ESPERANZA NOVAK STUDY DESCRIPTION: DEXA AXIAL SKELETON BONE DENSITY 1 OR MORE SITES CLINICAL INDICATIONS: post-menopausal osteoporosis prevention Osteoporosis screening- Hip and Spine. COMPARISON: None TECHNIQUE: Dual x-ray absorptiometry (DEXA) was performed using [employer]LOG[employer] system. GENERAL GUIDELINES: According to WHO guidelines, a T score of -1.0 or greater is normal, between -1.0 to -2.5 is osteopenia, and -2.5 or less is osteoporosis. Z score (instead of T score) is preferred for pediatric, young adults, premenopausal women and men under age of 50 years. In these patients, a Z score greater than or equal to -2.0 is considered to be in the expected range. For our facility, change in BMD of greater than 5% is considered statistically significant. FINDINGS: LEFT FEMORAL NECK: T-score -2.1 LEFT TOTAL HIP: T-score -1.6 LUMBAR SPINE: T-score 0.1 According to the World Health Organization criteria, based upon the left femoral neck bone mineral density (T score value of -2.1), the patient has low bone mass (osteopenia). A FRAX score based upon a DXA study is not reported unless all of the following criteria are met. The patient: a. Is an untreated postmenopausal woman or a man age 50 or older. b. Has low bone mass (T-score between -1.0 and -2.5). c. Has no prior hip or vertebral fracture (clinical or morphometric). d. Has an evaluable hip for DXA study. IMPRESSION: Low bone mass (osteopenia) General Recommendations: 1. Consider an evaluation for secondary causes of osteoporosis in patients with low bone density. 2. All patients should be counseled on adequate intake of calcium (1200 mg/day), vitamin D (600-800 IU daily) and exercise. 3. The National Osteoporosis Foundation (NOF) guidelines recommend initiating pharmacological therapy, in addition to calcium, vitamin D and exercise, to reduce fracture risk when: a. T-score less than or equal to -2.5 after secondary causes excluded. b. T-score between -1.0 and -2.5 with secondary causes associated with high risk of fracture. c. 10-year probability of hip fracture more than or equal to 3% (based on FRAX score). d. 10-year probability of major osteoporosis related fracture more than or equal to 20% (based on FRAX score). Followup: People with diagnosed cases of osteoporosis or at high risk for fracture should have regular bone mineral density tests. For patients eligible for Medicare, routine testing is allowed once every 2 years. The testing frequency can be increased to one year for patients who have rapidly progressive disease or those who are receiving long-term steroid therapy. Electronically signed by: Uriel Lew M.D. us Esperanza Novak NP IMG DXA PROCEDURES Final Result from Last 3 Months or Most Recently Relevant to Health Maintenance Insurance MEDICARE [facility] MEDICARE [facility] Advance Directives For more information, please contact: [phone] Documents on File Type Date Recorded Patient Parts Professional Agusto anation ADVANCE DIRECTIVE 11/04/2023 2:34 AM POLST - Phys Order for PT Preferences ADVANCE DIRECTIVE 05/27/2020 12:42 PM Jenn Johnson OWER OF TEST CASE DEVELOPER-MEDICAL ADVANCE DIRECTIVE 05/02/2020 10:00 AM * LIMITED - No CPR (Latest Code Status on File) Date Activated Date Inactivated Comments 06/19/2025 12:35 AM 06/22/2025 10:26 PM * LIMITED - No CPR Date Activated Date Inactivated Comments 01/01/2025 10:00 PM 01/07/2025 3:40 PM Question Answer Comments Provide aggressive medical m anagement before a full cardiopulmonary arrest occurs. Use antibiotics, IV Fluids, and medical treatment unless specifically selected below: No intubation * LIMITED - No CPR Date Activated Date Inactivated Comments 11/04/2023 2:48 AM 11/05/2023 3:20 PM Question Answer Comments Provide aggressive medical m anagement before a full cardiopulmonary arrest occurs. Use antibiotics, IV Fluids, and medical treatment unless specifically selected below: No intubation * LIMITED - No CPR Date Activated Date Inactivated Comments 10/20/2023 7:48 PM 10/22/2023 7:01 PM Question Answer Comments Provide aggressive medical m anagement before a full cardiopulmonary arrest occurs. Use antibiotics, IV Fluids, and medical treatment unless specifically selected below: No intubation * Full Code Date Activated Date Inactivated Comments 10/20/2023 12:49 AM 10/20/2023 7:48 PM Healthcare Agents on File Name Relationship Healthcare Agent Relationship Communication Chrissy GarciaDacia Daughter Health Care Agent Jenn Blum Daughter Second Alternate Health Care Agent [email or web address] Comfort Filler Relationship Specialty Start Date End Date Jeffrey Pickering MD [address] [place] [address] PCP - General 11/06/16 [place] [address] [facility] [address] [place] [address] Consulting Physician Neurology 10/05/18 Ernestina Blum, SHAMIR [address] [place] [id number] Consulting Physician Foot and Ankle Surg 02/08/21 Kimberly Hansen RN [address] [place] [address] [address] [place] [address] Yard Pipe Grader 06/25/25
--- OUTSIDE RECORDS SUMMARY | 2025-07-26 14:43 | XMS_ITS | Clinical Summary ---
Author Organization [facility] Address [address], [address] [address] Phone Care Team Providers Care Sponge Fisherman Name Role Phone Jeffrey Pickering MD Primary Care Provider [phone] Virginia Ashton TAX AUDIT MANAGER, BARREL TESTER AND DRAINER Unavailable [phone] Liliana Parish TAX AUDIT MANAGER, BARREL TESTER AND DRAINER Unavailable [phone] Allergies Active Allergy Reactions Criticality Noted Date Comments Sulfamethoxazole-Trimet hoprim Rash 04/03/2025 Ciprofloxacin Nausea,Other (see Comments) Medium 10/02/2016 Patient reports feeling nausea and feeling icky Clindamycin Rash High Meperidine Rash High 12/04/2015 Dimenhydrinate Rash 04/03/2025 Iodides Anaphylaxis High If topical on an open area makes wound worse; if ingested or IV anyphylaxis Propoxyphene Itching High 04/03/2025 Rivastigmine Itching 04/03/2025 Sulfa Antibiotics Itching 04/03/2025 Medications Probiotic Product (PROBIOTIC DAILY PO)Indications:diges tive health Take 1 Tab by mouth daily. Indications: digestive health Active fluticasone (FLONASE) 50 MCG/ACT SuspensionIndication s:Nasal Signs and Symptoms,1 squirt 1 Snook by Nasal route daily. 1 spray to each nostril daily Indications: Signs and Symptoms of Nose Diseases, 1 squirt 07/26/20 Active melatonin 3 MG Tablet Take 5 mg by mouth nightly. Active gabapentin (NEURONTIN) 300 MG Capsule Take 300 mg by mouth 2 times daily. Active tiZANidine (ZANAFLEX) 2 MG Tablet Take 2 mg by mouth 2 times daily. Active nitrofurantoin, macrocrystal-monohyd rate, (MACROBID) 100 MG Capsule TAKE 1 CAPSULE BY MOUTH TWICE DAILY FOR 7 DAYS 08/20/19 Active vitamin B complex-C (ALLBEE-C) Tablet Take 1 Tab by mouth. Active dicyclomine (BENTYL) 20 MG Tablet TAKE 1 TABLET BY MOUTH EVERY 6 HOURS 07/19/20 Active escitalopram (LEXAPRO) 10 MG Tablet TAKE 1 TABLET BY MOUTH ONCE DAILY 05/24/20 Active Diclofenac Sodium (VOLTAREN) 1 % Gel Apply 2 g. 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 270 Tab 3 07/26/20 Active acetaminophen (TYLENOL) 500 MG Tablet Take 500 mg by mouth 2 times daily. Active aspirin EC 81 MG Tablet Delayed Response Take 81 mg by mouth daily. Active atorvastatin (LIPITOR) 80 MG Tablet Take 80 mg by mouth daily. Active cholecalciferol 25 mcg Tablet Take 25 mcg by mouth daily. Active donepezil (ARICEPT) 5 MG Tablet Take 5 mg by mouth nightly. Active clopidogrel (PLAVIX) 75 MG Tablet Take 75 mg by mouth daily. Active hyoscyamine (ANASPAZ, LEVSIN) 0.125 MG Tablet Take 0.125 mg by mouth 2 times daily. Take two tablets twice daily with breakfast and lunch Active meloxicam (MOBIC) 7.5 MG Tablet Take 7.5 mg by mouth daily. Active memantine (NAMENDA) 10 MG Tablet Take 10 mg by mouth 2 times daily. Active Multiple Vitamin (MULTIVITAMIN PO) Take by mouth. Active pantoprazole (Protonix) 40 MG Tablet Delayed Response Take 40 mg by mouth daily. Active polyvinyl alcohol (Artificial Tears) 1.4 % Solution Place 1 Drop in both eyes 3 times daily as needed for Dry Eyes. Active polyethylene glycol (MiraLax) 17 g Pack Take 17 g by mouth daily. Dissolve in 4-8 oz of liquid. Active Ubrogepant 100 MG Tablet Take 100 mg by mouth as needed for Other (Migraine). May repeat the dose once in 2 hours if no relief. Do not exceed 2 doses in 24 hours. Active levothyroxine (SYNTHROID) 25 MCG Tablet Take 25 mcg by mouth daily. Active amLODIPine (NORVASC) 5 MG TabletIndications:Hy potension, unspecified hypotension type Take 1 Tablet by mouth daily. 90 Tablet 1 06/07/20 Active Active Problems Problem Noted Date Diagnosed Date Bilateral carotid artery stenosis 06/07/2025 Hypotension 06/07/2025 Coronary artery disease invo lving [place] coronary artery of [place] heart without angina pectoris 06/07/2025 Near syncope 04/03/2025 Mixed hyperlipidemia 09/04/2024 Depression, unspecified 10/22/2023 Chronic obstructive pulmonary disease, unspecifi ed 10/22/2023 Alzheimer's dementia 01/27/2022 Iron deficiency anemia 03/29/2019 History of iron deficiency 05/26/2018 History of gastric bypass 05/26/2018 Meniere's disease 08/06/2017 Intractable nausea 08/30/2016 Intractable abdominal pain 08/30/2016 Anxiety 08/30/2016 Chronic pain syndrome 08/30/2016 Acute diverticulitis 07/22/2016 Colon polyps Diverticulitis GERD (gastroesophageal reflux disease) Gastroparesis Visceral hypersensitivity syndrome Dyspepsia Encopresis IBS (irritable bowel syndrome) Asthma Resolved Problems Problem Noted Date Diagnosed Date Resolved Date Iron deficiency anemia [facility] to inadequate dietary iron intake 10/13/2017 8 Neutropenia 09/15/2017 01/24/2018 Encounters Date Type Department Care Team Description 06/07/2025 2:00 PM CDT [facility] Visit [facility] [address] [place] [address] Liliana Parish, TAX AUDIT MANAGER, BARREL TESTER AND DRAINER Hypotension, unspecified hypotension type (Primary Dx); Mixed hyperlipidemia; Bilateral carotid artery stenosis; Coronary artery disease involving [place] coronary artery of [place] heart without angina pectoris; Alzheimer's dementia without behavioral disturbance, psychotic disturbance, mood disturbance, or anxiety, unspecified dementia severity, unspecified timing of dementia onset Discharge Disposition: Discharged to home or Selfcare 06/07/2025 Travel from Last 3 Months Immunizations Immunization Administration Dates Next Due Covid-19, Mrna, Lnp-s, Pf, 3 0 Mcg/0.3 Ml Dose (Plinga) 10/09/2020,09/11/2020 Influenza Vaccine greater than 3 yrs 04/16/2015 Influenza, High-dose, Quadrivalent 05/29/2020 Influenza, Injectable, Mdck, Preservative Free 06/21/2013 Influenza, Seasonal, Injectable, Undefined 04/16 Influenza, high-dose, trivalent, PF 07/18/2019,0 04/03/2018,07/21/2017 Pneumococcal PCV, Unspecified Formulation 2017 Pneumococcal Vaccine - 13 Valent 04/03/2018 Pneumococcal Vaccine Adult - 23 Valent 9 Family History Medical History Relation Name Comments Heart Attack Father Heart Disease Father Hypertension Mother Kidney Cancer Mother Diabetes Paternal Grandfather Heart Disease Paternal Grandfather Stroke Paternal Grandfather Diabetes Sister Leukemia/Lymphoma Sister Uterine Cancer Sister Relation Name Status Comments Father Mother Paternal Grandfather Sister Social History Tobacco Use Types Packs/Day Years Used Date Smoking Tobacco: Never Smokeless Tobacco: Never Tobacco Cessation:Counseling Given: Not Answered Alcohol Use Standard Drinks/Week Comments No 0 (1 standard drink = 0.6 oz pur e alcohol) Socially when younger Hunger Vital Sign Answer Date Recorded Within the past 12 months, y ou worried that your food would run out before you got the money to buy more. Patient declined Within the past 12 months, t he food you bought just didn't last and you didn't have money to get more. Patient declined PRAPARE - Transportation Answer Date Re corded In the past 12 months, has l ack of transportation kept you from medical appointments or from getting medications? Patient declined 04/03/2025 In the past 12 months, has l ack of transportation kept you from meetings, work, or from getting things needed for daily living? Patient declined 04/03/2025 Housing Stability Vital Sign Answer Chris e Recorded In the last 12 months, was t here a time when you were not able to pay the mortgage or rent on time? Patient declined 04/03/20 25 In the past 12 months, how m any times have you moved where you were living? 0 04/03/2025 At any time in the past 12 m [facility], were you homeless or living in a nursing home (including now)? Patient declined 04/03/2025 [facility] Utilities Answer Date Recorded In the past 12 months has [facility], gas, oil, or water company threatened to shut off services in your home? 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 Not on file Not on file Not o n file Last Filed Vital Signs Vital Sign Reading Time Taken Comments Blood Pressure 106/60 06/07/2025 2:10 PM CDT Pulse 89 06/07/2025 2:10 PM CDT Temperature 36.3 C (97.4 F) 06/07/2025 2:10 PM CDT Respiratory Rate 16 06/07/2025 2:10 PM CDT Oxygen Saturation 99% 06/07/2025 2:10 PM CDT Inhaled Oxygen Concentration - - Weight 94.8 kg (209 lb) 06/07/2025 2:10 PM CDT Height 170.2 cm (5' 7) 06/07/2025 2:10 PM CDT Body Mass Index 32.73 06/07/2025 2:10 PM CDT Plan of Treatment Upcoming Encounters Date Type Department Care Team (Late st Contact Info) Description 09/13/2025 2:15 PM WEATHER ANCHOR Office Visit [facility] - [facility]iology - [place] [address] [place] [address] Giacomo Tim MD [address] [facility]. [address] [place] [address] Health Maintenance Due Date Last Done Comments Hepatitis C Virus (HCV) Screening 1935 TdaP Immunization 1935 Zoster Immunization (1 of 2) 1987 Medicare Initial AWV G0438 01/07/2003 Respiratory Syncytial Virus (RSV) Immunization (Adult) (1 - 1-dose 75+ series) 01/20/2012 DEXA Bone Density 08/21/2021 08/21/2019 Influenza Immunization (#1) 2025 09/2 01/2024, 05/18/2023, 04/01/2022, Additional history exists SARS-COV-2 Immunization ( season) 2025 04/01/2022, 06/26/2021, 10/09/2020, Additional history exists Pneumococcal Immunization (50+ years) Completed 07/18/2019, 04/03/2018, 04/03/2018, Additional history exists Pneumococcal Immunization Combined Discontinued 07/18/2019, 04/03/2018, 04/03/2018, Additional history exists Hepatitis B Immunization Aged Out No longer eligible based on patient's age to complete this topic Human Papillomavirus (HPV) Immunization (No Doses Required) Completed Meningococcal Immunization (ACWY) Aged Out No longer eligible based on patient's age to complete this topic Rotavirus Immunization Aged Out No lo nger eligible based on patient's age to complete this topic Insurance MEDICARE [place]ICAID [place] Advance Directives * Full Code (Latest Code Status on File) Date Activated Date Inactivated Comments 04/03/2025 11:08 PM CPR-Full Esema tment: FULL ARREST: Attempt Resuscitation/CPR wit intubation and mechanical ventilation. PRE-ARREST: Use entire range of life support measures to stabilize the patient. * Full Code Date Activated Date Inactivated Comments 09/28/2016 1:20 PM 09/06/2017 11:09 AM * Full Code Date Activated Date Inactivated Comments 08/30/2016 7:02 PM 08/31/2016 7:34 PM CPR-Full Ac atment: FULL ARREST: Attempt Resuscitation/CPR wit intubation and mechanical ventilation. PRE-ARREST: Use entire range of life support measures to stabilize the patient. * Full Code Date Activated Date Inactivated Comments 07/30/2016 3:21 PM 08/30/2016 7:02 PM * Full Code Date Activated Date Inactivated Comments 07/20/2016 10:54 PM 07/25/2016 12:31 AM CPR-Full Treatment: FULL ARREST: Attempt Resuscitation/CPR wit intubation and mechanical ventilation. PRE-ARREST: Use entire range of life support measures to stabilize the patient. Care Teams Sponge Fisherman Relationship Specialty Start Date End Date Jeffrey Pickering MD [address] [place] [address] PCP - General Internal Medicine 12/02/15 Virginia Ashton APRN, BARREL TESTER AND DRAINER [address] [place] [address] Nurse Practitioner Advanced Practice Nurse 09/03/16 Liliana Parish APRN, BARREL TESTER AND DRAINER 2 [facility] [address] [place] [address] Nurse Practitioner Cardiology 06/08/25
--- OUTSIDE RECORDS SUMMARY | 2025-07-26 14:43 | XMS_ITS | Encounter Summary ---
Author Organization [facility] Healthcare Address [address] [place] [address] Care Team Providers Care Tooling Supervisor Name Role Phone Jeffrey Pickering MD Primary Care Provider [phone] Denise MORENO MD, Rohit Greer Unavailable Ernestina Blum DPM Unavailable [phone] Kimberly Hansen RN Unavailable [phone] Reason for Visit * Reason Onset Date Comments Medical Question/Miscellaneous 07/24/2025 Encounter Details Date Type Department Care Team (Late st Contact Info) Description 07/24/2025 Telephone [facility] [address] [address] Jeffrey Pickering MD [address] [place] [id number] Medical Question/Miscellaneous Social History Tobacco Use Types [...] place to sleep or slept in a skilled nursing (including now)? No 10/20/2023 PHQ-9 Answer Date [...] any time in the past 12 m [facility], were you homeless or living in a skilled nursing (including now)? Patient unable to answer 01/02/2025 [...] attend chur ch or jain services? Never 07/03/2025 Do you belong to any clubs o r organizations such as hinduism groups, unions, fraternal or athletic groups, or [...] any time in the past 12 m [facility], were you homeless or living in a skilled nursing (including now)? No 07/03/2025 [facility] Utilities Answer Date Recorded In the past 12 months has th [employer] electric, gas, oil, or water company threatened [...] on file Legal Sex Female 10:25 AM PRIMARY CARE NURSE Gender Identity Not on file Sexual Orientation Not on file documented as of this encounter Miscellaneous Notes * Telephone Encounter - Diana Ortez MA - 07/25/2025 9:13 AM CST Faxed orders to [facility]. Called Chrissy and made her aware. ARY CARE NURSE * Telephone Encounter - Kimberly Hansen RN - 07/24/2025 2:25 PM PRIMARY CARE NURSE Please see message below. Kimberly Hansen RN ACO Zipper Setter Lockstitch, [facility] Office: [phone] ARY CARE NURSE * Telephone Encounter - Kimberly Hansen RN - 07/24/2025 1:31 PM PRIMARY CARE NURSE [place], I was just speaking to this pt's dtr, Chrissy. She was asking if the lab orders were sent to [facility]? I see them in [facility], but not sure if they were faxed to [facility]. Thank you, Kimberly Hansen RN ACO Zipper Setter Lockstitch, [facility] Office: [phone] ARY CARE NURSE documented in this encounter Plan of Treatment Not on file documented as of this encounter Goals Goal Patient Goal Type Associated Problems Recent Progress Patient-Stated? Author ANNETTE General Goal - Patient is knowledgeable about condition when worsening and how to respond ACO Care Management No Kimberly Hansen RN Note: Problem: Knowledge deficit related to [...] provider. BH-Pain Behavioral Health Improving( 3:56 PM PRIMARY CARE NURSE) No Gwen Rm RN Note: Patient will establish a comfort-function goal and identify the pain level that will allow the patient to perform desired activities and achieve an acceptable quality of life. documented as of this encounter Visit Diagnoses Not on filedocumented in this encounter Care Teams Tooling Supervisor Relationship Specialty Start Date End Date Jeffrey Pickering MD [address] [place] [address] PCP - General 11/06/16 [place] [address] [facility] [address] [place] [address] Consulting Physician Neurology 10/05/18 Ernestina Blum DPM [address] [place] [address] Consulting Physician Foot and Ankle Surg 02/08/21 Kimberly Hansen RN [address] [place] [address] [facility] [address] [place] [address] Zipper Setter Lockstitch 06/25/25 documented as of this encounter
--- OUTSIDE RECORDS SUMMARY | 2025-08-20 18:00 | XMS_ITS | Clinical Summary ---
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, MODERATE, WITH MOOD DISTURB Active 08-09 00:00: 00 MAJOR DEPRESSIVE DISORDER, RECURRENT, MODERATE Active 08-09 00:00: 00 DEM IN OTHER DISEASES CLASSD ELSWHR, MODERATE, WITH ANXIETY Active 08-09 00:00: 00 DEM IN OTHER DIS CLASSD ELSWHR, MOD, WITH OTHER BEH DISTURB Active 08-09 00:00: 00 TYPE 2 DIABETES MELLITUS WITH DIABETIC NEUROPATHY, UNSP Active 08-09 00:00: 00 HYPOTHYROIDI SM, UNSPECIFIED Active 08-09 00:00: 00 MODERATE PROTEIN-HAWK MELONY MALNUTRITION Active 08-09 00:00: 00 TYPE 2 DIABETES W DIABETIC PERIPHERAL ANGIOPATH W/O GANGRENE Active 08-09 00:00: 00 ACTIVATED PROTEIN C RESISTANCE Active 08-09 00:00: 00 ESSENTIAL (PRIMARY) HYPERTENSION Active 08-09 00:00: 00 ANEMIA, UNSPECIFIED Active 08-09 00:00: 00 UNSPECIFIED ASTHMA, UNCOMPLICATE D Active 08-09 00:00: 00 AGE-RELATED OSTEOPOROSIS W/O CURRENT PATHOLOGICAL FRACTURE Active 08-09 00:00: 00 ATHSCL HEART DISEASE OF [place] CORONARY ARTERY W/O ANG PCTRS Active 08-09 00:00: 00 GASTRO-ESOPH AGEAL REFLUX DISEASE WITHOUT ESOPHAGITIS Active 08-09 00:00: 00 POLYOSTEOART HRITIS, UNSPECIFIED Active 08-09 00:00: 00 HYPERLIPIDEM IA, UNSPECIFIED Active 08-09 00:00: 00 MIGRAINE, UNSP, NOT INTRACTABLE, WITHOUT STATUS MIGRAINOSUS Active 08-09 00:00: 00 OLD MYOCARDIAL INFARCTION Active 08-09 00:00: 00 METABOLIC ENCEPHALOPAT HY Active 08-09 00:00: 00 HYPOCALCEMIA Active 08-09 00:00: 00 OTHER CHRONIC PAIN Active 08-09 00:00: 00 DVRTCLOS OF INTEST, PART UNSP, W/O PERF OR ABSCESS W/O BLEED Active 08-09 00:00: 00 PRESENCE OF CORONARY ANGIOPLASTY IMPLANT AND GRAFT Active 08-09 00:00: 00 VIDEO GAME DEVELOPER (CURRENT) USE OF ANTITHROMBOT ICS/ANTIPLAT ELETS Active 08-09 00:00: 00 VIDEO GAME DEVELOPER (CURRENT) USE OF ASPIRIN Active 08-09 00:00: 00 PERSONAL HISTORY OF OTHER VENOUS THROMBOSIS AND EMBOLISM Active 08-09 00:00: 00 PRSNL HX OF TIA (TIA), AND CEREB INFRC W/O RESID DEFICITS Active 08-09 00:00: 00 SOCIAL EXCLUSION AND REJECTION Active 08-09 00:00: 00 VIDEO GAME DEVELOPER (CURRENT) USE OF NON-STEROIDA L NON-INFLAM (NSAID) Active 08-09 00:00: 00 OTHER MCC (CURRENT) DRUG THERAPY Active 08-09 00:00: 00 Problems related to health literacy Active 08-09 00:00: 00 Allergies, Adverse Reactions, Alerts Allergy Name Allergy Type Status Severity Reaction(s) Onset Date Inactive Date Treating Clinician Comments GOOSE FEATHERS Propensity to adverse reactions Active 2024-08 12:56: 00 IODINE Propensity to adverse reactions Active 2024-08 12:56: 48 MOLD MOLD Propensity to adverse reactions Active 2024-08 12:57: 05 RIVASTIGMINE Propensity to adverse reactions Active 2024-08 12:57: 29 BACTRIM Propensity to adverse reactions Active 2024-08 12:57: 45 DIMENHYDRINA TE Propensity to adverse reactions Active 2024-08 12:58: 00 CLINDAMYCIN HCL Propensity to adverse reactions Active 2024-08 12:58: 43 MEPERIDINE Propensity to adverse reactions Active 2024-08 12:59: 30 PROPOXYPHENE N-APAP Propensity to adverse reactions Active 2024-08 13:00: 01 SULFA (SULFONAMIDE ANTIBIOTICS) Propensity to adverse reactions Active 2024-08 13:00: 50 FENTON PEPPER Propensity to adverse reactions Active 2024-08 09:21: 59 Medications Ordered Medication Name Filled Medication Name Start Date Stop Date Current Medication? Ordering Clinician Indication Dosage Frequency Signature (SIG) Comments Components acetaminoph en 500 mg tablet 12-04 00:00: 00 12-06 23:59 :00 No [id number] 2 tablet DAILY 2 tablet DAILY (route: oral) Med Classific ation: Analgesic , Anti-infl ammatory or Antipyret ic Aimovig Autoinjecto r 140 mg/mL subcutaneou s auto-inject or 12-04 00:00: 00 01-04 23:59 :00 No [id number] 1 mL MONTHLY 1 mL MONTHLY (route: subcutaneo us) Med Classific ation: Central Nervous System Agents amlodipine 5 mg tablet 12-04 00:00: 00 01-04 23:59 :00 No [id number] 1 tablet DAILY 1 tablet DAILY (route: oral) Med Classific ation: Cardiovas cular Therapy Agents aspirin 81 mg tablet,miguel yed release 12-04 00:00: 00 01-04 23:59 :00 No [id number] 1 tablet DAILY 1 tablet DAILY (route: oral) Med Classific ation: Hematolog ical Agents atorvastati n 80 mg tablet 12-04 00:00: 00 01-04 23:59 :00 No [id number] 1 tablet DAILY 1 tablet DAILY (route: oral) Med Classific ation: Cardiovas cular Therapy Agents dicyclomine 20 mg tablet 12-04 00:00: 00 01-04 23:59 :00 No [id number] 2 tablet 2 TIMES DAILY 2 tablet 2 TIMES DAILY (route: oral) Med Classific ation: Gastroint estinal Therapy Agents escitalopra m 10 mg tablet 12-04 00:00: 00 01-04 23:59 :00 No [id number] 1 tablet DAILY 1 tablet DAILY (route: oral) Med Classific ation: Central Nervous System Agents furosemide 20 mg tablet 12-04 00:00: 00 01-04 23:59 :00 No [id number] 1 tablet DAILY 1 tablet DAILY (route: oral) Med Classific ation: Cardiovas cular Therapy Agents gabapentin 600 mg tablet 12-04 00:00: 00 01-04 23:59 :00 No [id number] 1 tablet 2 TIMES DAILY 1 tablet 2 TIMES DAILY (route: oral) Med Classific ation: Central Nervous System Agents hyoscyamine 0.125 mg disintegrat ing tablet 12-04 00:00: 00 01-04 23:59 :00 No [id number] 2 tablet 2 TIMES DAILY 2 tablet 2 TIMES DAILY (route: oral) Med Classific ation: Gastroint estinal Therapy Agents levothyroxi ne 25 mcg tablet 12-04 00:00: 00 01-04 23:59 :00 No [id number] 1 tablet DAILY 1 tablet DAILY (route: oral) Med Classific ation: Endocrine lisinopril 5 mg tablet 12-04 00:00: 00 01-04 23:59 :00 No [id number] 1 tablet DAILY 1 tablet DAILY (route: oral) Med Classific ation: Cardiovas cular Therapy Agents meloxicam 7.5 mg tablet 12-04 00:00: 00 01-04 23:59 :00 No [id number] 1 tablet DAILY 1 tablet DAILY (route: oral) Med Classific ation: Analgesic , Anti-infl ammatory or Antipyret ic meloxicam submicroniz ed 5 mg capsule 12-04 00:00: 00 12-05 15:06 :04.5 5 No [id number] 1 capsule DAILY 1 capsule DAILY (route: oral) Med Classific ation: Analgesic , Anti-infl ammatory or Antipyret ic memantine 10 mg tablet 12-04 00:00: 00 01-04 23:59 :00 No [id number] 1 tablet 2 TIMES DAILY 1 tablet 2 TIMES DAILY (route: oral) Med Classific ation: Cognitive Disorder Therapy Nystop 100,000 unit/gram topical powder 12-04 00:00: 00 01-04 23:59 :00 No [id number] Per instruc tions 2 TIMES DAILY Per instructio ns 2 TIMES DAILY (route: topical) Med Classific ation: Dermatolo gical omeprazole 40 mg capsule,del ayed release 12-04 00:00: 00 01-04 23:59 :00 No [id number] 1 capsule 2 TIMES DAILY 1 capsule 2 TIMES DAILY (route: oral) Med Classific ation: Gastroint estinal Therapy Agents Plavix 75 mg tablet 12-04 00:00: 00 01-04 23:59 :00 No [id number] 1 tablet DAILY 1 tablet DAILY (route: oral) Med Classific ation: Hematolog ical Agents tizanidine 2 mg tablet 12-04 00:00: 00 01-04 23:59 :00 No [id number] 1 tablet 2 TIMES DAILY 1 tablet 2 TIMES DAILY (route: oral) Med Classific ation: Locomotor System Tylenol Extra Strength 500 mg tablet 12-04 00:00: 00 12-06 23:59 :00 No [id number] 1 tablet 2 TIMES DAILY 1 tablet 2 TIMES DAILY (route: oral) Med Classific ation: Analgesic , Anti-infl ammatory or Antipyret ic vitamin B complex tablet 12-04 00:00: 00 01-04 23:59 :00 No [id number] 1 tablet DAILY 1 tablet DAILY (route: oral) Med Classific ation: Electroly te Balance-N lalithaa l Products Vitamin D3 25 mcg (1,000 unit) tablet 12-04 00:00: 00 01-04 23:59 :00 No [id number] 1 tablet DAILY 1 tablet DAILY (route: oral) Med Classific ation: Electroly te Balance-N lalithaa l Products oxycodone 5 mg tablet 12-03 00:00: 00 01-04 23:59 :00 No [id number] 1 tablet EVERY 6 HOURS 1 tablet EVERY 6 HOURS (route: oral) Med Classific ation: Analgesic , Anti-infl ammatory or Antipyret ic zinc oxide 22 % topical cream 12-03 00:00: 00 01-04 23:59 :00 No [id number] Per instruc tions DIRECTED Per instructio ns DIRECTED (route: topical) Med Classific ation: Dermatolo gical Dermal Wound Cleanser 12-03 00:00: 00 01-04 23:59 :00 No [id number] Per instruc tions DIRECTED Per instructio ns DIRECTED (route: topical) Med Classific ation: Dermatolo gical acetaminoph en 500 mg tablet 12-06 00:00: 00 01-04 23:59 :00 No [id number] 1 tablet 2 TIMES DAILY 1 tablet 2 TIMES DAILY (route: oral) Med Classific ation: Analgesic , Anti-infl ammatory or Antipyret ic acetaminoph en 500 mg tablet 12-06 00:00: 00 01-04 23:59 :00 No [id number] 2 tablet DAILY 2 tablet DAILY (route: oral) Med Classific ation: Analgesic , Anti-infl ammatory or Antipyret ic acetaminoph en 500 mg tablet 01-09 00:00: 00 06-20 23:59 :00 No [id number] 2 tablet 2 TIMES DAILY 2 tablet 2 TIMES DAILY (route: oral) Med Classific ation: Analgesic , Anti-infl ammatory or Antipyret ic aspirin 81 mg tablet,miguel greer release 01-09 00:00: 00 06-20 23:59 :00 No [id number] 1 tablet DAILY 1 tablet DAILY (route: oral) Med Classific ation: Hematolog ical Agents atorvastati n 80 mg tablet 01-09 00:00: 00 06-20 23:59 :00 No [id number] 1 tablet BEDTIME 1 tablet BEDTIME (route: oral) Med Classific ation: Cardiovas cular Therapy Agents clopidogrel 75 mg tablet 01-09 00:00: 00 06-20 23:59 :00 No [id number] 1 tablet DAILY 1 tablet DAILY (route: oral) Med Classific ation: Hematolog ical Agents dicyclomine 20 mg tablet 01-09 00:00: 00 06-20 23:59 :00 No [id number] 2 tablet 2 TIMES DAILY 2 tablet 2 TIMES DAILY (route: oral) Med Classific ation: Gastroint estinal Therapy Agents escitalopra m 10 mg tablet 01-09 00:00: 00 06-20 23:59 :00 No [id number] 1 tablet DAILY 1 tablet DAILY (route: oral) Med Classific ation: Central Nervous System Agents gabapentin 600 mg tablet 01-09 00:00: 00 06-20 23:59 :00 No [id number] 1 tablet 2 TIMES DAILY 1 tablet 2 TIMES DAILY (route: oral) Med Classific ation: Central Nervous System Agents hyoscyamine 0.125 mg sublingual tablet 01-09 00:00: 00 06-20 23:59 :00 No [id number] 2 tablet 2 TIMES DAILY 2 tablet 2 TIMES DAILY (route: sublingual ) Med Classific ation: Gastroint estinal Therapy Agents levothyroxi ne 25 mcg tablet 01-09 00:00: 00 06-20 23:59 :00 No [id number] 1 tablet DAILY 1 tablet DAILY (route: oral) Med Classific ation: Endocrine melatonin 5 mg tablet 01-09 00:00: 00 06-20 23:59 :00 No [id number] 1 tablet BEDTIME 1 tablet BEDTIME (route: oral) Med Classific ation: Central Nervous System Agents meloxicam 7.5 mg tablet 01-09 00:00: 00 06-20 23:59 :00 No [id number] 1 tablet DAILY 1 tablet DAILY (route: oral) Med Classific ation: Analgesic , Anti-infl ammatory or Antipyret ic memantine 10 mg tablet 01-09 00:00: 00 06-20 23:59 :00 No [id number] 1 tablet 2 TIMES DAILY 1 tablet 2 TIMES DAILY (route: oral) Med Classific ation: Cognitive Disorder Therapy pantoprazol e 40 mg tablet,miguel yed release 01-09 00:00: 00 06-20 23:59 :00 No [id number] 1 tablet DAILY 1 tablet DAILY (route: oral) Med Classific ation: Gastroint estinal Therapy Agents vitamin B complex tablet 01-09 00:00: 00 06-20 23:59 :00 No [id number] 1 tablet DAILY 1 tablet DAILY (route: oral) Med Classific ation: Electroly te Balance-N utritiona l Products Desitin 40 % topical paste 01-09 00:00: 00 06-20 23:59 :00 No [id number] Per instruc tions DIRECTED Per instructio ns DIRECTED (route: topical) Med Classific ation: Dermatolo gical Aimovig Autoinjecto r 140 mg/mL subcutaneou s auto-inject or 01-09 00:00: 00 01-10 23:59 :00 No [id number] 1 mL MONTHLY 1 mL MONTHLY (route: subcutaneo us) Med Classific ation: Central Nervous System Agents azelastine 0.05 % eye drops 01-09 00:00: 00 06-20 23:59 :00 No [id number] 1 drops 2 TIMES DAILY 1 drops 2 TIMES DAILY (route: ophthalmic (eye)) Med Classific ation: Ophthalmi c Agents cetirizine 10 mg tablet 01-09 00:00: 00 06-20 23:59 :00 No [id number] 1 tablet DAILY 1 tablet DAILY (route: oral) Med Classific ation: Respirato ry Therapy Agents cholecalcif dandre (vitamin D3) 25 mcg (1,000 unit) tablet 01-09 00:00: 00 06-20 23:59 :00 No [id number] 1 tablet DAILY 1 tablet DAILY (route: oral) Med Classific ation: Electroly te Balance-N utritiona l Products fluticasone propionate 50 mcg/actuati on nasal spray,suspe nsion 01-09 00:00: 00 06-20 23:59 :00 No [id number] 2 spray DAILY 2 spray DAILY (route: nasal) Med Classific ation: Respirato ry Therapy Agents Miralax 17 gram oral powder packet 01-09 00:00: 00 06-20 23:59 :00 No [id number] 1 powder in packet DAILY 1 powder in packet DAILY (route: oral) Med Classific ation: Gastroint estinal Therapy Agents tizanidine 2 mg tablet 01-09 00:00: 00 02-13 23:59 :00 No [id number] 1 tablet 2 TIMES DAILY 1 tablet 2 TIMES DAILY (route: oral) Med Classific ation: Locomotor System Ubrelvy 100 mg tablet 01-09 00:00: 00 06-20 23:59 :00 No [id number] 1 tablet DAILY 1 tablet DAILY (route: oral) Med Classific ation: Central Nervous System Agents acetaminoph en 500 mg tablet 2024-08 00:00: 00 Yes [id number] 2 tablet 2 TIMES DAILY 2 tablet 2 TIMES DAILY (route: oral) Med Classific ation: Analgesic , Anti-infl ammatory or Antipyret ic aspirin 81 mg tablet,miguel yed release 2024-08 00:00: 00 Yes [id number] 1 tablet DAILY 1 tablet DAILY (route: oral) Med Classific ation: Hematolog ical Agents atorvastati n 80 mg tablet 2024-08 00:00: 00 Yes [id number] 1 tablet BEDTIME 1 tablet BEDTIME (route: oral) Med Classific ation: Cardiovas cular Therapy Agents B-complex with vitamin C capsule 2024-08 00:00: 00 Yes [id number] 1 capsule DAILY 1 capsule DAILY (route: oral) Med Classific ation: Electroly te Balance-N utritiona l Products cholecalcif dandre (vitamin D3) 25 mcg (1,000 unit) tablet 2024-08 00:00: 00 Yes [id number] 1 tablet DAILY 1 tablet DAILY (route: oral) Med Classific ation: Electroly te Balance-N utritiona l Products clopidogrel 75 mg tablet 2024-08 00:00: 00 Yes [id number] 1 tablet DAILY 1 tablet DAILY (route: oral) Med Classific ation: Hematolog ical Agents dicyclomine 20 mg tablet 2024-08 00:00: 00 Yes [id number] 2 tablet 2 TIMES DAILY 2 tablet 2 TIMES DAILY (route: oral) Med Classific ation: Gastroint estinal Therapy Agents donepezil 5 mg tablet 2024-08 00:00: 00 Yes [id number] 1 tablet BEDTIME 1 tablet BEDTIME (route: oral) Med Classific ation: Cognitive Disorder Therapy escitalopra m 10 mg tablet 2024-08 00:00: 00 Yes [id number] 1 tablet DAILY 1 tablet DAILY (route: oral) Med Classific ation: Central Nervous System Agents gabapentin 600 mg tablet 2024-08 00:00: 00 Yes [id number] 1 tablet 2 TIMES DAILY 1 tablet 2 TIMES DAILY (route: oral) Med Classific ation: Central Nervous System Agents hyoscyamine sulfate 0.125 mg tablet 2024-08 00:00: 00 Yes [id number] 2 tablet 2 TIMES DAILY 2 tablet 2 TIMES DAILY (route: oral) Med Classific ation: Gastroint estinal Therapy Agents levothyroxi ne 25 mcg tablet 2024-08 00:00: 00 Yes [id number] 1 tablet DAILY 1 tablet DAILY (route: oral) Med Classific ation: Endocrine melatonin 5 mg tablet 2024-08 00:00: 00 Yes [id number] 1 tablet BEDTIME 1 tablet BEDTIME (route: oral) Med Classific ation: Central Nervous System Agents meloxicam 7.5 mg tablet 2024-08 00:00: 00 Yes [id number] 1 tablet DAILY 1 tablet DAILY (route: oral) Med Classific ation: Analgesic , Anti-infl ammatory or Antipyret ic memantine 10 mg tablet 2024-08 00:00: 00 Yes [id number] 1 tablet 2 TIMES DAILY 1 tablet 2 TIMES DAILY (route: oral) Med Classific ation: Cognitive Disorder Therapy pantoprazol e 40 mg tablet,miguel yed release 2024-08 00:00: 00 Yes [id number] 1 tablet DAILY 1 tablet DAILY (route: oral) Med Classific ation: Gastroint estinal Therapy Agents tizanidine 2 mg tablet 2024-08 00:00: 00 Yes [id number] 1 tablet 2 TIMES DAILY 1 tablet 2 TIMES DAILY (route: oral) Med Classific ation: Locomotor System amlodipine 10 mg tablet 2024-08 00:00: 00 Yes [id number] 1 tablet DAILY 1 tablet DAILY (route: oral) Med Classific ation: Cardiovas cular Therapy Agents cefdinir 300 mg capsule 2024-08 00:00: 00 06-26 23:59 :00 No [id number] 1 capsule 2 TIMES DAILY 1 capsule 2 TIMES DAILY (route: oral) Med Classific ation: Anti-Infe ctive Agents cinacalcet 30 mg tablet 2024-08 00:00: 00 Yes [id number] 1 tablet DAILY 1 tablet DAILY (route: oral) Med Classific ation: Endocrine fluticasone propionate 50 mcg/actuati on nasal spray,suspe nsion 2024-08 00:00: 00 Yes [id number] 2 spray DAILY 2 spray DAILY (route: nasal) Med Classific ation: Respirato ry Therapy Agents meclizine 12.5 mg tablet 2024-08 00:00: 00 Yes [id number] 1 tablet 3 TIMES DAILY 1 tablet 3 TIMES DAILY (route: oral) Med Classific ation: Gastroint estinal Therapy Agents polyethylen e glycol 3350 17 gram oral powder packet 2024-08 00:00: 00 Yes [id number] 1 powder in packet DAILY 1 powder in packet DAILY (route: oral) Med Classific ation: Gastroint estinal Therapy Agents Artificial Tears (polyvinyl alcohol) 1.4 % eye drops 2024-08 00:00: 00 Yes [id number] 1 drops 3 TIMES DAILY 1 drops 3 TIMES DAILY (route: ophthalmic (eye)) Med Classific ation: Ophthalmi c Agents sodium di- and monophospha te-potassiu m phos monobasic 250 mg tablet 2024-08 00:00: 00 06-26 23:59 :00 No [id number] 1 tablet 3 TIMES DAILY 1 tablet 3 TIMES DAILY (route: oral) Med Classific ation: Genitouri nary Therapy Ubrelvy 100 mg tablet 2024-08 00:00: 00 Yes [id number] 1 tablet NEEDED 1 tablet NEEDED (route: oral) Med Classific ation: Central Nervous System Agents ciprofloxac in 500 mg tablet 2024-08 00:00: 00 07-24 23:59 :00 No [id number] 1 tablet 2 TIMES DAILY 1 tablet 2 TIMES DAILY (route: oral) Med Classific ation: Anti-Infe ctive Agents Immunizations Ordered Immunization Name Filled Immunization Name Date Status Comments Refusal Reason REFUSED COVID, COVID-19 2025-06-23 00:00:00 REFUSED FLU, PPV 2025-06-23 00:00:00 Vital Signs Vital Name Observation Time Observation Value Commen ts Temperature 2025-07-23 12:48:00.000 97.5 [degF] Temperature 2025-07-19 15:10:00.000 97.6 [degF] Temperature 2025-07-18 10:21:00.000 97.6 [degF] Temperature 2025-07-16 11:43:00.000 98 [degF] Temperature 2025-07-16 08:52:00.000 98 [degF] Temperature 2025-07-13 07:52:00.000 98 [degF] Temperature 2025-07-12 12:43:00.000 97.5 [degF] Temperature 2025-07-10 12:19:00.000 97 [degF] Temperature 2025-07-04 07:38:00.000 97.8 [degF] Temperature 2025-06-29 14:22:00.000 98.6 [degF] Temperature 2025-06-28 13:43:00.000 97.7 [degF] Temperature 2025-06-23 11:22:00.000 96.8 [degF] BMI (%) 2025-06-23 11:22:00.000 31 kg/m2 Height 2025-06-23 11:22:00.000 67 [in_us] Pulse 2025-07-23 12:52:00.000 84 /min Pulse 2025-07-19 15:10:00.000 76 /min Pulse 2025-07-18 10:21:00.000 82 /min Pulse 2025-07-16 11:43:00.000 64 /min Pulse 2025-07-16 08:52:00.000 64 /min Pulse 2025-07-13 07:52:00.000 74 /min Pulse 2025-07-12 12:43:00.000 70 /min Pulse 2025-07-10 12:19:00.000 83 /min Pulse 2025-07-04 07:38:00.000 80 /min Pulse 2025-06-29 14:22:00.000 68 /min Pulse 2025-06-28 13:43:00.000 98 /min Pulse 2025-06-23 11:22:00.000 68 /min O2 Saturation (%) 2025-07-23 12:51:00.000 100 % O2 Saturation (%) 2025-07-19 15:10:00.000 96 % O2 Saturation (%) 2025-07-18 10:24:00.000 96 % O2 Saturation (%) 2025-07-16 11:43:00.000 96 % O2 Saturation (%) 2025-07-16 08:52:00.000 96 % O2 Saturation (%) 2025-07-13 07:52:00.000 98 % O2 Saturation (%) 2025-07-12 12:46:00.000 97 % O2 Saturation (%) 2025-07-10 12:19:00.000 97 % O2 Saturation (%) 2025-07-04 07:38:00.000 98 % O2 Saturation (%) 2025-06-29 14:22:00.000 92 % O2 Saturation (%) 2025-06-28 13:43:00.000 98 % O2 Saturation (%) 2025-06-23 11:22:00.000 98 % Respirations 2025-07-23 12:48:00.000 16 /min Respirations 2025-07-19 15:10:00.000 16 /min Respirations 2025-07-18 10:21:00.000 16 /min Respirations 2025-07-16 11:43:00.000 16 /min Respirations 2025-07-16 08:52:00.000 16 /min Respirations 2025-07-13 07:52:00.000 16 /min Respirations 2025-07-12 12:43:00.000 16 /min Respirations 2025-07-10 12:19:00.000 14 /min Respirations 2025-07-04 07:38:00.000 18 /min Respirations 2025-06-29 14:22:00.000 18 /min Respirations 2025-06-28 13:43:00.000 18 /min Respirations 2025-06-23 11:22:00.000 18 /min Weight (lbs) 2025-06-23 11:22:00.000 201 [lb_av] Systolic Blood Pressure 2025-07-23 12:48:00.000 140 mm [Hg] Systolic Blood Pressure 2025-07-19 15:10:00.000 122 mm [Hg] Systolic Blood Pressure 2025-07-18 10:21:00.000 127 mm [Hg] Systolic Blood Pressure 2025-07-16 11:43:00.000 124 mm [Hg] Systolic Blood Pressure 2025-07-16 08:52:00.000 124 mm [Hg] Systolic Blood Pressure 2025-07-13 07:52:00.000 118 mm [Hg] Systolic Blood Pressure 2025-07-12 12:43:00.000 135 mm [Hg] Systolic Blood Pressure 2025-07-10 12:19:00.000 110 mm [Hg] Systolic Blood Pressure 2025-07-04 07:38:00.000 128 mm [Hg] Systolic Blood Pressure 2025-06-29 14:22:00.000 122 mm [Hg] Systolic Blood Pressure 2025-06-28 13:43:00.000 100 mm [Hg] Systolic Blood Pressure 2025-06-23 11:22:00.000 120 mm [Hg] Diastolic Blood Pressure 2025-07-23 12:48:00.000 63 mm [Hg] Diastolic Blood Pressure 2025-07-19 15:10:00.000 70 mm [Hg] Diastolic Blood Pressure 2025-07-18 10:21:00.000 76 mm [Hg] Diastolic Blood Pressure 2025-07-16 11:43:00.000 82 mm [Hg] Diastolic Blood Pressure 2025-07-16 08:52:00.000 82 mm [Hg] Diastolic Blood Pressure 2025-07-13 07:52:00.000 78 mm [Hg] Diastolic Blood Pressure 2025-07-12 12:43:00.000 78 mm [Hg] Diastolic Blood Pressure 2025-07-10 12:19:00.000 70 mm [Hg] Diastolic Blood Pressure 2025-07-04 07:38:00.000 62 mm [Hg] Diastolic Blood Pressure 2025-06-29 14:22:00.000 64 mm [Hg] Diastolic Blood Pressure 2025-06-28 13:43:00.000 60 mm [Hg] Diastolic Blood Pressure 2025-06-23 11:22:00.000 72 mm [Hg] Plan of Treatment Planned Activity Planned Date Details Comments Future Scheduled Test SKILLED NU RSE TO EVALUATE PATIENT, IDENTIFY PRIMARY AND CO-MORBID CONDITIONS CODED PER CODING GUIDELINES, AND DEVELOP PATIENT SPECIFIC PLAN OF CARE THAT INCLUDES PATIENT GOAL FOR HOME HEALTH. PLAN OF CARE TO INCLUDE 3 PRN VISIT(S) FOR OASIS DATA COLLECTION/COMPREHENSIVE ASSESSMENT AT TIMEPOINTS PER FEDERAL REGULATIONS. THIS INCLUDES VISITS FOR ADÁN, RECERT, SCIC, AND/OR DC. [code = SKILLED NURSE TO EVALUATE PATIENT, IDENTIFY PRIMARY AND CO-MORBID CONDITIONS CODED PER CODING GUIDELINES, AND DEVELOP PATIENT SPECIFIC PLAN OF CARE THAT INCLUDES PATIENT GOAL FOR HOME HEALTH. PLAN OF CARE TO INCLUDE 3 PRN VISIT(S) FOR OASIS DATA COLLECTION/COMPREHENSIVE ASSESSMENT AT TIMEPOINTS PER FEDERAL REGULATIONS. THIS INCLUDES VISITS FOR ADÁN, RECERT, SCIC, AND/OR DC.] Future Scheduled Test [facility] MAY ACCEPT ORDERS FROM THE FOLLOWING PHYSICIANS: COMPUTERIZED MACHINE FABRIC CUTTER/TREATING PROVIDERS [code = HOME HEALTH AGENCY MAY ACCEPT ORDERS FROM THE FOLLOWING PHYSICIANS: COMPUTERIZED MACHINE FABRIC CUTTER/TREATING PROVIDERS] Future Scheduled Test SKILLED NU RSE TO PROVIDE TEACHING/REINFORCEMENT RELATED TO URINARY INCONTINENCE. [code = SKILLED NURSE TO PROVIDE TEACHING/REINFORCEMENT RELATED TO URINARY INCONTINENCE.] Future Scheduled Test SKILLED NU RSE TO ASSESS ANXIETY AND PROVIDE ASSISTANCE TO PATIENT FOR UNDERSTANDING AND MANAGEMENT OF FEELINGS. [code = SKILLED NURSE TO ASSESS ANXIETY AND PROVIDE ASSISTANCE TO PATIENT FOR UNDERSTANDING AND MANAGEMENT OF FEELINGS.] Future Scheduled Test OCCUPATION AL THERAPIST TO EVALUATE PATIENT FOR ADL DEFICIT [code = OCCUPATIONAL THERAPIST TO EVALUATE PATIENT FOR ADL DEFICIT] Future Scheduled Test PHYSICAL T HERAPIST TO EVALUATE PATIENT FOR GAIT AND STRENGTH TRAINING [code = PHYSICAL THERAPIST TO EVALUATE PATIENT FOR GAIT AND STRENGTH TRAINING] Future Scheduled Test SKILLED NU RSE FOR OBSERVATION AND ASSESSMENT TO IDENTIFY CHANGES ASSOCIATED WITH DEMENTIA AND TEACHING RELATED TO SAFETY MEASURES TO PREVENT INJURY, ELOPEMENT RISKS, BEHAVIOR CHANGES, ACTIVITIES, AND ENVIRONMENTAL CHANGES ALL SECONDARY TO IMPAIRED COGNITIVE STATUS. [code = SKILLED NURSE FOR OBSERVATION AND ASSESSMENT TO IDENTIFY CHANGES ASSOCIATED WITH DEMENTIA AND TEACHING RELATED TO SAFETY MEASURES TO PREVENT INJURY, ELOPEMENT RISKS, BEHAVIOR CHANGES, ACTIVITIES, AND ENVIRONMENTAL CHANGES ALL SECONDARY TO IMPAIRED COGNITIVE STATUS.] Future Scheduled Test SKILLED NU RSE FOR O/A AND TEACHING ON SIGNS AND SYMPTOMS AND MANAGEMENT OF CHRONIC HYPOTENSION. [code = SKILLED NURSE FOR O/A AND TEACHING ON SIGNS AND SYMPTOMS AND MANAGEMENT OF CHRONIC HYPOTENSION.] Future Scheduled Test PATIENT FUNES S A RISK OF HOSPITALIZATION AND ED USE. SKILLED NURSE TO ESTABLISH SUPPORT MEASURES TO MINIMIZE RISK OF HOSPITALIZATION AND ED USE, AND INSTRUCT PATIENT/CAREGIVER ON METHODS TO REDUCE AVOIDABLE HOSPITALIZATION AND ED USE. [code = PATIENT HAS A RISK OF HOSPITALIZATION AND ED USE. SKILLED NURSE TO ESTABLISH SUPPORT MEASURES TO MINIMIZE RISK OF HOSPITALIZATION AND ED USE, AND INSTRUCT PATIENT/CAREGIVER ON METHODS TO REDUCE AVOIDABLE HOSPITALIZATION AND ED USE.] Future Scheduled Test SKILLED NU RSE TO PROVIDE INSTRUCTION TO PATIENT/CAREGIVER RELATED TO DISCHARGE PLANNING. [code = SKILLED NURSE TO PROVIDE INSTRUCTION TO PATIENT/CAREGIVER RELATED TO DISCHARGE PLANNING.] Future Scheduled Test SKILLED NU RSE TO PERFORM ENVIRONMENTAL SAFETY RISK ASSESSMENT AND FALL RISK ASSESSMENT AND PROVIDE INSTRUCTION TO IMPLEMENT ENVIRONMENTAL SAFETY AND FALL PREVENTION STRATEGIES THROUGHOUT THE CERTIFICATION PERIOD. SKILLED NURSE WILL MAINTAIN SITUATIONAL AWARENESS AND WILL NOTIFY CLINICAL READERS' ADVISORY SERVICE LIBRARIAN AND PHYSICIAN/PROVIDER WITH ANY CHANGE IN CONDITION. [code = SKILLED NURSE TO PERFORM ENVIRONMENTAL SAFETY RISK ASSESSMENT AND FALL RISK ASSESSMENT AND PROVIDE INSTRUCTION TO IMPLEMENT ENVIRONMENTAL SAFETY AND FALL PREVENTION STRATEGIES THROUGHOUT THE CERTIFICATION PERIOD. SKILLED NURSE WILL MAINTAIN SITUATIONAL AWARENESS AND WILL NOTIFY CLINICAL READERS' ADVISORY SERVICE LIBRARIAN AND PHYSICIAN/PROVIDER WITH ANY CHANGE IN CONDITION.] Future Scheduled Test SKILLED NU RSE FOR OBSERVATION AND ASSESSMENT OF PATIENT S PAIN LEVEL AND EFFECTIVENESS OF PAIN MANAGEMENT REGIMEN. SKILLED NURSE TO INSTRUCT PATIENT/CAREGIVER REGARDING PHARMACOLOGIC AND NON-PHARMACOLOGIC PAIN CONTROL MEASURES. SKILLED NURSE TO REPORT TO PHYSICIAN IF PAIN LEVEL IS OUTSIDE OF ESTABLISHED PARAMETERS. [code = SKILLED NURSE FOR OBSERVATION AND ASSESSMENT OF PATIENT S PAIN LEVEL AND EFFECTIVENESS OF PAIN MANAGEMENT REGIMEN. SKILLED NURSE TO INSTRUCT PATIENT/CAREGIVER REGARDING PHARMACOLOGIC AND NON-PHARMACOLOGIC PAIN CONTROL MEASURES. SKILLED NURSE TO REPORT TO PHYSICIAN IF PAIN LEVEL IS OUTSIDE OF ESTABLISHED PARAMETERS.] Future Scheduled Test SKILLED NU RSE TO ASSESS PATIENT'S SKIN INTEGRITY AND INSTRUCT PATIENT/CAREGIVER ON MEASURES TO PREVENT PRESSURE ULCERS. [code = SKILLED NURSE TO ASSESS PATIENT'S SKIN INTEGRITY AND INSTRUCT PATIENT/CAREGIVER ON MEASURES TO PREVENT PRESSURE ULCERS.] Future Scheduled Test SKILLED NU RSE TO PROVIDE ASSESSMENT AND TEACHING/REINFORCEMENT OF MANAGEMENT OF DEPRESSION INCLUDING DISEASE PROCESS, MEDICATION MANAGEMENT, COPING SKILLS AND IDENTIFY CHANGES ASSOCIATED WITH DEPRESSIVE DISORDERS FOR EARLY INTERVENTION. [code = SKILLED NURSE TO PROVIDE ASSESSMENT AND TEACHING/REINFORCEMENT OF MANAGEMENT OF DEPRESSION INCLUDING DISEASE PROCESS, MEDICATION MANAGEMENT, COPING SKILLS AND IDENTIFY CHANGES ASSOCIATED WITH DEPRESSIVE DISORDERS FOR EARLY INTERVENTION.] Future Scheduled Test SKILLED NU RSE TO REVIEW PATIENT MEDICATIONS (PRESCRIPTION/OTC). INSTRUCT PATIENT/CAREGIVER ON ALL MEDICATIONS INCLUDING PURPOSE, WHEN TO TAKE, IMPORTANCE OF MEDICATION ADHERENCE, MONITORING OF EFFECTIVENESS, ADVERSE DRUG REACTIONS, POSSIBLE SIDE EFFECTS, AND WHEN TO NOTIFY AGENCY OR PHYSICIAN/PROVIDER OF ANY CONCERNS. [code = SKILLED NURSE TO REVIEW PATIENT MEDICATIONS (PRESCRIPTION/OTC). INSTRUCT PATIENT/CAREGIVER ON ALL MEDICATIONS INCLUDING PURPOSE, WHEN TO TAKE, IMPORTANCE OF MEDICATION ADHERENCE, MONITORING OF EFFECTIVENESS, ADVERSE DRUG REACTIONS, POSSIBLE SIDE EFFECTS, AND WHEN TO NOTIFY AGENCY OR PHYSICIAN/PROVIDER OF ANY CONCERNS.] Future Scheduled Test SKILLED NU RSE FOR O/A, TEACHING AND MANAGEMENT OF URINARY TRACT INFECTION. [code = SKILLED NURSE FOR O/A, TEACHING AND MANAGEMENT OF URINARY TRACT INFECTION.] Future Scheduled Test OCCUPATION AL THERAPIST TO EVALUATE PATIENT SECONDARY TO FUNCTIONAL DEFICITS/SAFETY CONCERNS IDENTIFIED DURING EVALUATION OCCUPATIONAL THERAPY TO ESTABLISH /UPGRADE/DOWNGRADE THERAPEUTIC EXERCISE PROGRAM AND INSTRUCT PATIENT/CAREGIVER ON EXERCISE PRECAUTIONS WITH WRITTEN HOME PROGRAM. MAY INCLUDE PROM, AAROM, AROM, RROM APPROPRIATE TO IMPROVE FUNCTIONAL STRENGTH AND/OR RANGE OF MOTION. OCCUPATIONAL THERAPY TO INSTRUCT PATIENT/CAREGIVER ON BED MOBILITY TECHNIQUES TO IMPROVE PATIENT MOBILITY AND POSITIONING TECHNIQUES TO ENHANCE PARTICIPATION IN ADL S AND IMPROVE PATIENT COMFORT AND DECREASE RISK OF SKIN BREAKDOWN. OCCUPATIONAL THERAPY TO INSTRUCT PATIENT/CAREGIVER ON SAFE TRANSFER TECHNIQUES USING PROPER BODY MECHANICS AND EQUIPMENT TO ENHANCE PARTICIPATION IN ADL S. OCCUPATIONAL THERAPY TO ASSESS AND RECOMMEND HOME SAFETY ADAPTATIONS AND EDUCATE PATIENT /CAREGIVER ON FALL PREVENTION STRATEGIES TO ENHANCE PARTICIPATION IN ADL S. OCCUPATIONAL THERAPY TO ASSESS AND RECOMMEND APPROPRIATE ADAPTIVE EQUIPMENT AND INSTRUCT PATIENT/CAREGIVER ON SAFE, PROPER USAGE TO ENHANCE PARTICIPATION IN ADL S/IADLS. OCCUPATIONAL THERAPY TO PROVIDE PATIENT/CAREGIVER WITH INSTRUCTIONS AND RECOMMENDATIONS TO IMPROVE IADL S INCLUDING MANAGEMENT OF HEARING AIDS WHILE USING APPROPRIATE ADAPTIVE DEVICES RECOMMENDED. OCCUPATIONAL THERAPY TO INSTRUCT PATIENT/CAREGIVER ON TECHNIQUES AND STRATEGIES FOR COGNITIVE IMPAIRMENTS INCLUDING ATTENTION, ORIENTATION, MEMORY, PROBLEM SOLVING, AND THOUGHT ORGANIZATION IN ORDER TO PROMOTE SAFETY AND INDEPENDENCE. OCCUPATIONAL THERAPIST TO ASSESS BEST PRACTICE INTERVENTIONS TO ASSIST PATIENTS TO IMPROVE OR STABILIZE MEDICAL STATUS AND PREVENT RE-HOSPITALIZATION. MEASURES INCLUDING REVIEW AND IDENTIFICATION OF CONCERNS FOR THE FOLLOWING AREAS:DRUG REGIMEN, ENVIRONMENTAL SAFETY ISSUES AND FALLS, PRESSURE ULCERS, PAIN, AND DISEASE MANAGEMENT. [code = OCCUPATIONAL THERAPIST TO EVALUATE PATIENT SECONDARY TO FUNCTIONAL DEFICITS/SAFETY CONCERNS IDENTIFIED DURING EVALUATION OCCUPATIONAL THERAPY TO ESTABLISH /UPGRADE/DOWNGRADE THERAPEUTIC EXERCISE PROGRAM AND INSTRUCT PATIENT/CAREGIVER ON EXERCISE PRECAUTIONS WITH WRITTEN HOME PROGRAM. MAY INCLUDE PROM, AAROM, AROM, RROM APPROPRIATE TO IMPROVE FUNCTIONAL STRENGTH AND/OR RANGE OF MOTION. OCCUPATIONAL THERAPY TO INSTRUCT PATIENT/CAREGIVER ON BED MOBILITY TECHNIQUES TO IMPROVE PATIENT MOBILITY AND POSITIONING TECHNIQUES TO ENHANCE PARTICIPATION IN ADL S AND IMPROVE PATIENT COMFORT AND DECREASE RISK OF SKIN BREAKDOWN. OCCUPATIONAL THERAPY TO INSTRUCT PATIENT/CAREGIVER ON SAFE TRANSFER TECHNIQUES USING PROPER BODY MECHANICS AND EQUIPMENT TO ENHANCE PARTICIPATION IN ADL S. OCCUPATIONAL THERAPY TO ASSESS AND RECOMMEND HOME SAFETY ADAPTATIONS AND EDUCATE PATIENT /CAREGIVER ON FALL PREVENTION STRATEGIES TO ENHANCE PARTICIPATION IN ADL S. OCCUPATIONAL THERAPY TO ASSESS AND RECOMMEND APPROPRIATE ADAPTIVE EQUIPMENT AND INSTRUCT PATIENT/CAREGIVER ON SAFE, PROPER USAGE TO ENHANCE PARTICIPATION IN ADL S/IADLS. OCCUPATIONAL THERAPY TO PROVIDE PATIENT/CAREGIVER WITH INSTRUCTIONS AND RECOMMENDATIONS TO IMPROVE IADL S INCLUDING MANAGEMENT OF HEARING AIDS WHILE USING APPROPRIATE ADAPTIVE DEVICES RECOMMENDED. OCCUPATIONAL THERAPY TO INSTRUCT PATIENT/CAREGIVER ON TECHNIQUES AND STRATEGIES FOR COGNITIVE IMPAIRMENTS INCLUDING ATTENTION, ORIENTATION, MEMORY, PROBLEM SOLVING, AND THOUGHT ORGANIZATION IN ORDER TO PROMOTE SAFETY AND INDEPENDENCE. OCCUPATIONAL THERAPIST TO ASSESS BEST PRACTICE INTERVENTIONS TO ASSIST PATIENTS TO IMPROVE OR STABILIZE MEDICAL STATUS AND PREVENT RE-HOSPITALIZATION. MEASURES INCLUDING REVIEW AND IDENTIFICATION OF CONCERNS FOR THE FOLLOWING AREAS:DRUG REGIMEN, ENVIRONMENTAL SAFETY ISSUES AND FALLS, PRESSURE ULCERS, PAIN, AND DISEASE MANAGEMENT.] Goal Patient Goal - TO MOVE AROUN D BETTER Goal Provider Goal - A PLAN OF CARE WILL BE ESTABLISHED THAT MEETS PATIENT'S SENIOR CARE NEEDS AND INCLUDES PATIENT GOAL FOR HOME HEALTH. Goal Provider Goal - ADDITIONAL ORDERS WILL BE RECEIVED FROM ALTERNATE PHYSICIAN IN A TIMELY MANNER THROUGHOUT THE CERTIFICATION PERIOD. Goal Provider Goal - PATIENT / CAREGIVER WILL VERBALIZE UNDERSTANDING OF EFFECTS OF URINARY INCONTINENCE BY THE END OF THE CERTIFICATION PERIOD. Goal Provider Goal - SYMPTOMS OF ANXIETY ARE IDENTIFIED AND INTERVENTIONS INITIATED TO ENABLE PATIENT TO UNDERSTAND AND MANAGE FEELINGS THROUGHOUT EPISODE. Goal Provider Goal - OCCUPATIONAL THERAPY EVALUATION TO BE COMPLETED WITH RECOMMENDATIONS AND WRITTEN PLAN OF TREATMENT ESTABLISHED FOR THE PHYSICIAN S SIGNATURE. Goal Provider Goal - A PHYSICAL THERAPY EVALUATION TO BE COMPLETED WITH RECOMMENDATIONS AND/OR WRITTEN PLAN OF TREATMENT ESTABLISHED FOR PHYSICIAN S SIGNATURE. Goal Provider Goal - PATIENT/CAREGIVER WILL VERBALIZE /DEMONSTRATE APPROPRIATE ENVIRONMENTAL/SAFETY MODIFICATIONS IN RESPONSE TO BEHAVIOR/COGNITIVE CHANGES ASSOCIATED WITH DEMENTIA DIAGNOSIS THROUGHOUT THE CERTIFICATION PERIOD. Goal Provider Goal - PATIENT/CAREGIVER WILL VERBALIZE SIGNS AND SYMPTOMS OF HYPOTENSION AND WILL BE ABLE TO DEMONSTRATE ABILITY TO MANAGE EXACERBATION BY END OF THE EPISODE. Goal Provider Goal - PATIENT WILL HAVE SUPPORT MEASURES ESTABLISHED TO PREVENT HOSPITALIZATION AND ED USE AND PATIENT/CAREGIVER WILL VERBALIZE/DEMONSTRATE METHODS TO REDUCE AVOIDABLE HOSPITALIZATION AND ED USE BY END OF EPISODE. Goal Provider Goal - PATIENT/CAREGIVER WILL VERBALIZE UNDERSTANDING OF DISCHARGE PLANNING INSTRUCTIONS BY DATE OF DISCHARGE. Goal Provider Goal - PATIENT/CAREGIVER WILL VERBALIZE/DEMONSTRATE EFFECTIVE ENVIRONMENTAL SAFETY AND FALL PREVENTION STRATEGIES, WILL REMAIN SAFE IN THE COMMUNITY, AND WILL BE FREE OF DANGER TO SELF AND OTHERS THROUGHOUT THE CERTIFICATION PERIOD. Goal Provider Goal - PATIENT/CAREGIVER WILL DEMONSTRATE UNDERSTANDING OF PHARMACOLOGIC AND NONPHARMACOLOGIC PAIN CONTROL MEASURES AND PATIENT WILL HAVE IMPROVEMENT IN PAIN INTERFERING WITH ACTIVITY EVIDENCED BY PAIN AT A LEVEL THAT IS ACCEPTABLE TO THE PATIENT AND PAIN LEVEL WITHIN ESTABLISHED PARAMETERS BY END OF CERTIFICATION PERIOD. Goal Provider Goal - PATIENT/CAREGIVER WILL VERBALIZE UNDERSTANDING OF PRESSURE ULCER PREVENTION BY END OF THE EPISODE. Goal Provider Goal - PATIENT/CAREGIVER WILL VERBALIZE/DEMONSTRATE UNDERSTANDING OF THE MANAGEMENT OF DEPRESSION THROUGHOUT THE CERTIFICATION PERIOD AND SYMPTOMS ARE IDENTIFIED AND MANAGED TO MAINTAIN PATIENT SAFETY IN THE HOME. Goal Provider Goal - PATIENT/CAREGIVER WILL VERBALIZE UNDERSTANDING OF EDUCATION PROVIDED ON MEDICATIONS BY THE END OF THE CERTIFICATION PERIOD. Goal Provider Goal - PATIENT/CAREGIVER WILL VERBALIZE UNDERSTANDING OF URINARY TRACT INFECTION DISEASE PROCESS AND MANAGEMENT. PATIENT WILL BE FREE OF S/S OF UTI UPON COMPLETION OF TREATMENT OF UTI. Goal Provider Goal - OCCUPATIONAL THERAPIST TO EVALUATE PATIENT SECONDARY TO FUNCTIONAL DEFICITS/SAFETY CONCERNS IDENTIFIED DURING EVALUATION. PATIENT/CAREGIVER WILL PERFORM THERAPEUTIC EXERCISE/S AND DEMONSTRATE PARTICIPATION IN A HOME PROGRAM. PATIENT/CAREGIVER WILL DEMONSTRATE IMPROVED BED MOBILITY TECHNIQUES. PATIENT/CAREGIVER WILL DEMONSTRATE SAFE TRANSFERS USING APPROPRIATE ASSISTIVE DEVICE, BODY MECHANICS AND EQUIPMENT. CAREGIVER/PATIENT WILL DEMONSTRATE/VERBALIZE UNDERSTANDING OF RECOMMENDATIONS TO INCREASE SAFETY IN THE HOME AND FALL PREVENTION IN ORDER TO PREVENT INJURY OR HOSPITALIZATION. PATIENT/CAREGIVER WILL DEMONSTRATE PROPER USAGE OF APPROPRIATE ADAPTIVE EQUIPMENT TO COMPLETE ADLS AND ENHANCE PARTICIPATION IN IADLS. PATIENT/CAREGIVER WILL DEMONSTRATE IMPROVED ABILITY TO PERFORM INSTRUMENTAL ACTIVITIES OF DAILY LIVING. PATIENT/CAREGIVER WILL DEMONSTRATE IMPROVED COGNITION. PATIENT/CAREGIVER VERBALIZES UNDERSTANDING OF THE INITIAL BEST PRACTICE RECOMMENDATIONS. PHYSICIAN TO BE NOTIFIED APPROPRIATE FOR ANY CHANGES OR COMPLICATIONS THROUGHOUT THE CERTIFICATION PERIOD. Encounters Start Date/Time End Date/Time Encounter Type Admission Type Attending [facility] Care Department Encounter ID Discharge Date Discharge Status Discharge Condition Discharge Reason Percent Goals Met 2025-06-23 00:00:00 2025-08-21 00:00:00 Outpatient [facility] [id number]
== END 2025-07-26 13:44 | disposition home or self-care (01) ==
PROVIDERS: Visit Provider Family Medicine
DX: N39.0 Urinary tract infection, site not specified (principal)
CPT/HCPCS: 81001; 87086